=== PATIENT | female | born 1965 | race Caucasian/White ===

== ENCOUNTER 2017-03-14 15:17 | Emergency (ER) | payer OTHER ==
[2017-03-14] MEDS ORDERED: Sodium Chloride 0.9% 1000 ML 1,000 ML IV STA (15:40)
[2017-03-14] MEDS ORDERED: Sodium Chloride 0.9% 1000 ML 1,000 ML ONE (15:43)
--- NOTE | 2017-03-14 16:04 | ERPHSYRPT ---
- History of Present Illness Time Seen by Provider: 03/14/17 16:03 Source: patient Exam Limitations: no limitations Patient Subjective Stated Complaint: pt here for loose stools since last wednesday, fever, nausea, no vomiting. Triage Nursing Assessment: pt walked in, resp easy, skin w/d pink, abd soft, pt has generalized abd pain, no edema Physician History: pt here for loose stools since last wednesday, fever, nausea, no vomiting. Timing/Duration: week(s) (one week) Associated Symptoms: abdominal pain Allergies/Adverse Reactions: codeine [Codeine] Allergy (Mild, Verified 03/14/17 15:26) doxycycline Allergy (Mild, Verified 03/14/17 15:26) Penicillins Allergy (Mild, Verified 03/14/17 15:26) aspirin Allergy (Unknown, Verified 03/14/17 15:26) Difficulty Breathing Patient states she has a sensitivity to aspirin. Home Medications: Ipratropium/Albuterol Sulfate [Combivent Inhaler] 2 puff IH .PRN PRN 07/06/12 [ History] Lisinopril 10 mg [Zestril 10 MG] 10 mg PO BID 02/28/13 [History] Fluticasone/Salmeterol [Advair 250-50 Diskus] 2 puff IH BID 01/15/15 [History] Magnesium Oxide 400 mg [Mag-Ox 400] 1 tab PO HS 06/03/15 [History] Hx Tetanus, Diphtheria Vaccination/Date Given: Yes Hx Influenza Vaccination/Date Given: No Hx Pneumococcal Vaccination/Date Given: No Immunizations Up to Date: Yes - Review of Systems Constitutional: No Fever, No Chills Eyes: No Symptoms Ears, Nose, & Throat: No Symptoms Respiratory: No Cough, No Dyspnea Cardiac: No Chest Pain, No Edema, No Syncope Abdominal/Gastrointestinal: Abdominal Pain, Diarrhea, No Nausea, No Vomiting Genitourinary Symptoms: No Dysuria Musculoskeletal: No Back Pain, No Neck Pain Skin: No Rash Neurological: No Dizziness, No Focal Weakness, No Sensory Changes Psychological: No Symptoms Endocrine: No Symptoms All Other Systems: Reviewed and Negative - Past Medical History Pertinent Past Medical History: Yes Neurological History: Peripheral Neuropathy ENT History: Other Cardiac History: Hypertension Respiratory History: Asthma Endocrine Medical History: Hypoglycemia Musculoskeletal History: Fibromyalgia GI Medical History: No Pertinent History, Other History: Other Psycho-Social History: No Pertinent History Female Reproductive Disorders: No Pertinent History Other Medical History: neuropathy. chronic fatigue. kidney failure. fibroid cyst in uterous 9 cm - Past Surgical History Past Surgical History: Yes Neuro Surgical History: No Pertinent History Cardiac: No Pertinent History Respiratory: No Pertinent History Gastrointestinal: Cholecystectomy Genitourinary: No Pertinent History Musculoskeletal: No Pertinent History Female Surgical History: Other Other Surgical History: sinus, d & c - Social History Smoking Status: Never smoker Exposure to second hand smoke: No Drug Use: none Patient Lives Alone: No Significant Family History: diabetes, hypertension - Female History Hx Last Menstrual Period: jan Hx Now: No - Nursing Vital Signs Nursing Vital Signs: Initial Vital Signs Temperature 97.7 F 03/14/17 15:21 Pulse Rate 100 H 03/14/17 15:21 Respiratory Rate 16 03/14/17 15:21 Blood Pressure 109/63 03/14/17 15:21 O2 Sat by Pulse Oximetry 96 03/14/17 15:21 Pain Scale Pain Intensity 4 - Physical Exam General Appearance: no apparent distress, alert Eye Exam: PERRL/EOMI, eyes nml inspection Ears, Nose, Throat Exam: normal ENT inspection, TMs normal, pharynx normal, moist mucous membranes Neck Exam: normal inspection, non-tender, supple, full range of motion Respiratory Exam: normal breath sounds, lungs clear, No respiratory distress Cardiovascular Exam: regular rate/rhythm, normal heart sounds, normal peripheral pulses Gastrointestinal/Abdomen Exam: soft, normal bowel sounds, No tenderness, No mass Back Exam: normal inspection, normal range of motion, No CVA tenderness, No vertebral tenderness Extremity Exam: normal inspection, normal range of motion, pelvis stable Neurologic Exam: alert, oriented x 3, cooperative, normal mood/affect, nml cerebellar function, nml station & gait, sensation nml, No motor deficits Skin Exam: normal color, warm, dry, No rash Lymphatic Exam: No adenopathy SpO2: 96 Oxygen Delivery: Room Air - Course Nursing assessment & vital signs reviewed: Yes Ordered Tests: Active Orders 24 hr Category Date Time Status Clean Catch Urine Specimen STAT Care 03/14/17 15:54 Active IV Insertion STAT Care 03/14/17 15:42 Active AMYLASE Stat Lab 03/14/17 16:05 Completed CBC W DIFF Stat Lab 03/14/17 16:05 Completed CMP Stat Lab 03/14/17 16:05 Completed CULTURE,URINE Stat Lab 03/14/17 16:05 Received LIPASE Stat Lab 03/14/17 16:05 Completed UA W/ MICROSCOPIC Stat Lab 03/14/17 16:05 Completed Urine Triage Profile Stat Lab 03/14/17 16:05 Completed Medication Summary Generic Name Dose Route Start Last Admin Trade Name Frejoanne PRN Reason Stop Dose Admin Ciprofloxacin 500 mg 03/14/17 16:37 Cipro 500 Mg PO 03/14/17 16:38 BID STA Sodium Chloride 1,000 mls @ 999 mls/hr 03/14/17 15:40 03/14/17 15:51 Sodium Chloride 0.9% 1000 Ml IV 03/14/17 16:40 999 mls/hr .Q1H1M STA Administration Discontinued Medications Generic Name Dose Route Start Last Admin Trade Name Freq PRN Reason Stop Dose Admin Sodium Chloride Confirm 03/14/17 15:43 Sodium Chloride 0.9% 1000 Ml Administered 03/14/17 15:44 Dose 1,000 mls @ ud .ROUTE .STK-MED ONE Lab/Rad Data: Laboratory Result Diagrams 03/14/17 16:05 03/14/17 16:05 Laboratory Results 03/14/17 03/14/17 03/14/17 Range/Units 16:05 16:05 16:05 WBC (4.0-10.5) K/mm3 RBC (4.1-5.4) M/mm3 Hgb (12.0-16.0) gm/dl Hct (35-47) % MCV (78-100) fl MCH (26-32) pg MCHC (32-36) g/dl RDW (11.5-14.0) % Plt Count (150-450) K/mm3 MPV (6-9.5) fl Gran % (36.0-66.0) % Lymphocytes % (24.0-44.0) % Monocytes % (0.0-12.0) % Eosinophils % (0.00-5.0) % Basophils % (0.0-0.4) % Basophils # (0-0.4) Sodium 134 L (136-145) mEq/L Potassium 3.2 L (3.5-5.1) mEq/L Chloride 101 (98-107) mEq/L Carbon Dioxide 23.7 (21-32) mEq/L Anion Gap 12.7 (5-15) MEQ/L BUN 23 H (9-20) mg/dL Creatinine 0.72 (0.55-1.30) mg/dl Estimated GFR > 60 ML/MIN Glucose 90 (70-110) MG/DL Calcium 8.6 (8.5-10.1) mg/dL Total Bilirubin 0.50 (0.2-1.0) mg/dL AST 14 L (15-37) U/L ALT 27 (12-78) U/L Alkaline Phosphatase 77 (46-116) U/L Serum Total Protein 6.9 (6.4-8.2) gm/dL Albumin 3.3 L (3.4-5.0) g/dL Amylase 36 (25-115) U/L Lipase 86 (73-393) U/L Ur Collection Type CLEAN CATCH Urine Color YELLOW (YELLOW) Urine Appearance HAZY (CLEAR) Urine pH 5.0 (5-6) Ur Specific Cunningham 1.025 (1.005-1.025) Urine Protein TRACE (Negative) Urine Ketones NEGATIVE (NEGATIVE) Urine Blood 250 (0-5) Yogi/ul Urine Nitrite NEGATIVE (NEGATIVE) Urine Bilirubin NEGATIVE (NEGATIVE) Urine Urobilinogen NORMAL (0-1) mg/dL Ur Leukocyte Esterase 2+ (NEGATIVE) Urine Microscopic RBC 5-10 (0-2) /HPF Urine Microscopic WBC 10-15 (0-5) /HPF Ur Epithelial Cells FEW (FEW) /HPF Urine Bacteria MODERATE (NEGATIVE) /HPF Urine Mucus SLIGHT (NEGATIVE) /HPF Urine Culture Reflexed YES (NO) Urine Glucose NEGATIVE (NEGATIVE) mg/dL Urine Opiates Level NEG. (NEGATIVE) Ur Methadone NEG. (NEGATIVE) Urine Barbiturates NEG. (NEGATIVE) Ur Phencyclidine (PCP) NEG. (NEGATIVE) Urine Amphetamine NEG. (NEGATIVE) U Benzodiazepine Level NEG. (NEGATIVE) Urine Cocaine NEG. (NEGATIVE) Urine Marijuana (THC) NEG. (NEGATIVE) Specimen Received 03-145 03/14/17 Range/Units 16:05 WBC 6.6 (4.0-10.5) K/mm3 RBC 4.54 (4.1-5.4) M/mm3 Hgb 12.9 (12.0-16.0) gm/dl Hct 40.4 (35-47) % MCV 89.0 (78-100) fl MCH 28.4 (26-32) pg MCHC 31.9 L (32-36) g/dl RDW 15.8 H (11.5-14.0) % Plt Count 277 (150-450) K/mm3 MPV 8.7 (6-9.5) fl Gran % 75.3 H (36.0-66.0) % Lymphocytes % 14.5 L (24.0-44.0) % Monocytes % 8.6 (0.0-12.0) % Eosinophils % 1.4 (0.00-5.0) % Basophils % 0.2 (0.0-0.4) % Basophils # 0.01 (0-0.4) Sodium (136-145) mEq/L Potassium (3.5-5.1) mEq/L Chloride (98-107) mEq/L Carbon Dioxide (21-32) mEq/L Anion Gap (5-15) MEQ/L BUN (9-20) mg/dL Creatinine (0.55-1.30) mg/dl Estimated GFR ML/MIN Glucose (70-110) MG/DL Calcium (8.5-10.1) mg/dL Total Bilirubin (0.2-1.0) mg/dL AST (15-37) U/L ALT (12-78) U/L Alkaline Phosphatase (46-116) U/L Serum Total Protein (6.4-8.2) gm/dL Albumin (3.4-5.0) g/dL Amylase (25-115) U/L Lipase (73-393) U/L Ur Collection Type Urine Color (YELLOW) Urine Appearance (CLEAR) Urine pH (5-6) Ur Specific Cunningham (1.005-1.025) Urine Protein (Negative) Urine Ketones (NEGATIVE) Urine Blood (0-5) Yogi/ul Urine Nitrite (NEGATIVE) Urine Bilirubin (NEGATIVE) Urine Urobilinogen (0-1) mg/dL Ur Leukocyte Esterase (NEGATIVE) Urine Microscopic RBC (0-2) /HPF Urine Microscopic WBC (0-5) /HPF Ur Epithelial Cells (FEW) /HPF Urine Bacteria (NEGATIVE) /HPF Urine Mucus (NEGATIVE) /HPF Urine Culture Reflexed (NO) Urine Glucose (NEGATIVE) mg/dL Urine Opiates Level (NEGATIVE) Ur Methadone (NEGATIVE) Urine Barbiturates (NEGATIVE) Ur Phencyclidine (PCP) (NEGATIVE) Urine Amphetamine (NEGATIVE) U Benzodiazepine Level (NEGATIVE) Urine Cocaine (NEGATIVE) Urine Marijuana (THC) (NEGATIVE) Specimen Received - Progress Progress: improved Counseled pt/family regarding: lab results, diagnosis, need for follow-up - Departure Time of Disposition: 16:41 Departure Disposition: Home Clinical Impression: Recurrent urinary tract infection Diarrhea Qualifiers: Diarrhea type: unspecified type Qualified Code(s): R19.7 - Diarrhea, unspecified Condition: Stable Critical Care Time: No Referrals: BETH KENT [Primary Care Provider] - Instructions: Urinary Tract Infection (UTI), Diarrhea and Traveler's Diarrhea - - Adult Additional Instructions: VOMITING AND DIARRHEA 1. Take only small amounts of clear, cool liquids at frequent intervals as tolerated for the next 24-48 hours. Avoid milk products and orange juice. Clear liquids are those liquids which you can see through. 2. Pedialyte and popsicles are recommended clear liquids. 3. If the condition worsens you should contact your family physician or return to the emergency department for re-evaluation. URINARY TRACT INFECTION 1. You will need to drink plenty of fluids in order to keep your urinary system flushed. These fluids should mainly consist of water and juices. 2. Take medications as directed. You need to completely finish any antiobiotic prescription given. 3. Try to avoid coffee, tea, alcohol, and seasoned foods as they may cause bladder irritation. 4. If signs and symptoms persist after 3-4 days, you will need to follow up with your family physician. 5. Female Patients: A. Avoid intercourse for 3-4 days. B. Empty bladder before and after intercourse to reduce risk of re- infection. C. After emptying bladder, wipe from front to back to reduce the risk of re- infection. Please follow the instructions given to you. Please take your medication as prescribed if given. If symptoms recur or get worse, come back to the emergency room if you cannot reach your primary care physician, or call your primary care physician for an appointment. Again if your symptoms get worse, come back to the emergency room. Thanks for visiting emergency room, and let us take care of you. Prescriptions: Ciprofloxacin [Cipro 500 MG] 500 mg PO BIDAC #15 tablet
[2017-03-14 16:10] LABS: BASOPHIL % 0.2 % (0.0-0.4); Eosinophil % 1.4 % (0.00-5.0); Granulocytes % 75.3 % (36.0-66.0); Lymphocytes % 14.5 % (24.0-44.0); Mean Corpuscular Hemoglobin 28.4 pg (26-32); Mean Platelet Volume 8.7 fl (6-9.5); Monocytes % 8.6 % (0.0-12.0); Platelet Count 277 K/mm3 (150-450); Red Blood Count 4.54 M/mm3 (4.1-5.4); Red Cell Distribution Width 15.8 % (11.5-14.0); White Blood Count 6.6 K/mm3 (4.0-10.5)
[2017-03-14 16:12] LABS: Collection Type CLEAN CATCH
[2017-03-14 16:13] LABS: Bilirubin NEGATIVE (NEGATIVE); Blood 250 Ery/ul (0-5); COMPLETE URINE MICROSCOPIC? YES; Glucose NEGATIVE (NEGATIVE); Leukocyte Esterase 2+ (NEGATIVE)
[2017-03-14 16:26] LABS: ADD URINE CULTURE? YES (NO); Bacteria MODERATE /HPF (NEGATIVE); Epithelial Cells FEW /HPF (FEW); Mucus SLIGHT /HPF (NEGATIVE)
[2017-03-14 16:35] LABS: ALBUMIN 3.3 g/dL (3.4-5.0); ALKALINE PHOSPHATASE 77 U/L (46-116); ANION GAP 12.7 MEQ/L (5-15); BLOOD UREA NITROGEN 23 mg/dL (9-20); CHLORIDE 101 mEq/L (98-107); Carbon Dioxide 23.7 mEq/L (21-32); Glucose 90 MG/DL (70-110); LIPASE 86 U/L (73-393); Potassium 3.2 mEq/L (3.5-5.1); SGOT/AST 14 U/L (15-37); SGPT/ALT 27 U/L (12-78); SODIUM 134 mEq/L (136-145); Total Protein 6.9 gm/dL (6.4-8.2)
[2017-03-14] MEDS ORDERED: Cipro 500 MG PO STA (16:37)
[2017-03-14] MEDS ORDERED: Cipro 500 MG ONE (16:40)
[2017-03-14 16:41] VITALS: O2SAT 96
[2017-03-14 16:48] VITALS: BP 104/60; PULSE 84
== END 2017-03-14 16:55 | disposition home or self-care (01) ==
LOC: ED 15:17
DX: N39.0 Urinary tract infection, site not specified (principal); R19.7 Diarrhea, unspecified; R50.9 Fever, unspecified; R11.0 Nausea; R10.9 Unspecified abdominal pain
CPT/HCPCS: 36000; 36415; 80053; 80307; 81000; 82150; 83690; 85025; 87086; 96360; 99284; A9270-GY

== ENCOUNTER 2017-05-01 18:41 | Emergency (ER) | payer OTHER ==
[2017-05-01] MEDS ORDERED: Rocephin 1000 MG INJ IM ONE (20:11)
[2017-05-01] MEDS ORDERED: Rocephin 1000 MG INJ ONE (20:17)
--- NOTE | 2017-05-01 20:17 | ERPHSYRPT ---
- History of Present Illness Time Seen by Provider: 05/01/17 20:12 Source: patient Exam Limitations: no limitations Physician History: c/o sore throat, left ear pain for 2-3 days, no fever Timing/Duration: gradual onset ENT Location: ear (L) Prearrival Treatment: no prearrival treatment Associated Symptoms: ear pain (L), nasal congestion/drainage, sinus infection, sore throat, No ear drainage Allergies/Adverse Reactions: codeine [Codeine] Allergy (Mild, Verified 03/14/17 15:26) doxycycline Allergy (Mild, Verified 03/14/17 15:26) Penicillins Allergy (Mild, Verified 03/14/17 15:26) aspirin Allergy (Unknown, Verified 03/14/17 15:26) Difficulty Breathing Patient states she has a sensitivity to aspirin. Home Medications: Ipratropium/Albuterol Sulfate [Combivent Inhaler] 2 puff IH .PRN PRN 07/06/12 [ History] Lisinopril 10 mg [Zestril 10 MG] 10 mg PO BID 02/28/13 [History] Fluticasone/Salmeterol [Advair 250-50 Diskus] 2 puff IH BID 01/15/15 [History] Magnesium Oxide 400 mg [Mag-Ox 400] 1 tab PO HS 06/03/15 [History] Hx Tetanus, Diphtheria Vaccination/Date Given: Yes Hx Influenza Vaccination/Date Given: No Hx Pneumococcal Vaccination/Date Given: No - Review of Systems Constitutional: No Fever, No Chills Eyes: No Symptoms Ears, Nose, & Throat: Ear Pain, Sinus Drainage Respiratory: No Cough, No Dyspnea Cardiac: No Chest Pain, No Edema, No Syncope Abdominal/Gastrointestinal: No Abdominal Pain, No Nausea, No Vomiting, No Diarrhea Genitourinary Symptoms: No Dysuria Musculoskeletal: No Back Pain, No Neck Pain Skin: No Rash Neurological: No Dizziness, No Focal Weakness, No Sensory Changes Psychological: No Symptoms Endocrine: No Symptoms All Other Systems: Reviewed and Negative - Past Medical History Pertinent Past Medical History: Yes Neurological History: Peripheral Neuropathy ENT History: Other Cardiac History: Hypertension Respiratory History: Asthma Endocrine Medical History: Hypoglycemia Musculoskeletal History: Fibromyalgia GI Medical History: No Pertinent History, Other History: Other Psycho-Social History: No Pertinent History Female Reproductive Disorders: No Pertinent History Other Medical History: neuropathy. chronic fatigue. kidney failure. fibroid cyst in uterous 9 cm - Past Surgical History Past Surgical History: Yes Neuro Surgical History: No Pertinent History Cardiac: No Pertinent History Respiratory: No Pertinent History Gastrointestinal: Cholecystectomy Genitourinary: No Pertinent History Musculoskeletal: No Pertinent History Female Surgical History: Other Other Surgical History: sinus, d & c - Social History Smoking Status: Never smoker Exposure to second hand smoke: No Drug Use: none Patient Lives Alone: No Significant Family History: diabetes, hypertension - Physical Exam General Appearance: no apparent distress, alert Eye Exam: bilateral eye: PERRL, EOMI Ear Exam: left ear: erythema Nasal Exam: normal inspection Throat Exam: moist mucus membranes, pharynx swelling, No pharynx tenderness, No tonsillar exudate Neck Exam: supple Cardiovascular/Respiratory Exam: normal breath sounds, regular rate/rhythm Abdominal Exam: non-tender, soft Neurologic Exam: alert, oriented x 3, sensation nml, No motor deficits Skin Exam: normal color, warm, dry - Course Nursing assessment & vital signs reviewed: Yes Ordered Tests: Medication Summary Discontinued Medications Generic Name Dose Route Start Last Admin Trade Name Freq PRN Reason Stop Dose Admin Ceftriaxone Sodium 1,000 mg 05/01/17 20:11 Rocephin 1000 Mg Inj IM 05/01/17 20:12 STAT ONE - Progress Progress: unchanged Counseled pt/family regarding: diagnosis, need for follow-up - Departure Time of Disposition: 20:14 Departure Disposition: Home Clinical Impression: Otitis media Qualifiers: Otitis media type: suppurative Chronicity: acute Laterality: left Recurrence: not specified as recurrent Spontaneous tympanic membrane rupture: without spontaneous rupture Qualified Code(s): H66.002 - Acute suppurative otitis media without spontaneous rupture of ear drum, left ear Condition: Stable Critical Care Time: No Instructions: Otitis Media (Middle Ear Infection) Additional Instructions: EARACHE 1. If antibiotics are prescribed, take them as directed until gone. 2. Decongestants may be useful. 3. Avoid inserting objects into the ear, such as Q-tips. 4. Acetaminophen or Ibuprofen as directed may help reduce any temperature and help with any associated pain. 5. Contact your child's family physician if there is no improvement in the child's condition within 48 hours. Prescriptions: Smz/Tmp Ds Tablet [Bactrim Ds Tablet] 1 udtab PO BID #20 tablet
[2017-05-01 20:24] VITALS: BP 129/55; PULSE 83; O2SAT 100
== END 2017-05-01 20:34 | disposition home or self-care (01) ==
LOC: ED 18:41
DX: H66.002 Acute suppurative otitis media without spontaneous rupture of ear drum, left ear (principal)
CPT/HCPCS: 96372; 99283; J0696

== ENCOUNTER 2017-06-12 19:40 | Emergency (ER) | payer OTHER ==
--- NOTE | 2017-06-12 20:32 | ERPHSYRPT ---
- History of Present Illness Time Seen by Provider: 06/12/17 20:20 Source: patient Exam Limitations: no limitations Patient Subjective Stated Complaint: Cough, fever Triage Nursing Assessment: Cough earlier today, now states fever and increased SOB with activity. Pt denies other complaints. Pt is A&O x4, no distress noted. Physician History: SINCE YESTERDAY PT HAS HAD NAUSEA; TODAY A SORE THROAT, SUBJECTIVE FEVER, A NON- PRODUCTIVE COUGH AND ACHES IN HER LEGS, BACK AND CHEST. Allergies/Adverse Reactions: codeine [Codeine] Allergy (Mild, Verified 03/14/17 15:26) doxycycline Allergy (Mild, Verified 03/14/17 15:26) Penicillins Allergy (Mild, Verified 03/14/17 15:26) aspirin Allergy (Unknown, Verified 03/14/17 15:26) Difficulty Breathing Patient states she has a sensitivity to aspirin. Home Medications: Ipratropium/Albuterol Sulfate [Combivent Inhaler] 2 puff IH .PRN PRN 07/06/12 [ History] Lisinopril 10 mg [Zestril 10 MG] 10 mg PO BID 02/28/13 [History] Fluticasone/Salmeterol [Advair 250-50 Diskus] 2 puff IH BID 01/15/15 [History] Magnesium Oxide 400 mg [Mag-Ox 400] 1 tab PO HS 06/03/15 [History] Hx Tetanus, Diphtheria Vaccination/Date Given: No Hx Influenza Vaccination/Date Given: No Hx Pneumococcal Vaccination/Date Given: No Immunizations Up to Date: No - Review of Systems Constitutional: Fever Ears, Nose, & Throat: Throat Pain Respiratory: Cough Abdominal/Gastrointestinal: Nausea Musculoskeletal: Myalgias All Other Systems: Reviewed and Negative - Past Medical History Pertinent Past Medical History: Yes Neurological History: Peripheral Neuropathy ENT History: Other Cardiac History: Hypertension Respiratory History: Asthma Endocrine Medical History: Hypoglycemia Musculoskeletal History: Fibromyalgia GI Medical History: No Pertinent History, Other History: Other Psycho-Social History: No Pertinent History Female Reproductive Disorders: No Pertinent History Other Medical History: neuropathy. chronic fatigue. kidney failure. fibroid cyst in uterous 9 cm - Past Surgical History Past Surgical History: Yes Neuro Surgical History: No Pertinent History Cardiac: No Pertinent History Respiratory: No Pertinent History Gastrointestinal: Cholecystectomy Genitourinary: No Pertinent History Musculoskeletal: No Pertinent History Female Surgical History: Other Other Surgical History: sinus, d & c - Social History Smoking Status: Never smoker Exposure to second hand smoke: No Drug Use: none Patient Lives Alone: No Significant Family History: diabetes, hypertension - Female History Hx Now: No - Nursing Vital Signs Nursing Vital Signs: Initial Vital Signs Temperature 98.5 F 06/12/17 19:47 Pulse Rate 113 H 06/12/17 19:47 Respiratory Rate 22 06/12/17 19:47 Blood Pressure 125/94 06/12/17 19:47 O2 Sat by Pulse Oximetry 97 06/12/17 19:47 Pain Scale Pain Intensity 4 - Physical Exam General Appearance: alert Eye Exam: PERRL/EOMI Ears, Nose, Throat Exam: TMs normal, moist mucous membranes, pharyngeal erythema Neck Exam: normal inspection Respiratory Exam: lungs clear Cardiovascular Exam: normal heart sounds Gastrointestinal/Abdomen Exam: soft, normal bowel sounds Back Exam: normal range of motion Extremity Exam: normal inspection Neurologic Exam: alert, cooperative Skin Exam: warm, dry SpO2 Interpretation: normal SpO2: 97 Oxygen Delivery: Room Air - Course Nursing assessment & vital signs reviewed: Yes Ordered Tests: Active Orders 24 hr Category Date Time Status CULTURE, THROAT Stat Lab 06/12/17 20:43 Received STREP SCREEN-BETA A Stat Lab 06/12/17 20:43 Completed Lab/Rad Data: Laboratory Results 06/12/17 Range/Units 20:43 Streptococcus Screen NEGATIVE (Negative) - Progress Progress Note: 06/12/17 21:42 PT CANNOT TAKE TAMIFLU. - Departure Time of Disposition: 21:43 Departure Disposition: Home Clinical Impression: INFLUENZA "A" Condition: Stable Critical Care Time: No Referrals: BETH KENT [Primary Care Provider] - Instructions: Flu Additional Instructions: FOLLOW UP WITH PRIVATE DOCTOR TOMORROW. Prescriptions: Ibuprofen 200 mg [Motrin 200 mg] 600 mg PO Q6HPRN PRN #20 tablet PRN Reason: Pain And/Or Fever
[2017-06-12 21:38] LABS: INFLUENZA A POSITIVE (NEGATIVE); INFLUENZA B NEGATIVE (NEGATIVE); RESPIRATORY SYNCTIAL VIRUS NEGATIVE (Negative)
[2017-06-12 22:00] VITALS: BP 122/74; PULSE 100; O2SAT 98
== END 2017-06-12 22:00 | disposition home or self-care (01) ==
LOC: ED 19:40
DX: J10.1 Influenza due to other identified influenza virus with other respiratory manifestations (principal)
CPT/HCPCS: 87070; 87430; 87631; 99283

== ENCOUNTER 2017-07-08 23:04 | Emergency (ER) | payer OTHER ==
[2017-07-08] MEDS ORDERED: ULTRAM 50 MG PO ONE (23:43)
[2017-07-08] MEDS ORDERED: Cyclobenzaprine 10 MG PO ONE (23:46)
--- NOTE | 2017-07-08 23:48 | ERPHSYRPT ---
- History of Present Illness Time Seen by Provider: 07/08/17 23:34 Source: patient Exam Limitations: no limitations Patient Subjective Stated Complaint: Left Arm Pain Triage Nursing Assessment: Pt presents to the ED with complaints of left arm pain after falling today. Pt states she was pulled by dog to the ground. Pt states she has left shoulder pain, left rib pain, and left teixeira pain. Pt denies loss of consciousness. Pt is A&O x4, no distress noted, skin pwd. Physician History: AT 1500 YESTERDAY AT HER DAUGHTER'S RESIDENCE PT WAS WALKING AN ALMOST 4 YEAR OLD BL[employer]US[employer] DOG WITH HER LEFT HAND ON THE LEASH WHEN THE DOG PULLED HER AND SHE FELL ON A WOODEN DECK ON HER LEFT SIDE HITTING THE LEFT SIDE OF HER HEAD WITH RESULTANT HEADACHE, NECK STIFFNESS, BRUISING OF THE LEFT TEIXEIRA, PAIN/ ABRASION OF THE LEFT ELBOW, PAIN IN THE LEFT ARM, RIBS AND SHOULDER. PT DENIES ABDOMINAL PAIN, FEVER, VOMITING, SHORTNESS OF AIR, NUMBNESS. Allergies/Adverse Reactions: codeine [Codeine] Allergy (Mild, Verified 03/14/17 15:26) doxycycline Allergy (Mild, Verified 03/14/17 15:26) Penicillins Allergy (Mild, Verified 03/14/17 15:26) aspirin Allergy (Unknown, Verified 03/14/17 15:26) Difficulty Breathing Patient states she has a sensitivity to aspirin. Home Medications: Ipratropium/Albuterol Sulfate [Combivent Inhaler] 2 puff IH .PRN PRN 07/06/12 [ History] Lisinopril 10 mg [Zestril 10 MG] 10 mg PO BID 02/28/13 [History] Fluticasone/Salmeterol [Advair 250-50 Diskus] 2 puff IH BID 01/15/15 [History] Magnesium Oxide 400 mg [Mag-Ox 400] 1 tab PO HS 06/03/15 [History] Hx Tetanus, Diphtheria Vaccination/Date Given: Yes Hx Influenza Vaccination/Date Given: No Hx Pneumococcal Vaccination/Date Given: No Immunizations Up to Date: No - Review of Systems Constitutional: No Fever Respiratory: No Dyspnea Cardiac: Other (LEFT RIB PAIN) Abdominal/Gastrointestinal: No Abdominal Pain, No Vomiting Musculoskeletal: Neck Pain, Other (PAIN IN LEFT SHOULDER, ARM, ELBOW, TEIXEIRA.) Neurological: Headache, No Sensory Changes All Other Systems: Reviewed and Negative - Past Medical History Pertinent Past Medical History: Yes Neurological History: Peripheral Neuropathy ENT History: Other Cardiac History: Hypertension Respiratory History: Asthma Endocrine Medical History: Hypoglycemia Musculoskeletal History: Fibromyalgia GI Medical History: No Pertinent History, Other History: Other Psycho-Social History: No Pertinent History Female Reproductive Disorders: No Pertinent History Other Medical History: neuropathy. chronic fatigue. kidney failure. fibroid cyst in uterous 9 cm - Past Surgical History Past Surgical History: Yes Neuro Surgical History: No Pertinent History Cardiac: No Pertinent History Respiratory: No Pertinent History Gastrointestinal: Cholecystectomy Genitourinary: No Pertinent History Musculoskeletal: No Pertinent History Female Surgical History: Other Other Surgical History: sinus, d & c - Social History Smoking Status: Never smoker Exposure to second hand smoke: No Drug Use: none Patient Lives Alone: No Significant Family History: diabetes, hypertension - Female History Hx Now: No - Nursing Vital Signs Nursing Vital Signs: Initial Vital Signs Temperature 97.4 F 07/08/17 23:15 Pulse Rate 82 07/08/17 23:15 Respiratory Rate 16 07/08/17 23:15 Blood Pressure 146/95 07/08/17 23:15 O2 Sat by Pulse Oximetry 96 07/08/17 23:15 Pain Scale Pain Intensity 7 - [place] Coma Score Best Eye Response (Gaurang): (4) open spontaneously Best Verbal Response (Gaurang): (5) oriented Best Motor Response (Gaurang): (6) obeys commands Gaurang Total: 15 - Physical Exam General Appearance: alert Head Injury: no evidence of injury Eye Exam: PERRL/EOMI ENT Exam: airway nml, hearing grossly normal, No clear fluid (ears), No clear fluid (nose) Neck Exam: trachea midline, No tenderness Respiratory/Chest Exam: chest tenderness (MILD LEFT LATERAL CHEST TENDERNESS OVER THE 7TH RIB WITHOUT CREPITUS), normal breath sounds Cardiovascular Exam: normal heart sounds Gastrointestinal Exam: soft, normal bowel sounds Back Exam: normal range of motion Extremity Exam: tenderness (MILD TENDERNESS OVER A ~ 3 CM DIAMETER [place] OVER THE DISTAL LEFT TEIXEIRA; MILD TENDERNESS OVER THE DISTAL ASPECT OF THE LEFT ARM; MILD TENDERNESS OVER A ~2 CM X 1/2 CM ABRASION OF THE LEFT ELBOW WITH MILD EDEMA.) Peripheral Pulses: dorsalis-pedis (R): 3+, dorsalis-pedis (L): 3+ Neurologic Exam: alert, cooperative, sensation nml SpO2 Interpretation: normal SpO2: 96 Oxygen Delivery: Room Air - Course Nursing assessment & vital signs reviewed: Yes - Radiology Exams Left Ribs X-ray Interpretation: Teleradiologist Report (NO ACUTE FRACTURE) Left Elbow X-ray Interpretation: Teleradiologist Report (MILD IRREGULARITY OF THE CORONOID PROCESS ON THE LATERAL VIEW IS LIKELY DEGENERATIVE.) Left Lower Leg X-ray Interpretation: Interpreted by me, No Fracture - CT Exams Cervical Spine CT Interpretation: Tele-radiologist Report (NO ACUTE FRACTURE) Head CT Interpretation: Tele-radiologist Report (NO ACUTE INTRACRANIAL PROCESS) Ordered Tests: Active Orders 24 hr Category Date Time Status Cervical Collar Application STAT Care 07/08/17 23:43 Active Sling Application STAT Care 07/08/17 23:43 Active Wound Care STAT Care 07/09/17 01:34 Active CERVICAL SPINE WO CONTRAST [CT] Stat Exams 07/08/17 23:44 Taken ELBOW (MINIMUM 3 VIEWS) Stat Exams 07/09/17 00:23 Taken HEAD WITHOUT CONTRAST [CT] Stat Exams 07/08/17 23:44 Taken HUMERUS Stat Exams 07/09/17 00:23 Taken LOWER LEG Routine Exams 07/09/17 01:13 Taken RIBS UNILATERAL Stat Exams 07/09/17 00:23 Taken SHOULDER Stat Exams 07/09/17 00:23 Taken Medication Summary Discontinued Medications Generic Name Dose Route Start Last Admin Trade Name Freq PRN Reason Stop Dose Admin Cyclobenzaprine HCl 10 mg 07/08/17 23:46 07/09/17 00:56 Cyclobenzaprine 10 Mg PO 07/08/17 23:47 10 mg STAT ONE Administration Cyclobenzaprine HCl Confirm 07/09/17 00:17 Cyclobenzaprine 10 Mg Administered 07/09/17 00:18 Dose 10 mg .ROUTE .STK-MED ONE Tramadol HCl 50 mg 07/08/17 23:43 07/09/17 00:56 Ultram 50 Mg PO 07/08/17 23:44 50 mg STAT ONE Administration Tramadol HCl Confirm 07/09/17 00:17 Ultram 50 Mg Administered 07/09/17 00:18 Dose 50 mg .ROUTE .STK-MED ONE - Departure Time of Disposition: 01:41 Departure Disposition: Home Clinical Impression: FALL, HEAD CONTUSION, CERVICAL SPRAIN, LEFT LEG CONTUSION, CONTUSION/ABRASION OF LEFT ELBOW, LEFT SHOULDER SPRAIN, LEFT ARM AND RIB PAIN Condition: Stable Critical Care Time: No Referrals: BETH KENT [Primary Care Provider] - Instructions: Whiplash (DC) Additional Instructions: FOLLOW UP WITH PRIVATE DOCTOR TOMORROW. WEAR SOFT C-COLLAR FOR 2 WEEKS ONLY WHILE AWAKE. WEAR LEFT ARM SLING FOR COMFORT. NEOSPORIN & BANDAGE DAILY TO LEFT ELBOW ABRASION FOR 7 DAYS. Prescriptions: Tramadol HCl 50 mg [Ultram 50 mg] 50 mg PO Q4H PRN PRN #20 tablet PRN Reason: Pain Cyclobenzaprine HCl [Flexeril] 10 mg PO TID #20 tablet
[2017-07-09] MEDS ORDERED: Cyclobenzaprine 10 MG ONE (00:17)
[2017-07-09] MEDS ORDERED: ULTRAM 50 MG ONE (00:17)
[2017-07-09 01:03] VITALS: BP 133/67; PULSE 60
[2017-07-09 01:32] VITALS: O2SAT 96
[2017-07-09] MEDS ORDERED: BACIGUENT PACKET TP ONE (01:42)
[2017-07-09] MEDS ORDERED: BACIGUENT PACKET ONE (01:43)
--- NOTE | 2017-07-09 09:12 | XRAY ---
Indication: Pain following fall. Multiple contiguous axial images obtained through the head without contrast. Comparison: July 24, 2014. Again normal appearing brain parenchyma, ventricles, and bony calvarium. Visualized paranasal sinuses and mastoid air cells are clear. Impression: Stable normal CT head without contrast exam. Comment: Preliminary interpretation was made by [facility]. No discrepancy. CT DI 49.27
--- NOTE | 2017-07-09 09:14 | XRAY ---
Indication: Pain following fall. Multiple contiguous axial images obtained through the cervical spine. Sagittal and coronal reformatted images obtained. Comparison: None. Axial images negative for acute fracture, suspicious bony lesions, or spinal canal stenosis. Minimal C5-T1 degenerative endplate spurring and tiny superior C5 subcortical cyst. Sagittal and coronal reformatted images demonstrates normal alignment with disc spaces preserved. No acute compression fracture, subluxation, or jumped facet. Normal-appearing craniocervical junction. Visualized noncontrasted soft tissues including base of the brain and lung apices unremarkable. Impression: 1. Negative acute fracture/subluxation. 2. Incidental minimal C5-T1 degenerative changes. Comment: Preliminary interpretation was made by [facility]. No critical discrepancy. CT DI 125.13
--- NOTE | 2017-07-09 09:18 | XRAY ---
Indication: Pain following fall. Comparison: None 3 views of the left shoulder obtained. No bony, articular, or soft tissue abnormalities.
--- NOTE | 2017-07-09 09:20 | XRAY ---
Indication: Pain following fall. Comparison: None 2 views of the left ribs demonstrates minimal left lung base discoid atelectasis/scarring, mediastinal/splenic calcified granulomas, and minimal multilevel spinal degenerative endplate spurring. No other bony, articular, or soft tissue abnormalities. Comment: Preliminary interpretation was made by [facility]. No discrepancy.
--- NOTE | 2017-07-09 09:22 | XRAY ---
Indication: Pain following fall. Comparison: None 2 views of the left humerus obtained. No bony, articular, or soft tissue abnormalities.
--- NOTE | 2017-07-09 09:24 | XRAY ---
Indication: Pain following fall. Comparison: None 3 views of the left elbow demonstrates tiny coronoid process spurring. No other bony, articular, or soft tissue abnormalities. Comment: Preliminary interpretation was made by [facility]. No discrepancy.
--- NOTE | 2017-07-09 09:24 | XRAY ---
Indication: Pain following fall. Comparison: None 2 views of the left lower leg demonstrates partially visualized calcaneal spurring. No other bony, articular, or soft tissue abnormalities.
== END 2017-07-09 01:45 | disposition home or self-care (01) ==
LOC: ED 23:04
DX: S00.93XA Contusion of unspecified part of head, initial encounter (principal); S13.4XXA Sprain of ligaments of cervical spine, initial encounter; S50.02XA Contusion of left elbow, initial encounter; S40.012A Contusion of left shoulder, initial encounter; R51 Headache; R07.81 Pleurodynia; M79.602 Pain in left arm; W18.39XA Other fall on same level, initial encounter; Y93.K1 Activity, walking an animal
CPT/HCPCS: 70450; 71100; 72125; 73030; 73060; 73080; 73590; 99283; L0120; A9270-GY

== ENCOUNTER 2017-08-11 22:03 | Emergency (ER) | payer OTHER ==
[2017-08-11 22:21] VITALS: O2SAT 93
[2017-08-11] MEDS ORDERED: TYLENOL 325 MG PO STA (22:55)
--- NOTE | 2017-08-11 22:59 | ERPHSYRPT ---
- History of Present Illness Time Seen by Provider: 08/11/17 22:30 Source: patient Exam Limitations: clinical condition Patient Subjective Stated Complaint: Fever and "I think I have the flu." Bilateral leg aches. Triage Nursing Assessment: Pt presents to the ED with complaints of fever. Pt states she was diagnosed with flu in Jun and states she believes her symtpoms are the same. Pt states she first began with cough and nasal drainage but has sense developed a fever. No distress noted, skin PWD. Physician History: PATIENT WITH A HISTORY OF FIBROMYALGIA, HYPERTENSION AND ASTHMA, COMPLAINS OF FLU LIKE SYMPTOMS X 3 DAYS, NONPRODUCTIVE COUGH, UNSURE OF FEVER OR CHILLS. PATIENT COMPLAINS OF SEVERE PAIN IN BOTH LEGS. 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 Home Medications: Ipratropium/Albuterol Sulfate [Combivent Inhaler] 2 puff IH .PRN PRN 07/06/12 [ History] Lisinopril 10 mg [Zestril 10 MG] 10 mg PO BID 02/28/13 [History] Fluticasone/Salmeterol [Advair 250-50 Diskus] 2 puff IH BID 01/15/15 [History] Magnesium Oxide 400 mg [Mag-Ox 400] 1 tab PO HS 06/03/15 [History] Hx Tetanus, Diphtheria Vaccination/Date Given: No Hx Influenza Vaccination/Date Given: No Hx Pneumococcal Vaccination/Date Given: No Immunizations Up to Date: No - Review of Systems Constitutional: Fever Eyes: No Symptoms Ears, Nose, & Throat: No Symptoms Respiratory: No Cough, No Dyspnea Cardiac: No Symptoms, No Chest Pain, No Edema, No Syncope Abdominal/Gastrointestinal: No Symptoms, No Abdominal Pain, No Nausea, No Vomiting, No Diarrhea Genitourinary Symptoms: No Symptoms, No Dysuria Musculoskeletal: Arthralgias, No Back Pain, No Neck Pain Skin: No Rash Neurological: No Dizziness, No Focal Weakness, No Sensory Changes Psychological: No Symptoms Endocrine: No Symptoms All Other Systems: Reviewed and Negative - Past Medical History Pertinent Past Medical History: Yes Neurological History: Peripheral Neuropathy ENT History: Other Cardiac History: Hypertension Respiratory History: Asthma Endocrine Medical History: Hypoglycemia Musculoskeletal History: Fibromyalgia GI Medical History: No Pertinent History, Other History: Other Psycho-Social History: No Pertinent History Female Reproductive Disorders: No Pertinent History Other Medical History: neuropathy. chronic fatigue. kidney failure. fibroid cyst in uterous 9 cm - Past Surgical History Past Surgical History: Yes Neuro Surgical History: No Pertinent History Cardiac: No Pertinent History Respiratory: No Pertinent History Gastrointestinal: Cholecystectomy Genitourinary: No Pertinent History Musculoskeletal: No Pertinent History Female Surgical History: Other Other Surgical History: sinus, d & c - Social History Smoking Status: Never smoker Exposure to second hand smoke: No Drug Use: none Patient Lives Alone: No Significant Family History: diabetes, hypertension - Female History Hx Now: No - Nursing Vital Signs Nursing Vital Signs: Initial Vital Signs Temperature 99.3 F 08/11/17 22:15 Pulse Rate 100 H 08/11/17 22:15 Respiratory Rate 16 08/11/17 22:15 Blood Pressure 153/72 08/11/17 22:15 O2 Sat by Pulse Oximetry 93 L 08/11/17 22:15 Pain Scale Pain Intensity 7 - Physical Exam General Appearance: no apparent distress, alert Eye Exam: PERRL/EOMI ENT Exam: normal ENT inspection, No pharyngeal erythema, No tonsillar exudate Neck Exam: normal inspection, non-tender, supple, full range of motion, No meningismus Respiratory Exam: normal breath sounds, lungs clear, no respiratory distress Cardiovascular/Chest Exam: normal heart sounds, regular rate/rhythm, No murmur, No edema Gastrointestinal/Abdominal Exam: soft, non tender, no distention Extremity Exam: normal range of motion, normal inspection, normal capillary refill, andres's sign (BILATERAL CALF AND THIGH TENDERNESS, FEMORAL, POPLITEAL AND PEDIS PULSES 2+) Neurologic Exam: alert, oriented x 3, cooperative, area counselor II-XII nml as tested, normal mood/affect, sensation nml, No motor deficits Skin Exam: normal color, warm, dry, No rash SpO2 Interpretation: normal SpO2: 93 Oxygen Delivery: Room Air - Radiology Exams Chest X-ray Interpretation: Interpreted by me (HYPER INFLATION, WITHOUT INFILTRATES) - Radiology Ultrasound Exam Venous Lower Extremity Ultrasound: discussed w/radiologist (BILATERAL VENOUS DOPPLER NEGATIVE) Ordered Tests: Active Orders 24 hr Category Date Time Status CHEST 1 VIEW (PORTABLE) Stat Exams 08/12/17 00:16 Taken CULTURE, THROAT Stat Lab 08/11/17 23:08 Received CULTURE,URINE Stat Lab 08/11/17 23:08 Received STREP SCREEN-BETA A Stat Lab 08/11/17 23:08 Completed UA W/ MICROSCOPIC Stat Lab 08/11/17 23:08 Completed Medication Summary Discontinued Medications Generic Name Dose Route Start Last Admin Trade Name Freq PRN Reason Stop Dose Admin Acetaminophen 650 mg 08/11/17 22:55 08/11/17 23:21 Tylenol 325 Mg PO 08/11/17 22:56 650 mg STAT STA Administration Acetaminophen Confirm 08/11/17 23:21 Tylenol 325 Mg Administered 08/11/17 23:22 Dose 650 mg .ROUTE .STK-MED ONE Levofloxacin 500 mg 08/12/17 00:37 08/12/17 00:44 Levofloxacin 250mg Tablet PO 08/12/17 00:38 500 mg STAT ONE Administration Levofloxacin Confirm 08/12/17 00:43 Levofloxacin 250mg Tablet Administered 08/12/17 00:44 Dose 500 mg .ROUTE .STK-MED ONE Lab/Rad Data: Laboratory Results 08/11/17 08/11/17 08/11/17 Range/Units 23:08 23:08 23:08 Ur Collection Type VOID Urine Color RED (YELLOW) Urine Appearance SLIGHTLY CLOUDY (CLEAR) Urine pH 6.0 (5-6) Ur Specific [place] 1.010 (1.005-1.025) Urine Protein TRACE (Negative) Urine Ketones NEGATIVE (NEGATIVE) Urine Blood 250 (0-5) Yogi/ul Urine Nitrite NEGATIVE (NEGATIVE) Urine Bilirubin NEGATIVE (NEGATIVE) Urine Urobilinogen NORMAL (0-1) mg/dL Ur Leukocyte Esterase TRACE (NEGATIVE) Urine Microscopic RBC >100 (0-2) /HPF Urine Microscopic WBC 5-10 (0-5) /HPF Ur Epithelial Cells MODERATE (FEW) /HPF Urine Bacteria MANY (NEGATIVE) /HPF Urine Culture Reflexed YES (NO) Urine Glucose NEGATIVE (NEGATIVE) mg/dL Influenza Type A Ag NEGATIVE (NEGATIVE) Influenza Type B Ag POSITIVE (NEGATIVE) RSV (PCR) NEGATIVE (Negative) Streptococcus Screen NEGATIVE (Negative) Specimen Received 08/11/17 600 - Progress Progress Note: 08/12/17 01:07 ADMINISTERED LEVAQUIN 500MG ORALLY - Departure Time of Disposition: 01:10 Departure Disposition: Home Clinical Impression: INFLUENZA B, ACUTE BRONCHITIS, URINARY TRACT INFECTION Condition: Stable Critical Care Time: No Referrals: BETH KENT [Primary Care Provider] - Additional Instructions: ANTIBIOTIC LEVAQUIN 500MG DAILY FOR 10 DAYS. PERCOGESIC 1 TABLET EVERY 6 HOURS FOR PAIN NEEDED. CONSULT YOUR PRIMARY CARE PROVIDER FOR FOLLOWUP IN 1 WEEK. Prescriptions: Acetaminophen/Diphenhydramine [Percogesic 325-12.5 mg Tablet] 1 each PO Q6H PRN PRN #15 tablet PRN Reason: Pain Levofloxacin [Levaquin] 500 mg PO DAILY #10 tablet
[2017-08-11] MEDS ORDERED: TYLENOL 325 MG ONE (23:21)
[2017-08-11 23:27] LABS: Appearance SLIGHTLY CLOUDY (CLEAR); Bilirubin NEGATIVE (NEGATIVE); Blood 250 Ery/ul (0-5); Glucose NEGATIVE (NEGATIVE); Ketones NEGATIVE (NEGATIVE); Leukocyte Esterase TRACE (NEGATIVE); Nitrite NEGATIVE (NEGATIVE); Protein,Urine Dip TRACE (Negative); Urobilinogen NORMAL mg/dL (0-1)
[2017-08-11 23:28] LABS: Bacteria MANY /HPF (NEGATIVE); Epithelial Cells MODERATE /HPF (FEW)
[2017-08-12 00:33] LABS: INFLUENZA A NEGATIVE (NEGATIVE)
[2017-08-12 00:34] LABS: INFLUENZA B POSITIVE (NEGATIVE); RESPIRATORY SYNCTIAL VIRUS NEGATIVE (Negative)
[2017-08-12] MEDS ORDERED: Levofloxacin 250MG Tablet PO ONE (00:37)
[2017-08-12] MEDS ORDERED: Levofloxacin 250MG Tablet ONE (00:43)
[2017-08-12 01:22] VITALS: BP 136/74; PULSE 87
--- NOTE | 2017-08-12 08:30 | XRAY ---
Indication: Cough. Comparison: June 03, 2015. Portable chest again hyperinflated and clear with a few incidental calcified granulomas. Heart and mediastinal structures within normal limits. Bony thorax intact again with minimal degenerative changes and minimal scoliosis. Impression: Stable nonacute hyperinflated chest with chronic features.
--- NOTE | 2017-08-12 08:32 | XRAY ---
Indication: Bilateral leg pain. Fever and flu. Two-dimensional sonogram and color Doppler imaging of the major venous vessels of the left and right leg was performed. Comparison: None No thrombus seen in the examined deep venous vessels of the left and right leg including greater saphenous veins. Veins demonstrate normal compressibility. Venous waveforms are normal with and without augmentation. Impression: Left and right legs negative for DVT. Comment: Preliminary report was given.
== END 2017-08-12 01:22 | disposition home or self-care (01) ==
LOC: ED 22:03
DX: J11.1 Influenza due to unidentified influenza virus with other respiratory manifestations (principal); J20.9 Acute bronchitis, unspecified; N39.0 Urinary tract infection, site not specified; M79.605 Pain in left leg; M79.604 Pain in right leg; Z79.899 Other long term (current) drug therapy
CPT/HCPCS: 71045; 81000; 87070; 87086; 87430; 87631; 93970; 99282; 99283; 99284; A9270-GY

== ENCOUNTER 2017-11-19 05:54 | Day surgery (SDC) | payer OTHER ==
[2017-11-19] MEDS ORDERED: Ketamine HCl 50 MG/ML IV ONE (05:55)
[2017-11-19] MEDS ORDERED: DIPRIVAN 200 MG/20 ML IV ONE (05:55)
[2017-11-19] MEDS ORDERED: Lactated Ringers 1,000 ML IV SCH (06:30)
--- NOTE | 2017-11-19 08:30 | OP ---
SURGERY DATE/TIME: 11/19/2017 0757 PREOPERATIVE DIAGNOSIS: Epigastric pain. POSTOPERATIVE DIAGNOSES: 1) Delayed gastric emptying. 2) Gastric polyps. 3) Gastritis. PROCEDURE: Esophagogastroduodenoscopy with biopsy. SURGEON: Dr. Gray. ANESTHESIA: Medications were given by the anesthesia department. BRIEF HISTORY: The patient is a 52 year-old white female presenting now for endoscopic evaluation. She has apparently been having problems with increasing abdominal pain. She has had upper and lower scopes performed previously with the last one being five years ago. The patient does not recall any significant pathology being noted at that time. She takes proton pump inhibitor medication and she also occasionally takes ibuprofen a couple times a week for pain. The patient was appraised of the risks of the procedure including the risk of perforation, phlebitis, untoward reaction to medication, bleeding and missed lesions. The patient verbalized her understanding and desired to have the procedure performed. DESCRIPTION OF PROCEDURE: The patient was given the medications by the anesthesia department. She had continuous pulse oximetry, ECG monitoring, intermittent blood pressure monitoring and tidal CO2 monitoring during the examination. She was placed in the left lateral decubitus position. A bite block was placed. A flexible Olympus gastroscope was used to intubate the oropharynx. A view of the larynx was obtained and was normal. The scope was easily introduced in the esophagus which appeared to be normal throughout its length. The stomach was entered where normal gastric rugal folds were seen and these distended nicely with insufflation of air. There was also noted a fair amount of retained gastric food stuffs. With insufflation we did note some gastric polyps that were benign in appearance. They were however biopsied to rule out any pathologic change otherwise. The scope was passed along the greater curvature of the stomach to the antrum. The pylorus was encountered and intubated. The duodenum inspected and found to be normal. The scope is withdrawn towards the stomach. A retroflex view was obtained of the lesser curvature, fundus and cardia regions of the stomach and no additional lesions were noted. The scope was then redirected towards the gastric antrum and biopsies were obtained to rule out the presence of Helicobacter pylori-type organisms. The scope was then removed from the patient who tolerated the procedure well and was sent back to the outpatient recovery in good condition.
[2017-11-19 08:40] VITALS: O2SAT 94
[2017-11-19 09:04] VITALS: PULSE 82
[2017-11-19 09:48] VITALS: BP 134/88
== END 2017-11-19 09:35 | disposition home or self-care (01) ==
LOC: SDC 05:54
PROVIDERS: ATTEND Family Medicine
DX: K30 Functional dyspepsia (principal); K31.7 Polyp of stomach and duodenum; K29.70 Gastritis, unspecified, without bleeding; R10.13 Epigastric pain; I10 Essential (primary) hypertension; M79.7 Fibromyalgia
CPT/HCPCS: 84703; 88305; J2704

== ENCOUNTER 2018-01-27 20:45 | Emergency (ER) | payer OTHER ==
--- NOTE | 2018-01-27 21:04 | ERPHSYRPT ---
- History of Present Illness Time Seen by Provider: 01/27/18 21:03 Source: patient Exam Limitations: no limitations Physician History: 52 y/o white female presents with rectal pain for 2 days. pt has h/o hemorrhoid but never had this type of pain in past. Severity: moderate Modifying Factors: Improves With: movement (worsen), other (sitting down worsen) Associated Symptoms: No nausea, No vomiting, No abdominal pain, No shortness of breath, No chest pain, No headaches, No loss of appetite, No syncope, No seizure , No weakness Allergies/Adverse Reactions: codeine [Codeine] Allergy (Mild, Verified 01/27/18 21:04) doxycycline Allergy (Mild, Verified 01/27/18 21:04) Penicillins Allergy (Mild, Verified 01/27/18 21:04) aspirin Allergy (Unknown, Verified 01/27/18 21:04) Difficulty Breathing Patient states she has a sensitivity to aspirin. Home Medications: Ipratropium/Albuterol Sulfate [Combivent Inhaler] 2 puff IH .PRN PRN 07/06/12 [ History] Lisinopril 10 mg [Zestril 10 MG] 10 mg PO BID 02/28/13 [History] Fluticasone/Salmeterol [Advair 250-50 Diskus] 2 puff IH BID 01/15/15 [History] Ipratropium/Albuterol Sulfate [Combivent Respimat Inhal [place]] 4 gm IH QID PRN 01/27/18 [History] Hx Tetanus, Diphtheria Vaccination/Date Given: No Hx Influenza Vaccination/Date Given: No Hx Pneumococcal Vaccination/Date Given: No - Review of Systems Constitutional: No Symptoms, No Fever, No Chills Eyes: No Symptoms, No Discharge, No Eye Pain Ears, Nose, & Throat: No Symptoms, No Ear Pain, No Ear Discharge Respiratory: No Symptoms, No Cough, No Dyspnea, No Stridor, No Wheezing Cardiac: No Symptoms, No Chest Pain, No Palpitations, No Syncope Abdominal/Gastrointestinal: No Symptoms, Other (external hemorhhoid), No Abdominal Pain, No Nausea, No Vomiting, No Diarrhea Genitourinary Symptoms: No Symptoms, No Dysuria, No Frequency, No Hematuria, No Flank Pain Musculoskeletal: No Symptoms, No Back Pain, No Fall, No Injury Skin: No Symptoms Neurological: No Symptoms, No Dizziness, No Headache Psychological: No Symptoms, No Alcohol Abuse, No Drug Abuse, No Anxiety Endocrine: No Symptoms Hematologic/Lymphatic: No Symptoms Immunological/Allergic: No Symptoms All Other Systems: Reviewed and Negative - Past Medical History Pertinent Past Medical History: Yes Neurological History: Peripheral Neuropathy ENT History: Other Cardiac History: Hypertension Respiratory History: Asthma Endocrine Medical History: Hypoglycemia Musculoskeletal History: Fibromyalgia GI Medical History: No Pertinent History, Other History: Other Psycho-Social History: No Pertinent History Female Reproductive Disorders: No Pertinent History Other Medical History: neuropathy. chronic fatigue. kidney failure. fibroid cyst in uterous 9 cm - Past Surgical History Past Surgical History: Yes Neuro Surgical History: No Pertinent History Cardiac: No Pertinent History Respiratory: No Pertinent History Gastrointestinal: Cholecystectomy Genitourinary: No Pertinent History Musculoskeletal: No Pertinent History Female Surgical History: Other Other Surgical History: sinus, d & c - Social History Smoking Status: Never smoker Exposure to second hand smoke: No Drug Use: none Patient Lives Alone: No Significant Family History: diabetes, hypertension - Nursing Vital Signs Nursing Vital Signs: Initial Vital Signs Pulse Rate 104 H 01/27/18 20:59 Respiratory Rate 18 01/27/18 20:59 Blood Pressure 123/65 01/27/18 20:59 O2 Sat by Pulse Oximetry 97 01/27/18 20:59 Pain Scale Pain Intensity 10 - Physical Exam General Appearance: mild distress, alert, anxiety Eye Exam: PERRL/EOMI, eyes nml inspection Ears, Nose, Throat Exam: normal ENT inspection, TMs normal, pharynx normal, moist mucous membranes Neck Exam: normal inspection, non-tender, supple, full range of motion Respiratory Exam: normal breath sounds, lungs clear, No respiratory distress Cardiovascular Exam: regular rate/rhythm, normal heart sounds, normal peripheral pulses Gastrointestinal/Abdomen Exam: soft, normal bowel sounds, other (post midline thrombosed ext hemorrhoid, tender), No tenderness, No mass Pelvic Exam: not done Rectal Exam: hemorrhoids Back Exam: normal inspection, normal range of motion, No CVA tenderness, No vertebral tenderness Extremity Exam: normal inspection, normal range of motion, pelvis stable Neurologic Exam: alert, oriented x 3, cooperative, normal mood/affect, nml cerebellar function, nml station & gait, sensation nml, No motor deficits Skin Exam: normal color, warm, dry, No rash Lymphatic Exam: No adenopathy Procedures - Additional Procedures Progress: after placement of emla cream topically directly on thrombosed hemorrhoid, i allowed it to remain in place for 20 minutes. after 20 minutes, i made an elliptical incision about the thrombosed hemorrhoid. clot was removed. peripad placed. pt yennifer well. no complications - Course Nursing assessment & vital signs reviewed: Yes Ordered Tests: Medication Summary Generic Name Dose Route Start Last Admin Trade Name Freq PRN Reason Stop Dose Admin Hydromorphone HCl 1 mg 01/27/18 22:04 Hydromorphone 1 Mg/Ml Ampule IM 01/27/18 22:05 STAT ONE Ondansetron HCl 4 mg 01/27/18 22:04 Zofran Odt 4 Mg PO 01/27/18 22:05 STAT ONE Discontinued Medications Generic Name Dose Route Start Last Admin Trade Name Freq PRN Reason Stop Dose Admin Lidocaine/Prilocaine Confirm 01/27/18 21:09 Emla Cream 5 Gm Administered 01/27/18 21:10 Dose 5 gm TP .STK-MED ONE Lidocaine/Prilocaine 2.5 gm 01/27/18 21:11 01/27/18 21:14 Emla Cream 5 Gm TP 01/27/18 21:12 2.5 gm STAT ONE Administration - Progress Progress: improved, pain not gone completely Progress Note: 01/27/18 22:07 pt states she will take a narcotic shot now but only wants tramadol rx for home - Departure Time of Disposition: 22:05 Departure Disposition: Home Clinical Impression: Thrombosed external hemorrhoid Condition: Stable Critical Care Time: No Referrals: BETH KENT [Primary Care Provider] - Additional Instructions: sitz bath 3 times daily for 2 days. expect some bleeding but should decrease with times. Prescriptions: Tramadol HCl 50 mg [Ultram 50 mg] 50 mg PO TID PRN #15 tablet PRN Reason: Pain
[2018-01-27] MEDS ORDERED: EMLA Cream 5 GM TP ONE ×2 (21:09→21:11)
[2018-01-27] MEDS ORDERED: Hydromorphone 1 mg/ml Ampule IM ONE (22:04)
[2018-01-27] MEDS ORDERED: ZOFRAN ODT 4 MG PO ONE (22:04)
[2018-01-27] MEDS ORDERED: ZOFRAN ODT 4 MG ONE (22:07)
[2018-01-27] MEDS ORDERED: Hydromorphone 1 mg/ml Ampule ONE (22:07)
[2018-01-27 22:36] VITALS: BP 100/54; PULSE 98; O2SAT 96
== END 2018-01-27 22:30 | disposition home or self-care (01) ==
LOC: ED 20:45
DX: K64.5 Perianal venous thrombosis (principal); G62.9 Polyneuropathy, unspecified; I10 Essential (primary) hypertension; J45.909 Unspecified asthma, uncomplicated; M79.7 Fibromyalgia
CPT/HCPCS: 96372; 99284; J1170; Q0162; A9270-GY

== ENCOUNTER 2018-02-07 19:39 | Emergency (ER) | payer OTHER ==
[2018-02-07] MEDS ORDERED: DUONEB 0.5-3 MG/3 ml Neb IH ONE (19:45)
[2018-02-07] MEDS ORDERED: solu-MEDROL 125 MG IV ONE (19:55)
[2018-02-07] MEDS ORDERED: Sodium Chloride 0.9% 1000 ML 1,000 ML IV SCH (20:00)
--- NOTE | 2018-02-07 20:01 | ERPHSYRPT ---
- History of Present Illness Time Seen by Provider: 02/07/18 19:57 Source: patient Exam Limitations: no limitations Physician History: This is a 52-year-old white female with history of asthma, peripheral neuropathy , high blood pressure, hypoglycemia, fibromyalgia, neuropathy, chronic fatigue, kidney failure, fibroids She arrives with complaint of shortness of breath symptoms for several hours she states she tried taking a DuoNeb treatment at home however did not help she arrives complaining of shortness of breath. She has no fevers she does feel tight in her chest with breathing. She has no vomiting no nausea. Past medical history includes peripheral neuropathy, high blood pressure, asthma , hypoglycemia, fibromyalgia, neuropathy, chronic fatigue, kidney failure, fibroids, Past surgical history includes cholecystectomy, sinus surgery, D&C Social history patient denies tobacco alcohol or illicit drug use Timing/Duration: today (symptoms for 2-3 hours) Severity: moderate Modifying Factors: Improves With: medication (patient took a DuoNeb treatment at home) Associated Symptoms: shortness of breath, chest pain (Chest feels tight with breathing), fever, No nausea, No vomiting, No abdominal pain, No heartburn, No diaphoresis, No cough, No chills, No headaches, No loss of appetite, No malaise , No rash, No syncope, No seizure, No weakness Allergies/Adverse Reactions: codeine [Codeine] Allergy (Mild, Verified 01/27/18 21:04) doxycycline Allergy (Mild, Verified 01/27/18 21:04) Penicillins Allergy (Mild, Verified 01/27/18 21:04) aspirin Allergy (Unknown, Verified 01/27/18 21:04) Difficulty Breathing Patient states she has a sensitivity to aspirin. Home Medications: Ipratropium/Albuterol Sulfate [Combivent Inhaler] 2 puff IH .PRN PRN 07/06/12 [ History] Lisinopril 10 mg [Zestril 10 MG] 10 mg PO BID 02/28/13 [History] Fluticasone/Salmeterol [Advair 250-50 Diskus] 2 puff IH BID 01/15/15 [History] Ipratropium/Albuterol Sulfate [Combivent Respimat Inhal [place]] 4 gm IH QID PRN 01/27/18 [History] Tramadol HCl 50 mg [Ultram 50 mg] 50 mg PO DAILY PRN 02/07/18 [History] Hx Tetanus, Diphtheria Vaccination/Date Given: No Hx Influenza Vaccination/Date Given: No Hx Pneumococcal Vaccination/Date Given: No - Review of Systems Constitutional: No Fever, No Chills Eyes: No Symptoms Ears, Nose, & Throat: No Symptoms Respiratory: Dyspnea, Wheezing Cardiac: Chest Pain (chest feels tight with breathing), No Edema, No Syncope Abdominal/Gastrointestinal: No Abdominal Pain, No Nausea, No Vomiting, No Diarrhea Genitourinary Symptoms: No Dysuria Musculoskeletal: No Back Pain, No Neck Pain Skin: No Rash Neurological: No Dizziness, No Focal Weakness, No Sensory Changes Psychological: No Symptoms Endocrine: No Symptoms All Other Systems: Reviewed and Negative - Past Medical History Pertinent Past Medical History: Yes Neurological History: Peripheral Neuropathy ENT History: Other Cardiac History: Hypertension Respiratory History: Asthma Endocrine Medical History: Hypoglycemia Musculoskeletal History: Fibromyalgia GI Medical History: No Pertinent History, Other History: Other Psycho-Social History: No Pertinent History Female Reproductive Disorders: No Pertinent History Other Medical History: neuropathy. chronic fatigue. kidney failure. fibroid cyst in uterous 9 cm - Past Surgical History Past Surgical History: Yes Neuro Surgical History: No Pertinent History Cardiac: No Pertinent History Respiratory: No Pertinent History Gastrointestinal: Cholecystectomy Genitourinary: No Pertinent History Musculoskeletal: No Pertinent History Female Surgical History: Other Other Surgical History: sinus, d & c - Social History Smoking Status: Never smoker Exposure to second hand smoke: No Drug Use: none Patient Lives Alone: No Significant Family History: diabetes, hypertension - Nursing Vital Signs Nursing Vital Signs: Initial Vital Signs Temperature 99.1 F 02/07/18 19:40 Pulse Rate 101 H 02/07/18 19:40 Respiratory Rate 20 02/07/18 19:40 Blood Pressure 101/72 02/07/18 19:40 O2 Sat by Pulse Oximetry 92 L 02/07/18 19:40 Pain Scale Pain Intensity 5 - Physical Exam General Appearance: mild distress Eye Exam: PERRL/EOMI, eyes nml inspection Ears, Nose, Throat Exam: normal ENT inspection, TMs normal, pharynx normal, moist mucous membranes Neck Exam: normal inspection, non-tender, supple, full range of motion Respiratory Exam: wheezing, other (patient short of breath on arrival feeling better after breathing treatment), No chest tenderness, No lungs clear Cardiovascular Exam: regular rate/rhythm, normal heart sounds, normal peripheral pulses Gastrointestinal/Abdomen Exam: soft, normal bowel sounds, No tenderness, No mass Back Exam: normal inspection, normal range of motion, No CVA tenderness, No vertebral tenderness Extremity Exam: normal inspection, normal range of motion, pelvis stable Neurologic Exam: alert, oriented x 3, cooperative, fur blower II-XII nml as tested, normal mood/affect, nml cerebellar function, nml station & gait, sensation nml, No motor deficits Skin Exam: normal color, warm, dry, No rash Lymphatic Exam: No adenopathy SpO2 Interpretation: normal (92%) SpO2: 92 Oxygen Delivery: Room Air - Course Nursing assessment & vital signs reviewed: Yes EKG Interpreted by Me: RATE (103 bpm), Sinus Tach, NORMAL AXIS, Other (EKG: Sinus tachycardia 103 beats per minute, normal axis, no acute ST or T wave changes, compared to October 27, 2015 ) - Radiology Exams Chest X-ray Interpretation: Interpreted by me (no acute disease process) Ordered Tests: Active Orders 24 hr Category Date Time Status [place] Hand STAT Care 02/07/18 19:56 Active EKG-ER Only STAT Care 02/07/18 19:55 Active IV Insertion STAT Care 02/07/18 19:55 Active Pulse Oximetry (ED) STAT Care 02/07/18 19:55 Active CHEST 1 VIEW (PORTABLE) Stat Exams 02/07/18 19:55 Taken CBC W DIFF Stat Lab 02/07/18 20:48 Completed CMP Stat Lab 02/07/18 20:48 Completed HCG QUALITATIVE,SERUM Stat Lab 02/07/18 20:48 Completed TROPONIN Q3H Lab 02/07/18 20:48 Completed TROPONIN Q3H Lab 02/07/18 23:00 Ordered TROPONIN Q3H Lab 02/08/18 02:00 Ordered TROPONIN Q3H Lab 02/08/18 05:00 Ordered TROPONIN Q3H Lab 02/08/18 08:00 Ordered VENOUS BLOOD GAS Stat Lab 02/07/18 20:48 Completed Peak Expiratory Flow Rate ONCE RT 02/07/18 19:49 Active Respiratory Therapy Assessment DAILY RT 02/07/18 19:49 Active Medication Summary Generic Name Dose Route Start Last Admin Trade Name Freq PRN Reason Stop Dose Admin Sodium Chloride 1,000 mls @ 100 mls/hr 02/07/18 20:00 02/07/18 20:57 Sodium Chloride 0.9% 1000 Ml IV 03/09/18 19:59 100 mls/hr .Q10H CECELIA Administration Discontinued Medications Generic Name Dose Route Start Last Admin Trade Name Sahil PRN Reason Stop Dose Admin Albuterol/Ipratropium 3 ml 02/07/18 19:45 02/07/18 19:46 Duoneb 0.5-3 Mg/3 Ml Neb IH 02/07/18 19:46 3 ml STAT ONE Administration Azithromycin 500 mg 02/07/18 21:59 Zithromax 250 Mg Tablet PO 02/07/18 22:00 STAT ONE Methylprednisolone Sodium Succinate 125 mg 02/07/18 19:55 02/07/18 20:57 Solu-Medrol 125 Mg IV 02/07/18 19:56 125 mg STAT ONE Administration Methylprednisolone Sodium Succinate Confirm 02/07/18 20:50 Solu-Medrol 125 Mg Administered 02/07/18 20:51 Dose 125 mg .ROUTE .STK-MED ONE Lab/Rad Data: Laboratory Result Diagrams 02/07/18 20:48 02/07/18 20:48 Laboratory Results 02/07/18 02/07/18 02/07/18 Range/Units 20:48 20:48 20:48 WBC (4.0-10.5) K/mm3 RBC (4.1-5.4) M/mm3 Hgb (12.0-16.0) gm/dl Hct (35-47) % MCV (78-100) fl MCH (26-32) pg MCHC (32-36) g/dl RDW (11.5-14.0) % Plt Count (150-450) K/mm3 MPV (6-9.5) fl Gran % (36.0-66.0) % Eos # (Auto) (0-0.5) Absolute Lymphs (auto) (1.0-4.6) Absolute Monos (auto) (0.0-1.3) Lymphocytes % (24.0-44.0) % Monocytes % (0.0-12.0) % Eosinophils % (0.00-5.0) % Basophils % (0.0-0.4) % Absolute Granulocytes (1.4-6.9) Basophils # (0-0.4) pO2/FiO2 Ratio % VBG pH (7.32-7.42) VBG pCO2 at Pat Temp (42-55) mm/Hg VBG pO2 at Pat Temp (25-40) mm/Hg VBG HCO3 (22-28) meq/L VBG O2 Sat (Ritesh) (95-100) VBG Base Excess (-2.0-2.0) VBG Hemoglobin VBG Carboxyhemoglobin (0.0-6.9) % T HGB POC Potassium (3.5-5.1) Sodium 141 (137-145) mmol/L Potassium 4.1 (3.5-5.1) mmol/L Chloride 105 (98-107) mmol/L Carbon Dioxide 23 (22-30) mmol/L Anion Gap 16.4 H (5-15) MEQ/L BUN 20 H (7-17) mg/dL Creatinine 0.65 (0.52-1.04) mg/dL Estimated GFR > 60.0 ML/MIN Glucose 118 H (74-106) mg/dL Calcium 10.1 (8.4-10.2) mg/dL Total Bilirubin 0.30 (0.2-1.3) mg/dL AST 22 (14-36) U/L ALT 31 (0-35) U/L Alkaline Phosphatase 90 (38-126) U/L Troponin I < 0.012 (0.000-0.034) ng/mL Serum Total Protein 7.5 (6.3-8.2) g/dL Albumin 4.6 (3.5-5.0) g/dL Serum , Qual NEGATIVE (Negative) 02/07/18 02/07/18 Range/Units 20:48 20:48 WBC 9.6 (4.0-10.5) K/mm3 RBC 4.77 (4.1-5.4) M/mm3 Hgb 14.3 (12.0-16.0) gm/dl Hct 43.2 (35-47) % MCV 90.6 (78-100) fl MCH 30.0 (26-32) pg MCHC 33.1 (32-36) g/dl RDW 15.2 H (11.5-14.0) % Plt Count 305 (150-450) K/mm3 MPV 8.9 (6-9.5) fl Gran % 62.8 (36.0-66.0) % Eos # (Auto) 0.17 (0-0.5) Absolute Lymphs (auto) 2.57 (1.0-4.6) Absolute Monos (auto) 0.82 (0.0-1.3) Lymphocytes % 26.7 (24.0-44.0) % Monocytes % 8.5 (0.0-12.0) % Eosinophils % 1.8 (0.00-5.0) % Basophils % 0.2 (0.0-0.4) % Absolute Granulocytes 6.05 (1.4-6.9) Basophils # 0.02 (0-0.4) pO2/FiO2 Ratio 28.0 % VBG pH 7.43 H (7.32-7.42) VBG pCO2 at Pat Temp 38 L (42-55) mm/Hg VBG pO2 at Pat Temp 42 H (25-40) mm/Hg VBG HCO3 25.2 (22-28) meq/L VBG O2 Sat (Ritesh) 83.0 L (95-100) VBG Base Excess 1.0 (-2.0-2.0) VBG Hemoglobin 14.3 VBG Carboxyhemoglobin 2.3 (0.0-6.9) % T HGB POC Potassium 4.0 (3.5-5.1) Sodium (137-145) mmol/L Potassium (3.5-5.1) mmol/L Chloride (98-107) mmol/L Carbon Dioxide (22-30) mmol/L Anion Gap (5-15) MEQ/L BUN (7-17) mg/dL Creatinine (0.52-1.04) mg/dL Estimated GFR ML/MIN Glucose (74-106) mg/dL Calcium (8.4-10.2) mg/dL Total Bilirubin (0.2-1.3) mg/dL AST (14-36) U/L ALT (0-35) U/L Alkaline Phosphatase (38-126) U/L Troponin I (0.000-0.034) ng/mL Serum Total Protein (6.3-8.2) g/dL Albumin (3.5-5.0) g/dL Serum , Qual (Negative) - Progress Progress: improved Progress Note: 02/07/18 21:56 52-year-old white female with history of asthma arrives with complaint of shortness of breath wheezing and chest tightness symptoms since 2-1/2 hours prior to arrival. Patient had received a DuoNeb treatment upon arrival she still had some scattered wheezes on examination. She has been given Solu-Medrol 125 mg IV. Patient's CBC CMP troponin and chest x-ray all within normal limits EKG sinus tachycardia 103 beats for minute no acute ST or T wave changes noted no acute changes from prior EKG. Patient is feeling much better lungs are clear. Will discharge patient with tapering dose of prednisone and Zithromax she has albuterol/Atrovent at home. - Departure Time of Disposition: 21:58 Departure Disposition: Home Clinical Impression: Shortness of breath Asthma with exacerbation Qualifiers: Asthma severity: moderate Asthma persistence: unspecified Qualified Code(s): J45.901 - Unspecified asthma with (acute) exacerbation Condition: Fair Critical Care Time: No Referrals: BETH KENT [Primary Care Provider] - Instructions: Asthma, Adult (DC) Additional Instructions: Return home. Plenty of fluids. Use your albuterol/Atrovent inhaler every 4-6 hours as needed. Tapering dose of prednisone as directed. Zithromax as directed. Follow-up with your family symptoms are worse no better in 48 hours or persist longer than one week. Return for acute distress or for severe symptoms.
[2018-02-07] MEDS ORDERED: Sodium Chloride 0.9% 1000 ML 1,000 ML ONE (20:50)
[2018-02-07] MEDS ORDERED: solu-MEDROL 125 MG ONE (20:50)
[2018-02-07 20:51] LABS: BASOPHIL % 0.2 % (0.0-0.4); Basophil (Absolute #) 0.02 (0-0.4); Eosinophil % 1.8 % (0.00-5.0); Eosinophil (Absolute #) 0.17 (0-0.5); Granulocyte Absolute (ANC) 6.05 (1.4-6.9); Granulocytes % 62.8 % (36.0-66.0); Hematocrit 43.2 % (35-47); Hemoglobin 14.3 gm/dl (12.0-16.0); Lymphocyte (Absolute #) 2.57 (1.0-4.6); Lymphocytes % 26.7 % (24.0-44.0); Mean Cell Volume 90.6 fl (78-100); Mean Corpuscular Hgb Concent. 33.1 g/dl (32-36); Mean Platelet Volume 8.9 fl (6-9.5); Monocyte (Absolute #) 0.82 (0.0-1.3); Monocytes % 8.5 % (0.0-12.0); Platelet Count 305 K/mm3 (150-450); Red Blood Count 4.77 M/mm3 (4.1-5.4); Red Cell Distribution Width 15.2 % (11.5-14.0); White Blood Count 9.6 K/mm3 (4.0-10.5)
[2018-02-07 20:52] LABS: VBG CARBOXYHEMOGLOBIN 2.3 % T HGB (0.0-6.9); VBG HCO3- 25.2 meq/L (22-28); VBG HEMOGLOBIN 14.3; VBG pH 7.43 (7.32-7.42)
[2018-02-07 21:06] LABS: ALBUMIN 4.6 g/dL (3.5-5.0); ALKALINE PHOSPHATASE 90 U/L (38-126); ANION GAP 16.4 MEQ/L (5-15); BLOOD UREA NITROGEN 20 mg/dL (7-17); CHLORIDE 105 mmol/L (98-107); Calcium 10.1 mg/dL (8.4-10.2); Carbon Dioxide 23 mmol/L (22-30); Creatinine 1 0.65 mg/dL (0.52-1.04); Glucose 118 mg/dL (74-106); Potassium 4.1 mmol/L (3.5-5.1); SGOT/AST 22 U/L (14-36); SGPT/ALT 31 U/L (0-35); SODIUM 141 mmol/L (137-145); Total Protein 7.5 g/dL (6.3-8.2)
[2018-02-07 21:28] VITALS: BP 121/58; PULSE 96
[2018-02-07 21:54] VITALS: O2SAT 92
[2018-02-07] MEDS ORDERED: Zithromax 250 MG TABLET PO ONE (21:59)
[2018-02-07] MEDS ORDERED: Zithromax 250 MG TABLET ONE (22:02)
--- NOTE | 2018-02-08 08:49 | XRAY ---
Indication: Asthma attack. Comparison: August 12, 2017. Portable chest again demonstrates normal heart and lungs with a few incidental calcified granulomas. Bony thorax intact again with mild degenerative changes and minimal scoliosis. No new/acute findings.
== END 2018-02-07 22:24 | disposition home or self-care (01) ==
LOC: ED 19:39
DX: J45.901 Unspecified asthma with (acute) exacerbation (principal); G62.9 Polyneuropathy, unspecified; I10 Essential (primary) hypertension; M79.7 Fibromyalgia; E16.2 Hypoglycemia, unspecified; Z79.899 Other long term (current) drug therapy
CPT/HCPCS: 36000; 36415; 71045; 80053; 82805; 84484; 84703; 85025; 93005; 93041; 94150; 94640; 96365; 96374; 99284; J2930; A9270-GY

== ENCOUNTER 2018-05-07 19:59 | Emergency (ER) | payer OTHER ==
[2018-05-07] MEDS ORDERED: Norco 10/325 MG Tablet PO ONE (20:30)
--- NOTE | 2018-05-07 20:41 | ERPHSYRPT ---
- History of Present Illness Time Seen by Provider: 05/07/18 20:15 Source: patient Exam Limitations: clinical condition Patient Subjective Stated Complaint: pt states she fell on a slick ramp yesterday and twisted her lt arm behind her, hurting her lt shoulder and her lt back. states pain has been increasing today Triage Nursing Assessment: pt alert and oriented, asnwers questions approp. pt ambulatoryw ith steady gait noted. respirations nonlabore d with lungs cta. radial pulse, cap refill, and sensation wnl to lt arm. mild tenderness noted to lt upper back. no bruising or abrasions noted. Physician History: PATIENT WITH A HISTORY OF ASTHMA AND FIBROMYALGIA FELL YESTERDAY AND SUSTAINED INJURY TO HER LEFT SHOULDER, SHOULDER BLADE, ELBOW AND FOREARM. DENIES ASSOCIATED HEAD NECK OR BACK INJURY. DENIES DEFORMITY OR BRUISING Occurred: yesterday Method of Injury: direct blow Quality: constant Severity of Pain-Max: moderate Severity of Pain-Current: moderate Extremities Pain Location: shoulder: left, elbow: left, forearm: left Modifying Factors: Improves With: movement Associated Symptoms: none Allergies/Adverse Reactions: codeine [Codeine] Allergy (Mild, Verified 05/07/18 20:15) doxycycline Allergy (Mild, Verified 05/07/18 20:15) Penicillins Allergy (Mild, Verified 05/07/18 20:15) aspirin Allergy (Unknown, Verified 05/07/18 20:15) Difficulty Breathing Patient states she has a sensitivity to aspirin. Home Medications: Ipratropium/Albuterol Sulfate [Combivent Inhaler] 2 puff IH .PRN PRN 07/06/12 [ History] Lisinopril 10 mg [Zestril 10 MG] 10 mg PO BID 02/28/13 [History] Fluticasone/Salmeterol [Advair 250-50 Diskus] 2 puff IH BID 01/15/15 [History] Ipratropium/Albuterol Sulfate [Combivent Respimat Inhal [place]] 4 gm IH QID PRN 01/27/18 [History] Hx Tetanus, Diphtheria Vaccination/Date Given: No Hx Influenza Vaccination/Date Given: No Hx Pneumococcal Vaccination/Date Given: No Immunizations Up to Date: No - Review of Systems Constitutional: No Fever, No Chills Musculoskeletal: Injury, Joint Pain, Joint Swelling Neurological: No Dizziness, No Focal Weakness, No Sensory Changes Psychological: No Symptoms - Past Medical History Pertinent Past Medical History: Yes Neurological History: Peripheral Neuropathy ENT History: Other Cardiac History: Hypertension Respiratory History: Asthma Endocrine Medical History: Hypoglycemia Musculoskeletal History: Fibromyalgia GI Medical History: No Pertinent History, Other History: Other Psycho-Social History: No Pertinent History Female Reproductive Disorders: No Pertinent History Other Medical History: neuropathy. chronic fatigue. kidney failure. fibroid cyst in uterous 9 cm - Past Surgical History Past Surgical History: Yes Neuro Surgical History: No Pertinent History Cardiac: No Pertinent History Respiratory: No Pertinent History Gastrointestinal: Cholecystectomy Genitourinary: No Pertinent History Musculoskeletal: No Pertinent History Female Surgical History: Other Other Surgical History: sinus, d & c - Social History Smoking Status: Never smoker Exposure to second hand smoke: Yes Drug Use: none Patient Lives Alone: No Significant Family History: diabetes, hypertension - Female History Hx Last Menstrual Period: december Hx Now: No - Nursing Vital Signs Nursing Vital Signs: Initial Vital Signs Temperature 98.3 F 05/07/18 20:06 Pulse Rate 96 H 05/07/18 20:06 Respiratory Rate 18 05/07/18 20:06 Blood Pressure 107/75 05/07/18 20:06 O2 Sat by Pulse Oximetry 94 L 05/07/18 20:06 Pain Scale Pain Intensity 7 - Physical Exam General Appearance: alert Neck Exam: normal inspection, non-tender, supple Cardiovascular/Respiratory Exam: chest non-tender, normal breath sounds, regular rate/rhythm, no respiratory distress Back Exam: normal inspection, No vertebral tenderness Shoulder Exam: normal inspection, soft tissue tenderness (THERE IS FULL RANGE OF MOTION, NO SWELLING, CREPITUS, OR DEFORMITY, TENDERNESS OVER LEFT MID SCAPULA, NO SWELLING OR ECCHYMOSIS, LEFT ELBOW WITH TENDERNESS OVER LATERAL EPICONDYLE, NO SWELLING OR CREPITUS OR ECCHYMOSIS, LEFT FOREARM SWELLING PROXIMAL TO MID ASPECT, NO CREPITUS OR ECCHYMOSIS, LEFT RADIAL PULSE 2+) SpO2: 94 Oxygen Delivery: Room Air - Radiology Exams Left Shoulder X-ray Interpretation: Interpreted by me, Negative, No Fracture (NO DISLOCATION) Left Elbow X-ray Interpretation: Interpreted by me, Negative, No Fracture (NO DISLOCATION) Left Forearm X-ray Interpretation: Interpreted by me, Negative, No Fracture Ordered Tests: Active Orders 24 hr Category Date Time Status Sling Application STAT Care 05/07/18 21:42 Ordered ELBOW (MINIMUM 3 VIEWS) Stat Exams 05/07/18 20:33 Taken FOREARM Stat Exams 05/07/18 20:33 Taken SHOULDER Stat Exams 05/07/18 20:31 Taken Medication Summary Discontinued Medications Generic Name Dose Route Start Last Admin Trade Name Freq PRN Reason Stop Dose Admin Hydrocodone Bitart/Acetaminophen 1 tab 05/07/18 20:30 05/07/18 21:17 [place] 10/325 Mg Tablet PO 05/07/18 20:31 1 tab STAT ONE Administration Hydrocodone Bitart/Acetaminophen Confirm 05/07/18 20:51 [place] 10/325 Mg Tablet Administered 05/07/18 20:52 Dose 1 tab .ROUTE .STK-MED ONE - Progress Progress Note: 05/07/18 21:44 [place] 10/325 [place], APPLICATION LEFT FOREARM Counseled pt/family regarding: diagnosis, need for follow-up, rad results - Departure Time of Disposition: 21:50 Departure Disposition: Home Clinical Impression: CONTUSION/STRAIN LEFT SHOULDER/ELBOW, CONTUSION LEFT FOREARM Condition: Stable Critical Care Time: No Referrals: BETH KENT [Primary Care Provider] - Additional Instructions: WEAR LEFT ARM SLING FOR COMFORT. APPLY ICE OVER FOREARM SWELLING EVERY 4 HOURS, 30 MINUTES FOR 48 HOURS. ULTRAM 50MG EVERY 6 HOURS FOR PAIN. CONSULT YOUR PRIMARY CARE PROVIDER FOR EVALUATION IN 1 WEEK. Prescriptions: Tramadol HCl 50 mg [Ultram 50 mg] 50 mg PO Q6H PRN PRN #15 tablet PRN Reason: Pain
[2018-05-07] MEDS ORDERED: Norco 10/325 MG Tablet ONE (20:51)
[2018-05-07 22:06] VITALS: BP 120/78; PULSE 92; O2SAT 98
--- NOTE | 2018-05-08 08:53 | XRAY ---
Indication: Pain following fall. Comparison: None 2 views of the left forearm obtained. No bony, articular, or soft tissue abnormalities.
--- NOTE | 2018-05-08 08:53 | XRAY ---
Indication: Pain following fall. Comparison: July 09, 2017. 3 views of the left shoulder demonstrates minimal AC degenerative arthropathy, mild thoracic dextroscoliosis, mediastinal calcified nodes, and left lung base subsegmental atelectasis/scarring. No other bony, articular, or soft tissue abnormalities.
--- NOTE | 2018-05-08 08:53 | XRAY ---
Indication: Pain following fall. Comparison: None 3 views of the left elbow obtained. No bony, articular, or soft tissue abnormalities.
== END 2018-05-07 22:14 | disposition home or self-care (01) ==
LOC: ED 19:59
DX: S50.02XA Contusion of left elbow, initial encounter (principal); S50.12XA Contusion of left forearm, initial encounter; S46.912A Strain of unspecified muscle, fascia and tendon at shoulder and upper arm level, left arm, initial encounter; S56.812A Strain of other muscles, fascia and tendons at forearm level, left arm, initial encounter; W01.0XXA Fall on same level from slipping, tripping and stumbling without subsequent striking against object, initial encounter; X50.1XXA Overexertion from prolonged static or awkward postures, initial encounter; M79.7 Fibromyalgia; J45.909 Unspecified asthma, uncomplicated; Z79.899 Other long term (current) drug therapy; G62.9 Polyneuropathy, unspecified; I10 Essential (primary) hypertension
CPT/HCPCS: 73030; 73080; 73090; 99284; A9270-GY

== ENCOUNTER 2018-05-29 22:10 | Emergency (ER) | payer OTHER ==
[2018-05-29] MEDS ORDERED: Norco 10/325 MG Tablet PO ONE (22:25)
[2018-05-29] MEDS ORDERED: Norco 10/325 MG Tablet ONE (22:34)
--- NOTE | 2018-05-29 23:04 | ERPHSYRPT ---
- History of Present Illness Time Seen by Provider: 05/29/18 22:35 Source: patient Exam Limitations: clinical condition Patient Subjective Stated Complaint: pt is alert and oriented. pt comes in via wheelchair. pt states that she kicked an 8lb weight with her left foot and her 3rd, 4th, and 5th toes are hurting. no obvious deformity, no brusing, no redness noted. pt states her pain is a a10/10. Triage Nursing Assessment: see above Physician History: PATIENT ACCIDENTLY KICKED A WEIGHT WITH LEFT FOOT SUSTAINED INJURY TO LEFT 3RD AND 5TH TOES. DENIES DEFORMITY OR BRUISING AND HAS PAIN UPON WEIGHT BEARING. Method of Injury: direct blow Occurred: just prior to arrival Quality: constant, throbbing Severity of Pain-Max: moderate Severity of Pain-Current: moderate Lower Extremities Pain: 3rd toe: left, 4th toe: left, 5th toe: left Modifying Factors: Improves With: movement Associated Symptoms: unable to bear weight Allergies/Adverse Reactions: codeine [Codeine] Allergy (Mild, Verified 05/07/18 20:15) doxycycline Allergy (Mild, Verified 05/07/18 20:15) Penicillins Allergy (Mild, Verified 05/07/18 20:15) aspirin Allergy (Unknown, Verified 05/07/18 20:15) Difficulty Breathing Patient states she has a sensitivity to aspirin. Home Medications: Ipratropium/Albuterol Sulfate [Combivent Inhaler] 2 puff IH .PRN PRN 07/06/12 [ History] Lisinopril 10 mg [Zestril 10 MG] 10 mg PO BID 02/28/13 [History] Fluticasone/Salmeterol [Advair 250-50 Diskus] 2 puff IH BID 01/15/15 [History] Ipratropium/Albuterol Sulfate [Combivent Respimat Inhal [place]] 4 gm IH QID PRN 01/27/18 [History] Hx Tetanus, Diphtheria Vaccination/Date Given: No Hx Influenza Vaccination/Date Given: No Hx Pneumococcal Vaccination/Date Given: No Immunizations Up to Date: Yes - Review of Systems Constitutional: No Fever, No Chills Eyes: No Symptoms Ears, Nose, & Throat: No Symptoms Respiratory: No Cough, No Dyspnea Cardiac: No Chest Pain, No Edema, No Syncope Abdominal/Gastrointestinal: No Abdominal Pain, No Nausea, No Vomiting, No Diarrhea Genitourinary Symptoms: No Dysuria Musculoskeletal: Injury, Joint Pain, No Back Pain, No Neck Pain Skin: No Rash Neurological: No Dizziness, No Focal Weakness, No Sensory Changes Psychological: No Symptoms Endocrine: No Symptoms All Other Systems: Reviewed and Negative - Past Medical History Pertinent Past Medical History: Yes Neurological History: Peripheral Neuropathy ENT History: Other Cardiac History: Hypertension Respiratory History: Asthma Endocrine Medical History: Hypoglycemia Musculoskeletal History: Fibromyalgia GI Medical History: No Pertinent History, Other History: Other Psycho-Social History: No Pertinent History Female Reproductive Disorders: No Pertinent History Other Medical History: neuropathy. chronic fatigue. kidney failure. fibroid cyst in uterous 9 cm - Past Surgical History Past Surgical History: Yes Neuro Surgical History: No Pertinent History Cardiac: No Pertinent History Respiratory: No Pertinent History Gastrointestinal: Cholecystectomy Genitourinary: No Pertinent History Musculoskeletal: No Pertinent History Female Surgical History: Other Other Surgical History: sinus, d & c - Social History Smoking Status: Never smoker Exposure to second hand smoke: No Drug Use: none Patient Lives Alone: No Significant Family History: diabetes, hypertension - Female History Hx Now: No - Nursing Vital Signs Nursing Vital Signs: Initial Vital Signs Temperature 98.3 F 05/29/18 22:22 Pulse Rate 96 H 05/29/18 22:22 Respiratory Rate 20 05/29/18 22:22 Blood Pressure 129/74 05/29/18 22:22 O2 Sat by Pulse Oximetry 95 05/29/18 22:22 Pain Scale Pain Intensity 10 - Physical Exam General Appearance: no apparent distress Foot Exam: left foot: pain (TENDERNESS LEFT PROXIMAL PHALANGES 3RD, 4TH AND 5TH DIGITS), soft tissue tenderness Neuro/Tendon Exam: normal sensation Mental Status Exam: alert, oriented x 3 SpO2 Interpretation: normal SpO2: 95 Ordered Tests: Active Orders 24 hr Category Date Time Status Cold Application STAT Care 05/29/18 22:22 Active FOOT (MINIMUM 3 VIEWS) Stat Exams 05/29/18 22:24 Taken Medication Summary Discontinued Medications Generic Name Dose Route Start Last Admin Trade Name Freq PRN Reason Stop Dose Admin Hydrocodone Bitart/Acetaminophen 1 tab 05/29/18 22:25 05/29/18 22:36 Orick 10/325 Mg Tablet PO 05/29/18 22:26 1 tab STAT ONE Administration Hydrocodone Bitart/Acetaminophen Confirm 05/29/18 22:34 Orick 10/325 Mg Tablet Administered 05/29/18 22:35 Dose 1 tab .ROUTE .STK-MED ONE - Progress Progress: pain not gone completely Progress Note: 05/29/18 23:00 CRUTCHES APPLICATION Counseled pt/family regarding: diagnosis, need for follow-up - Departure Time of Disposition: 23:10 Departure Disposition: Home Clinical Impression: CONTUSION LEFT 3RD/4TH/5TH TOES Condition: Stable Critical Care Time: No Referrals: BETH KENT [Primary Care Provider] - Additional Instructions: AMBULATE USING CRUTCHES NONWEIGHT BEARING LEFT FOOT FOR 5 DAYS. ULTRAM 50MG EVERY 6 HOURS FOR PAIN NEEDED, ELEVATE FOOT AND APPLY ICE OVER FOOT SWELLING EVERY 4 HOURS, 30 MINUTES FOR 48 HOURS. Prescriptions: Tramadol HCl 50 mg [Ultram 50 mg] 50 mg PO Q6HPRN PRN #10 tablet PRN Reason: Pain
[2018-05-29 23:25] VITALS: BP 113/56; PULSE 88; O2SAT 98
--- NOTE | 2018-05-30 08:48 | XRAY ---
Indication: 3-5 toe pain following injury. Comparison: August 25, 2017. 3 nonweightbearing views of the left foot again demonstrates moderate heel spurs, tiny 5th metatarsal base spur, and medial/lateral midfoot accessory ossicles. No new/acute bony, articular, or soft tissue abnormalities.
== END 2018-05-29 23:27 | disposition home or self-care (01) ==
LOC: ED 22:10
DX: S90.122A Contusion of left lesser toe(s) without damage to nail, initial encounter (principal); W21.89XA Striking against or struck by other sports equipment, initial encounter; M79.672 Pain in left foot
CPT/HCPCS: 73630; 99283; A9270-GY

== ENCOUNTER 2018-08-06 19:24 | Emergency (ER) | payer OTHER ==
[2018-08-06] MEDS ORDERED: Sodium Chloride 0.9% 1000 ML 1,000 ML IV STA (20:00)
--- NOTE | 2018-08-06 20:05 | ERPHSYRPT ---
- History of Present Illness Time Seen by Provider: 08/06/18 19:54 Source: patient Exam Limitations: no limitations Patient Subjective Stated Complaint: Pt c/o intermittent "lightheaded" feeling "like I'm going to pass out" and "shakiness" x 3-4 days. pt states she was taking muscle relaxers for back pain and contributed to that, pt states she has not had any for 2 days. pt reports sensation has been constant since 1430 today. denies pain Triage Nursing Assessment: pink/warm/dry, resp easy, a&ox4, steady gait to room. pt offered wheelchair to room but declined. no weakness noted. Pt avoided eye contact entire triage. Physician History: 53-year-old white female with history of peripheral neuropathy, high blood pressure, asthma, hypoglycemia, fibromyalgia, chronic fatigue. Patient arrives with complaint of feeling somewhat weak and somewhat dizzy symptoms going on since last week she attributes some of this to taking a muscle relaxer however she states that she stopped this 2 days ago then this afternoon around 1:30 she began to feel weak felt dizzy felt like she was going to pass out. She did not have any movement problems no speech problems she is not having shortness of breath or chest pain. She states she just feels generally weak. Past medical history includes peripheral neuropathy, high blood pressure, asthma , hypoglycemia, fibromyalgia, neuropathy chronic fatigue, kidney failure in the past, fibroid cyst Past surgical history includes cholecystectomy D&C Last menstrual period December 2017 Timing/Duration: other (felt somewhat weak for one week, worse since 1:30 this afternoon) Severity: moderate Modifying Factors: Improves With: nothing Associated Symptoms: malaise, weakness, No nausea, No vomiting, No abdominal pain, No shortness of breath, No heartburn, No diaphoresis, No cough, No chills , No chest pain, No fever, No headaches, No loss of appetite, No rash, No syncope, No seizure Allergies/Adverse Reactions: codeine [Codeine] Allergy (Mild, Verified 05/07/18 20:15) doxycycline Allergy (Mild, Verified 05/07/18 20:15) Penicillins Allergy (Mild, Verified 05/07/18 20:15) aspirin Allergy (Unknown, Verified 05/07/18 20:15) Difficulty Breathing Patient states she has a sensitivity to aspirin. Home Medications: Ipratropium/Albuterol Sulfate [Combivent Inhaler] 2 puff IH .PRN PRN 07/06/12 [ History] Lisinopril 10 mg [Zestril 10 MG] 10 mg PO BID 02/28/13 [History] Fluticasone/Salmeterol [Advair 250-50 Diskus] 2 puff IH BID 01/15/15 [History] Ipratropium/Albuterol Sulfate [Combivent Respimat Inhal [place]] 4 gm IH QID PRN 01/27/18 [History] Hx Tetanus, Diphtheria Vaccination/Date Given: No Hx Influenza Vaccination/Date Given: No Hx Pneumococcal Vaccination/Date Given: No Immunizations Up to Date: No - Review of Systems Constitutional: Weakness, No Fever, No Chills Eyes: No Symptoms Ears, Nose, & Throat: No Symptoms Respiratory: No Cough, No Dyspnea Cardiac: No Chest Pain, No Edema, No Syncope Abdominal/Gastrointestinal: No Abdominal Pain, No Nausea, No Vomiting, No Diarrhea Genitourinary Symptoms: No Dysuria Musculoskeletal: No Back Pain, No Neck Pain Skin: No Rash Neurological: No Dizziness, No Focal Weakness, No Sensory Changes Psychological: No Symptoms Endocrine: No Symptoms All Other Systems: Reviewed and Negative - Past Medical History Pertinent Past Medical History: Yes Neurological History: Peripheral Neuropathy ENT History: Other Cardiac History: Hypertension Respiratory History: Asthma Endocrine Medical History: Hypoglycemia Musculoskeletal History: Fibromyalgia GI Medical History: No Pertinent History, Other History: Other Psycho-Social History: No Pertinent History Female Reproductive Disorders: No Pertinent History Other Medical History: neuropathy. chronic fatigue. acute kidney failure. fibroid cyst in uterous 9 cm - Past Surgical History Past Surgical History: Yes Neuro Surgical History: No Pertinent History Cardiac: No Pertinent History Respiratory: No Pertinent History Gastrointestinal: Cholecystectomy Genitourinary: No Pertinent History Musculoskeletal: No Pertinent History Female Surgical History: Other Other Surgical History: sinus, d & c - Social History Smoking Status: Never smoker Exposure to second hand smoke: No Drug Use: none Patient Lives Alone: No Significant Family History: diabetes, hypertension - Female History Hx Now: No - Nursing Vital Signs Nursing Vital Signs: Initial Vital Signs Temperature 98.2 F 08/06/18 19:34 Pulse Rate 112 H 08/06/18 19:34 Respiratory Rate 18 08/06/18 19:34 Blood Pressure 141/78 08/06/18 19:34 O2 Sat by Pulse Oximetry 95 08/06/18 19:34 Pain Scale Pain Intensity 0 - Physical Exam General Appearance: no apparent distress, alert Eye Exam: PERRL/EOMI, eyes nml inspection Ears, Nose, Throat Exam: normal ENT inspection, TMs normal, pharynx normal, moist mucous membranes Neck Exam: normal inspection, non-tender, supple, full range of motion Respiratory Exam: normal breath sounds, lungs clear, No respiratory distress Cardiovascular Exam: regular rate/rhythm, normal heart sounds, normal peripheral pulses, capillary refill <2 sec Gastrointestinal/Abdomen Exam: soft, normal bowel sounds, No tenderness, No mass Back Exam: normal inspection, normal range of motion, No CVA tenderness, No vertebral tenderness Extremity Exam: normal inspection, normal range of motion, pelvis stable Neurologic Exam: alert, oriented x 3, cooperative, table lever operator II-XII nml as tested, normal mood/affect, nml cerebellar function, nml station & gait, sensation nml, No motor deficits Skin Exam: normal color, warm, dry, No rash Lymphatic Exam: No adenopathy SpO2 Interpretation: normal (95%) SpO2: 95 - Course Nursing assessment & vital signs reviewed: Yes EKG Interpreted by Me: RATE (103 bpm), Sinus Tach, NORMAL AXIS, Other (EKG: Sinus tachycardia, 103 bpm, normal axis, no acute ST or T wave changes noted) Ordered Tests: Active Orders 24 hr Category Date Time Status EKG-ER Only STAT Care 08/06/18 20:00 Active IV Insertion STAT Care 08/06/18 20:00 Active Orthostatic Vital Signs STAT Care 08/06/18 22:24 Active AMYLASE Stat Lab 08/06/18 20:55 Completed CBC W DIFF Stat Lab 08/06/18 20:55 Completed CMP Stat Lab 08/06/18 20:55 Completed CULTURE,URINE Stat Lab 08/06/18 21:10 Received HCG QUALITATIVE,SERUM Stat Lab 08/06/18 20:55 Completed LIPASE Stat Lab 08/06/18 20:55 Completed TROPONIN Q3H Lab 08/06/18 20:55 Completed TROPONIN Q3H Lab 08/06/18 23:00 Ordered TROPONIN Q3H Lab 08/07/18 02:00 Ordered TROPONIN Q3H Lab 08/07/18 05:00 Ordered TROPONIN Q3H Lab 08/07/18 08:00 Ordered UA W/RFX UR CULTURE Stat Lab 08/06/18 21:10 Completed Medication Summary Discontinued Medications Generic Name Dose Route Start Last Admin Trade Name Sahil PRN Reason Stop Dose Admin Sodium Chloride 1,000 mls @ 999 mls/hr 08/06/18 20:00 08/06/18 21:54 Sodium Chloride 0.9% 1000 Ml IV 08/06/18 21:00 Infused .Q1H1M STA Infusion Sodium Chloride Confirm 08/06/18 20:52 Sodium Chloride 0.9% 1000 Ml Administered 08/06/18 20:53 Dose 1,000 mls @ ud .ROUTE .STK-MED ONE Lab/Rad Data: Laboratory Result Diagrams 08/06/18 20:55 08/06/18 20:55 Laboratory Results 08/06/18 08/06/18 08/06/18 Range/Units 21:10 20:55 20:55 WBC (4.0-10.5) K/mm3 RBC (4.1-5.4) M/mm3 Hgb (12.0-16.0) gm/dl Hct (35-47) % MCV (78-100) fl MCH (26-32) pg MCHC (32-36) g/dl RDW (11.5-14.0) % Plt Count (150-450) K/mm3 MPV (6-9.5) fl Gran % (36.0-66.0) % Eos # (Auto) (0-0.5) Absolute Lymphs (auto) (1.0-4.6) Absolute Monos (auto) (0.0-1.3) Lymphocytes % (24.0-44.0) % Monocytes % (0.0-12.0) % Eosinophils % (0.00-5.0) % Basophils % (0.0-0.4) % Absolute Granulocytes (1.4-6.9) Basophils # (0-0.4) Sodium 139 (137-145) mmol/L Potassium 3.3 L (3.5-5.1) mmol/L Chloride 106 (98-107) mmol/L Carbon Dioxide 22 (22-30) mmol/L Anion Gap 14.6 (5-15) MEQ/L BUN 20 H (7-17) mg/dL Creatinine 0.54 (0.52-1.04) mg/dL Estimated GFR > 60.0 ML/MIN Glucose 112 H (74-106) mg/dL Calcium 9.6 (8.4-10.2) mg/dL Total Bilirubin 0.50 (0.2-1.3) mg/dL AST 19 (14-36) U/L ALT 31 (0-35) U/L Alkaline Phosphatase 97 (38-126) U/L Troponin I (0.000-0.034) ng/mL Serum Total Protein 7.3 (6.3-8.2) g/dL Albumin 4.1 (3.5-5.0) g/dL Amylase 67 (30-110) U/L Lipase 81 (23-300) U/L Serum , Qual NEGATIVE (Negative) Urine Color YELLOW (YELLOW) Urine Appearance SLIGHTLY CLOUDY (CLEAR) Urine pH 6.0 (5-6) Ur Specific [place] 1.013 (1.005-1.025) Urine Protein NEGATIVE (Negative) Urine Ketones NEGATIVE (NEGATIVE) Urine Blood MODERATE (0-5) Yogi/ul Urine Nitrite NEGATIVE (NEGATIVE) Urine Bilirubin NEGATIVE (NEGATIVE) Urine Urobilinogen NEGATIVE (0-1) mg/dL Ur Leukocyte Esterase TRACE (NEGATIVE) Urine WBC (Auto) 6-10 (0-5) /HPF Urine RBC (Auto) 0-2 (0-2) /HPF U Epithel Cells (Auto) RARE (FEW) /HPF Urine Bacteria (Auto) NONE SEEN (NEGATIVE) /HPF Urine Culture Reflexed YES (NO) Urine Glucose NEGATIVE (NEGATIVE) mg/dL 08/06/18 08/06/18 Range/Units 20:55 20:55 WBC 12.2 H (4.0-10.5) K/mm3 RBC 4.36 (4.1-5.4) M/mm3 Hgb 13.3 (12.0-16.0) gm/dl Hct 40.7 (35-47) % MCV 93.3 (78-100) fl MCH 30.5 (26-32) pg MCHC 32.7 (32-36) g/dl RDW 15.2 H (11.5-14.0) % Plt Count 302 (150-450) K/mm3 MPV 8.9 (6-9.5) fl Gran % 73.0 H (36.0-66.0) % Eos # (Auto) 0.17 (0-0.5) Absolute Lymphs (auto) 1.98 (1.0-4.6) Absolute Monos (auto) 1.11 (0.0-1.3) Lymphocytes % 16.2 L (24.0-44.0) % Monocytes % 9.1 (0.0-12.0) % Eosinophils % 1.4 (0.00-5.0) % Basophils % 0.3 (0.0-0.4) % Absolute Granulocytes 8.92 H (1.4-6.9) Basophils # 0.04 (0-0.4) Sodium (137-145) mmol/L Potassium (3.5-5.1) mmol/L Chloride (98-107) mmol/L Carbon Dioxide (22-30) mmol/L Anion Gap (5-15) MEQ/L BUN (7-17) mg/dL Creatinine (0.52-1.04) mg/dL Estimated GFR ML/MIN Glucose (74-106) mg/dL Calcium (8.4-10.2) mg/dL Total Bilirubin (0.2-1.3) mg/dL AST (14-36) U/L ALT (0-35) U/L Alkaline Phosphatase (38-126) U/L Troponin I < 0.012 (0.000-0.034) ng/mL Serum Total Protein (6.3-8.2) g/dL Albumin (3.5-5.0) g/dL Amylase (30-110) U/L Lipase (23-300) U/L Serum , Qual (Negative) Urine Color (YELLOW) Urine Appearance (CLEAR) Urine pH (5-6) Ur Specific [place] (1.005-1.025) Urine Protein (Negative) Urine Ketones (NEGATIVE) Urine Blood (0-5) Yogi/ul Urine Nitrite (NEGATIVE) Urine Bilirubin (NEGATIVE) Urine Urobilinogen (0-1) mg/dL Ur Leukocyte Esterase (NEGATIVE) Urine WBC (Auto) (0-5) /HPF Urine RBC (Auto) (0-2) /HPF U Epithel Cells (Auto) (FEW) /HPF Urine Bacteria (Auto) (NEGATIVE) /HPF Urine Culture Reflexed (NO) Urine Glucose (NEGATIVE) mg/dL - Progress Progress: improved Progress Note: 08/06/18 22:28 Patient feeling better after 1 L of normal saline labs chemistry essentially normal with the exception of potassium 3.3 CBC White blood cell 12.2 hemoglobin 13.3 hematocrit 40.7 platelets 302 troponin within normal limits hCG is negative urine 6-10 white cells negative nitrites. Patient's vitals are stable patient's EKG sinus tachycardia 10 3 bpm normal axis no acute ST or T wave changes. Impression 1 dizziness to hypokalemia Plan return home plenty of fluids follow-up with family Dr. - Departure Departure Disposition: Home Clinical Impression: Dizziness, Hypokalemia Condition: Fair Critical Care Time: No Referrals: DANO GARCIA NP [Primary Care Provider] - Additional Instructions: Return home. Plenty of fluids. Follow-up with your family doctor.. Return for acute distress or for severe symptoms.
[2018-08-06] MEDS ORDERED: Sodium Chloride 0.9% 1000 ML 1,000 ML ONE (20:52)
[2018-08-06 21:01] LABS: BASOPHIL % 0.3 % (0.0-0.4); Basophil (Absolute #) 0.04 (0-0.4); Eosinophil % 1.4 % (0.00-5.0); Eosinophil (Absolute #) 0.17 (0-0.5); Granulocyte Absolute (ANC) 8.92 (1.4-6.9); Hematocrit 40.7 % (35-47); Hemoglobin 13.3 gm/dl (12.0-16.0); Lymphocyte (Absolute #) 1.98 (1.0-4.6); Lymphocytes % 16.2 % (24.0-44.0); Mean Cell Volume 93.3 fl (78-100); Mean Corpuscular Hemoglobin 30.5 pg (26-32); Mean Corpuscular Hgb Concent. 32.7 g/dl (32-36); Mean Platelet Volume 8.9 fl (6-9.5); Monocyte (Absolute #) 1.11 (0.0-1.3); Monocytes % 9.1 % (0.0-12.0); Platelet Count 302 K/mm3 (150-450); Red Blood Count 4.36 M/mm3 (4.1-5.4); Red Cell Distribution Width 15.2 % (11.5-14.0); White Blood Count 12.2 K/mm3 (4.0-10.5)
[2018-08-06 21:13] LABS: ALBUMIN 4.1 g/dL (3.5-5.0); ALKALINE PHOSPHATASE 97 U/L (38-126); AMYLASE 67 U/L (30-110); ANION GAP 14.6 MEQ/L (5-15); BLOOD UREA NITROGEN 20 mg/dL (7-17); CHLORIDE 106 mmol/L (98-107); Calcium 9.6 mg/dL (8.4-10.2); Carbon Dioxide 22 mmol/L (22-30); Creatinine 1 0.54 mg/dL (0.52-1.04); Glucose 112 mg/dL (74-106); LIPASE 81 U/L (23-300); Potassium 3.3 mmol/L (3.5-5.1); SGOT/AST 19 U/L (14-36); SGPT/ALT 31 U/L (0-35); SODIUM 139 mmol/L (137-145); Total Protein 7.3 g/dL (6.3-8.2)
[2018-08-06 21:50] VITALS: BP 125/60; PULSE 101
[2018-08-06 21:59] LABS: Appearance SLIGHTLY CLOUDY (CLEAR); Bilirubin NEGATIVE (NEGATIVE); Blood MODERATE Ery/ul (0-5); Epithelial Cells RARE /HPF (FEW); Glucose NEGATIVE (NEGATIVE); Ketones NEGATIVE (NEGATIVE); Leukocyte Esterase TRACE (NEGATIVE); Nitrite NEGATIVE (NEGATIVE); Protein,Urine Dip NEGATIVE (Negative); RBC 0-2 /HPF (0-2); Specific Gravity 1.013 (1.005-1.025); Urobilinogen NEGATIVE mg/dL (0-1)
[2018-08-06 22:21] LABS: Bacteria NONE SEEN /HPF (NEGATIVE)
[2018-08-06] MEDS ORDERED: Klor Con 10 MEQ PO ONE ×3 (22:27→22:38)
[2018-08-06 22:30] VITALS: O2SAT 95
== END 2018-08-06 22:43 | disposition home or self-care (01) ==
LOC: ED 19:24
DX: E87.6 Hypokalemia (principal); G62.9 Polyneuropathy, unspecified; J45.909 Unspecified asthma, uncomplicated; M79.7 Fibromyalgia; R53.82 Chronic fatigue, unspecified; N17.9 Acute kidney failure, unspecified
CPT/HCPCS: 36000; 36415; 80053; 81001; 81025; 82150; 83690; 84484; 85025; 87086; 93005; 96360; 99284; A9270-GY

== ENCOUNTER 2018-11-12 14:37 | Emergency (ER) | payer OTHER ==
[2018-11-12] MEDS ORDERED: Pepcid 20 MG VIAL IV ONE ×2 (15:27→15:34)
[2018-11-12] MEDS ORDERED: Zofran 4 MG/2 ML VIAL IV ONE (15:27)
[2018-11-12] MEDS ORDERED: Sodium Chloride 0.9% 1000 ML 1,000 ML IV SCH (15:30)
[2018-11-12] MEDS ORDERED: Zofran 4 MG/2 ML VIAL ONE (15:34)
[2018-11-12] MEDS ORDERED: Sodium Chloride 0.9% 1000 ML 1,000 ML ONE (15:34)
[2018-11-12 15:51] LABS: BASOPHIL % 0.4 % (0.0-0.4); Basophil (Absolute #) 0.04 (0-0.4); Eosinophil % 1.7 % (0.00-5.0); Eosinophil (Absolute #) 0.17 (0-0.5); Granulocyte Absolute (ANC) 6.41 (1.4-6.9); Granulocytes % 65.9 % (36.0-66.0); Hematocrit 41.1 % (35-47); Hemoglobin 13.6 gm/dl (12.0-16.0); Lymphocyte (Absolute #) 2.14 (1.0-4.6); Mean Cell Volume 93.8 fl (78-100); Mean Corpuscular Hemoglobin 31.1 pg (26-32); Mean Corpuscular Hgb Concent. 33.1 g/dl (32-36); Mean Platelet Volume 9.2 fl (6-9.5); Monocyte (Absolute #) 0.97 (0.0-1.3); Platelet Count 286 K/mm3 (150-450); Red Blood Count 4.38 M/mm3 (4.1-5.4); White Blood Count 9.7 K/mm3 (4.0-10.5)
[2018-11-12 16:00] LABS: Appearance SLIGHTLY CLOUDY (CLEAR); Bacteria RARE /HPF (NEGATIVE); Bilirubin NEGATIVE (NEGATIVE); Blood MODERATE Ery/ul (0-5); Epithelial Cells RARE /HPF (FEW); Glucose NEGATIVE (NEGATIVE); Ketones NEGATIVE (NEGATIVE); Leukocyte Esterase TRACE (NEGATIVE); Mucus SLIGHT /HPF (NEGATIVE); Nitrite NEGATIVE (NEGATIVE); Protein,Urine Dip NEGATIVE (Negative); Specific Gravity 1.024 (1.005-1.025); Urobilinogen NEGATIVE mg/dL (0-1)
[2018-11-12 16:04] LABS: ALBUMIN 4.2 g/dL (3.5-5.0); ALKALINE PHOSPHATASE 80 U/L (38-126); AMYLASE 66 U/L (30-110); ANION GAP 12.4 MEQ/L (5-15); BLOOD UREA NITROGEN 20 mg/dL (7-17); CHLORIDE 108 mmol/L (98-107); Calcium 9.9 mg/dL (8.4-10.2); Carbon Dioxide 22 mmol/L (22-30); Creatinine 1 0.63 mg/dL (0.52-1.04); Glucose 92 mg/dL (74-106); Potassium 3.9 mmol/L (3.5-5.1); SGOT/AST 24 U/L (14-36); SGPT/ALT 37 U/L (0-35); SODIUM 139 mmol/L (137-145); Total Protein 7.2 g/dL (6.3-8.2)
[2018-11-12 16:14] VITALS: O2SAT 95
--- NOTE | 2018-11-12 16:31 | ERPHSYRPT ---
- History of Present Illness Time Seen by Provider: 11/12/18 15:08 Historian: patient Exam Limitations: clinical condition Patient Subjective Stated Complaint: Pt states "My mom and I went out to eat wednesday in [place] and she was not feeling well after that and I am not feeling well now. I have horrible cramping in my belly and really bad indigestion. The nausea is horrible as well. I also have had some dizzy spells. I had a biopsy of uterus on wednesday as well." Triage Nursing Assessment: Pt presented through the front, alert and oriented X 3, skin pwd. Pt ambulates with an upright steady gait, able to speak in clear full sentences. Pt in no apparent respiratory distress. Physician History: PATIENT WITH A HISTORY OF FIBROMYALGIA, PERIPHERAL NEUROPATHY, HYPERTENSION, ASTHMA, UNDER WENT A UTERINE BIOPSY 5 DAYS AGO AND AFTER EATING DINNER THAT NIGHT DEVELOPED GENERALIZED CRAMPS ASSOCIATED WITH NAUSEA DAILY. DENIES EMESIS, DIARRHEA OR URINARY SYMPTOMS. Timing/Duration: week(s) Activities at Onset: none Quality: cramping Abdominal Pain Onset Location: other (DENIES PAIN) Pain Radiation: no radiation Severity of Pain-Max: none Severity of Pain-Current: none Modifying Factors: Improves With: nothing Associated Symptoms: nausea Previous symptoms: no prior history Allergies/Adverse Reactions: codeine [Codeine] Allergy (Mild, Verified 05/07/18 20:15) doxycycline Allergy (Mild, Verified 05/07/18 20:15) Penicillins Allergy (Mild, Verified 05/07/18 20:15) aspirin Allergy (Unknown, Verified 05/07/18 20:15) Difficulty Breathing Patient states she has a sensitivity to aspirin. Home Medications: Lisinopril 10 mg [Zestril 10 MG] 10 mg PO BID 02/28/13 [History] Fluticasone/Salmeterol [Advair 250-50 Diskus] 2 puff IH BID 01/15/15 [History] Ipratropium/Albuterol Sulfate [Combivent Respimat Inhal [place]] 4 gm IH QID PRN 01/27/18 [History] Hx Tetanus, Diphtheria Vaccination/Date Given: No Hx Influenza Vaccination/Date Given: No Hx Pneumococcal Vaccination/Date Given: No Immunizations Up to Date: Yes - Review of Systems Constitutional: No Fever, No Chills Eyes: No Symptoms Ears, Nose, & Throat: No Symptoms Respiratory: No Symptoms, No Cough, No Dyspnea Cardiac: No Chest Pain, No Edema, No Syncope Abdominal/Gastrointestinal: Nausea, No Abdominal Pain, No Vomiting, No Diarrhea Genitourinary Symptoms: No Symptoms, No Dysuria Musculoskeletal: No Symptoms, No Back Pain, No Neck Pain Skin: No Symptoms, No Rash Neurological: No Dizziness, No Focal Weakness, No Sensory Changes Psychological: No Symptoms Endocrine: No Symptoms All Other Systems: Reviewed and Negative - Past Medical History Pertinent Past Medical History: Yes Neurological History: Peripheral Neuropathy ENT History: Other Cardiac History: Hypertension Respiratory History: Asthma Endocrine Medical History: Hypoglycemia Musculoskeletal History: Fibromyalgia GI Medical History: No Pertinent History, Other History: Other Psycho-Social History: No Pertinent History Female Reproductive Disorders: No Pertinent History Other Medical History: neuropathy. chronic fatigue. acute kidney failure. fibroid cyst in uterous 9 cm - Past Surgical History Past Surgical History: Yes Neuro Surgical History: No Pertinent History Cardiac: No Pertinent History Respiratory: No Pertinent History Gastrointestinal: Cholecystectomy Genitourinary: No Pertinent History Musculoskeletal: No Pertinent History Female Surgical History: Other Other Surgical History: sinus, d & c - Social History Smoking Status: Never smoker Exposure to second hand smoke: No Drug Use: none Patient Lives Alone: No Significant Family History: diabetes, hypertension - Female History Hx Last Menstrual Period: 09/14/2018 Hx Now: No - Nursing Vital Signs Nursing Vital Signs: Initial Vital Signs Temperature 98.1 F 11/12/18 14:55 Pulse Rate 102 H 11/12/18 14:55 Respiratory Rate 24 11/12/18 14:55 Blood Pressure 103/68 11/12/18 14:55 O2 Sat by Pulse Oximetry 94 L 11/12/18 14:55 Pain Scale Pain Intensity 0 - Physical Exam General Appearance: no apparent distress, alert Eye Exam: PERRL/EOMI, eyes nml inspection Ears, Nose, Throat Exam: normal ENT inspection, pharynx normal, moist mucous membranes Neck Exam: normal inspection, non-tender, supple, full range of motion Respiratory Exam: normal breath sounds, lungs clear, No respiratory distress Cardiovascular Exam: regular rate/rhythm, normal heart sounds Gastrointestinal/Abdomen Exam: soft, normal bowel sounds, tenderness (MINIMAL SUPRAPUBIC TENDERNESS), No mass Back Exam: normal inspection, normal range of motion, No CVA tenderness, No vertebral tenderness Extremity Exam: normal inspection, normal range of motion, pelvis stable Neurologic Exam: alert, oriented x 3, cooperative, normal mood/affect, nml cerebellar function, sensation nml, No motor deficits Skin Exam: normal color, warm, dry SpO2 Interpretation: normal SpO2: 95 - CT Exams Abdomen/Pelvis CT Interpretation: Tele-radiologist Report (NO EVIDENCE OF ACUTE INTRA- ABDOMINAL OR PELVIC PATHOLOGY), Other (HETEROGENEOUS APPEARANCE OF UTERUS APPEARS TO BE A 5.4CM FIBROID) Ordered Tests: Active Orders 24 hr Category Date Time Status Clean Catch Urine Specimen STAT Care 11/12/18 15:27 Active IV Insertion STAT Care 11/12/18 15:27 Active Orthostatic Vital Signs STAT Care 11/12/18 15:29 Active ABDOMEN AND PELVIS W CONTRAST [CT] Stat Exams 11/12/18 15:28 Taken AMYLASE Stat Lab 11/12/18 15:45 Completed CBC W DIFF Stat Lab 11/12/18 15:45 Completed CMP Stat Lab 11/12/18 15:45 Completed CULTURE,URINE Stat Lab 11/12/18 15:45 Received LIPASE Stat Lab 11/12/18 15:45 Completed UA W/RFX UR CULTURE Stat Lab 11/12/18 15:45 Completed Urine Triage Profile Stat Lab 11/12/18 15:45 Completed Medication Summary Generic Name Dose Route Start Last Admin Trade Name Freq PRN Reason Stop Dose Admin Sodium Chloride 1,000 mls @ 250 mls/hr 11/12/18 15:30 11/12/18 15:38 Sodium Chloride 0.9% 1000 Ml IV 12/12/18 15:29 250 mls/hr .Q4H CECELIA Administration Discontinued Medications Generic Name Dose Route Start Last Admin Trade Name Freq PRN Reason Stop Dose Admin Famotidine 20 mg 11/12/18 15:27 11/12/18 15:38 Pepcid 20 Mg Vial IV 11/12/18 15:28 20 mg STAT ONE Administration Famotidine Confirm 11/12/18 15:34 Pepcid 20 Mg Vial Administered 11/12/18 15:35 Dose 20 mg IV .STK-MED ONE Ondansetron HCl 4 mg 11/12/18 15:27 11/12/18 15:38 Zofran 4 Mg/2 Ml Vial IV 11/12/18 15:28 4 mg STAT ONE Administration Ondansetron HCl Confirm 11/12/18 15:34 Zofran 4 Mg/2 Ml Vial Administered 11/12/18 15:35 Dose 4 mg .ROUTE .STK-MED ONE Lab/Rad Data: Laboratory Result Diagrams 11/12/18 15:45 11/12/18 15:45 Laboratory Results 11/12/18 11/12/18 11/12/18 Range/Units 15:45 15:45 15:45 WBC (4.0-10.5) K/mm3 RBC (4.1-5.4) M/mm3 Hgb (12.0-16.0) gm/dl Hct (35-47) % MCV (78-100) fl MCH (26-32) pg MCHC (32-36) g/dl RDW (11.5-14.0) % Plt Count (150-450) K/mm3 MPV (6-9.5) fl Gran % (36.0-66.0) % Eos # (Auto) (0-0.5) Absolute Lymphs (auto) (1.0-4.6) Absolute Monos (auto) (0.0-1.3) Lymphocytes % (24.0-44.0) % Monocytes % (0.0-12.0) % Eosinophils % (0.00-5.0) % Basophils % (0.0-0.4) % Absolute Granulocytes (1.4-6.9) Basophils # (0-0.4) Sodium 139 (137-145) mmol/L Potassium 3.9 (3.5-5.1) mmol/L Chloride 108 H (98-107) mmol/L Carbon Dioxide 22 (22-30) mmol/L Anion Gap 12.4 (5-15) MEQ/L BUN 20 H (7-17) mg/dL Creatinine 0.63 (0.52-1.04) mg/dL Estimated GFR > 60.0 ML/MIN Glucose 92 (74-106) mg/dL Calcium 9.9 (8.4-10.2) mg/dL Total Bilirubin 0.40 (0.2-1.3) mg/dL AST 24 (14-36) U/L ALT 37 H (0-35) U/L Alkaline Phosphatase 80 (38-126) U/L Serum Total Protein 7.2 (6.3-8.2) g/dL Albumin 4.2 (3.5-5.0) g/dL Amylase 66 (30-110) U/L Lipase 69 (23-300) U/L Urine Color YELLOW (YELLOW) Urine Appearance SLIGHTLY CLOUDY (CLEAR) Urine pH 5.0 (5-6) Ur Specific [place] 1.024 (1.005-1.025) Urine Protein NEGATIVE (Negative) Urine Ketones NEGATIVE (NEGATIVE) Urine Blood MODERATE (0-5) Yogi/ul Urine Nitrite NEGATIVE (NEGATIVE) Urine Bilirubin NEGATIVE (NEGATIVE) Urine Urobilinogen NEGATIVE (0-1) mg/dL Ur Leukocyte Esterase TRACE (NEGATIVE) Urine WBC (Auto) 3-5 (0-5) /HPF Urine RBC (Auto) 3-5 (0-2) /HPF U Epithel Cells (Auto) RARE (FEW) /HPF Urine Bacteria (Auto) RARE (NEGATIVE) /HPF Calcium Oxalate Crystal 11-25 (NEGATIVE) /HPF Urine Mucus (Auto) SLIGHT (NEGATIVE) /HPF Urine Culture Reflexed YES (NO) Urine Glucose NEGATIVE (NEGATIVE) mg/dL Urine Opiates Level NEGATIVE (NEGATIVE) Ur Methadone NEGATIVE (NEGATIVE) Urine Barbiturates NEGATIVE (NEGATIVE) Ur Phencyclidine (PCP) NEGATIVE (NEGATIVE) Urine Amphetamine NEGATIVE (NEGATIVE) U Benzodiazepine Level NEGATIVE (NEGATIVE) Urine Cocaine NEGATIVE (NEGATIVE) Urine Marijuana (THC) NEGATIVE (NEGATIVE) 11/12/18 Range/Units 15:45 WBC 9.7 (4.0-10.5) K/mm3 RBC 4.38 (4.1-5.4) M/mm3 Hgb 13.6 (12.0-16.0) gm/dl Hct 41.1 (35-47) % MCV 93.8 (78-100) fl MCH 31.1 (26-32) pg MCHC 33.1 (32-36) g/dl RDW 15.0 H (11.5-14.0) % Plt Count 286 (150-450) K/mm3 MPV 9.2 (6-9.5) fl Gran % 65.9 (36.0-66.0) % Eos # (Auto) 0.17 (0-0.5) Absolute Lymphs (auto) 2.14 (1.0-4.6) Absolute Monos (auto) 0.97 (0.0-1.3) Lymphocytes % 22.0 L (24.0-44.0) % Monocytes % 10.0 (0.0-12.0) % Eosinophils % 1.7 (0.00-5.0) % Basophils % 0.4 (0.0-0.4) % Absolute Granulocytes 6.41 (1.4-6.9) Basophils # 0.04 (0-0.4) Sodium (137-145) mmol/L Potassium (3.5-5.1) mmol/L Chloride (98-107) mmol/L Carbon Dioxide (22-30) mmol/L Anion Gap (5-15) MEQ/L BUN (7-17) mg/dL Creatinine (0.52-1.04) mg/dL Estimated GFR ML/MIN Glucose (74-106) mg/dL Calcium (8.4-10.2) mg/dL Total Bilirubin (0.2-1.3) mg/dL AST (14-36) U/L ALT (0-35) U/L Alkaline Phosphatase (38-126) U/L Serum Total Protein (6.3-8.2) g/dL Albumin (3.5-5.0) g/dL Amylase (30-110) U/L Lipase (23-300) U/L Urine Color (YELLOW) Urine Appearance (CLEAR) Urine pH (5-6) Ur Specific [place] (1.005-1.025) Urine Protein (Negative) Urine Ketones (NEGATIVE) Urine Blood (0-5) Yogi/ul Urine Nitrite (NEGATIVE) Urine Bilirubin (NEGATIVE) Urine Urobilinogen (0-1) mg/dL Ur Leukocyte Esterase (NEGATIVE) Urine WBC (Auto) (0-5) /HPF Urine RBC (Auto) (0-2) /HPF U Epithel Cells (Auto) (FEW) /HPF Urine Bacteria (Auto) (NEGATIVE) /HPF Calcium Oxalate Crystal (NEGATIVE) /HPF Urine Mucus (Auto) (NEGATIVE) /HPF Urine Culture Reflexed (NO) Urine Glucose (NEGATIVE) mg/dL Urine Opiates Level (NEGATIVE) Ur Methadone (NEGATIVE) Urine Barbiturates (NEGATIVE) Ur Phencyclidine (PCP) (NEGATIVE) Urine Amphetamine (NEGATIVE) U Benzodiazepine Level (NEGATIVE) Urine Cocaine (NEGATIVE) Urine Marijuana (THC) (NEGATIVE) - Progress Progress Note: 11/12/18 17:25 ALL LABS REVIEWED AND ARE NORMAL EXCEPT FOR URINE, ADMINISTERED LEVAQUIN 500MG ORALLY Counseled pt/family regarding: lab results, diagnosis, need for follow-up, rad results - Departure Departure Disposition: Home Clinical Impression: NAUSEA, URINARY TRACT INFECTION Condition: Stable Critical Care Time: No Referrals: ENRIKE WALKER [employer] [Primary Care Provider] - Additional Instructions: ANTIBIOTIC LEVAQUIN 500MG DAILY FOR 10 DAYS. ZOFRAN 4MG EVERY 6 HOURS FOR NAUSEA NEEDED. CONSULT YOUR PRIMARY CARE PROVIDER FOR FOLLOWUP IN 4-5 DAYS. Prescriptions: Ondansetron ODT 4 MG [Zofran Odt 4 mg] 4 mg PO Q6H PRN PRN #10 tab.rapdis PRN Reason: Nausea Levofloxacin [Levaquin] 500 mg PO DAILY #10 tablet
[2018-11-12 16:37] LABS: Amphetamine,Urine NEGATIVE (NEGATIVE); Barbiturate,Urine NEGATIVE (NEGATIVE); Benzodiazepine,Urine NEGATIVE (NEGATIVE); Cocaine,Urine NEGATIVE (NEGATIVE); Methadone,Urine NEGATIVE (NEGATIVE); Opiate,Urine NEGATIVE (NEGATIVE); PCP,Urine NEGATIVE (NEGATIVE); THC,Urine NEGATIVE (NEGATIVE)
[2018-11-12] MEDS ORDERED: Levofloxacin 250MG Tablet PO ONE (17:30)
[2018-11-12] MEDS ORDERED: Levofloxacin 250MG Tablet ONE (17:38)
[2018-11-12 18:03] VITALS: BP 103/62; PULSE 79
--- NOTE | 2018-11-13 00:04 | XRAY ---
Indication: Nausea and dizziness. Status post uterine biopsy. Multiple contiguous axial images obtained through the abdomen and pelvis using 80 cc Isovue 370 contrast only as ordered. Comparison: None Lung bases demonstrates minimal bibasilar fibrosis/scarring. No infiltrate or effusion. Heart is not enlarged. Stomach is distended with food/fluid. Noncontrasted stomach and bowel loops appear nonobstructed. Normal appendix. Mild diffuse scattered colonic fecal debris. No free fluid/air. Uterus is prominent with 5 cm noncalcified subserosal fundal fibroid. Mild diffuse fatty liver, cholecystectomy, and calcified splenic granulomas. Remaining liver, pancreas, spleen, adrenal glands, kidneys, ureters, bladder, uterus, and aorta appear unremarkable. No pathologic retroperitoneal lymphadenopathy. Osseous structures intact. Impression: 1. Uterine fibroid, mild fecal stasis, fatty liver, and evidence for old granulomatous disease. 2. Remaining CT abdomen/pelvis with contrast exam is negative. Comment: Preliminary interpretation was made by C. No critical discrepancy. CTDI 28.13
== END 2018-11-12 18:10 | disposition home or self-care (01) ==
LOC: ED 14:37
DX: R11.0 Nausea (principal); N39.0 Urinary tract infection, site not specified; I10 Essential (primary) hypertension; G62.9 Polyneuropathy, unspecified; M79.7 Fibromyalgia; J45.909 Unspecified asthma, uncomplicated; Z79.899 Other long term (current) drug therapy
CPT/HCPCS: 36000; 36415; 74177; 80053; 80307; 81001; 82150; 83690; 85025; 87086; 96360; 96361; 96374; 96375; 99284; J2405; A9270-GY

== ENCOUNTER 2019-03-04 18:02 | Emergency (ER) | payer OTHER ==
[2019-03-04] MEDS ORDERED: BENADRYL 50 MG/ML ONE (18:40)
[2019-03-04] MEDS ORDERED: Pepcid 20 MG ONE ×2 (18:41→18:43)
--- NOTE | 2019-03-04 18:41 | ERPHSYRPT ---
- History of Present Illness Time Seen by Provider: 03/04/19 18:25 Source: patient Exam Limitations: no limitations Patient Subjective Stated Complaint: pt has hives to trunk and burning and itching to hands started today, has not treated rash Triage Nursing Assessment: pt alert, walked in, resp easy, skln w/d/p. ,moves all ext well, no edema noted Physician History: Patient woke up with itchy painful rash on the left chest and under her left breast in her left arm. She has noticed on her right chest. Timing/Duration: hour(s) (1) Quality: burning, itchy, painful Severity: moderate Location: face, torso, extremities Possible Causes: no cause identified Modifying Factors: Improves With: other (nothing tried) Associated Symptoms: change in skin texture, hives, rash, No blisters, No difficulty breathing, No edema, No fever, No flushing, No headache, No malaise, No nasal congestion, No numbness, No pallor, No paresthesia, No petechiae, No sore throat, No swelling/mass/lumps, No tingling Allergies/Adverse Reactions: codeine [Codeine] Allergy (Mild, Verified 03/04/19 18:17) doxycycline Allergy (Mild, Verified 03/04/19 18:17) Penicillins Allergy (Mild, Verified 03/04/19 18:17) aspirin Allergy (Unknown, Verified 03/04/19 18:17) Difficulty Breathing Patient states she has a sensitivity to aspirin. Home Medications: Lisinopril 10 mg [Zestril 10 MG] 10 mg PO BID 02/28/13 [History] Fluticasone/Salmeterol [Advair 250-50 Diskus] 2 puff IH BID 01/15/15 [History] Ipratropium/Albuterol Sulfate [Combivent Respimat Inhal [place]] 4 gm IH QID PRN 01/27/18 [History] Hx Tetanus, Diphtheria Vaccination/Date Given: Yes Hx Influenza Vaccination/Date Given: No Hx Pneumococcal Vaccination/Date Given: No Immunizations Up to Date: Yes - Review of Systems Constitutional: No Fever, No Chills Eyes: No Eye Pain, No Vision Changes Ears, Nose, & Throat: No Nose Pain, No Nose Congestion, No Mouth Swelling, No Throat Pain, No Throat Swelling, No Painful Swallowing, No Stridor Respiratory: No Cough, No Dyspnea Cardiac: No Chest Pain, No Palpitations, No Syncope Abdominal/Gastrointestinal: No Abdominal Pain, No Nausea, No Vomiting, No Melena Genitourinary Symptoms: No Hematuria, No Flank Pain Musculoskeletal: No Arthralgias, No Back Pain, No Neck Pain, No Joint Swelling, No Myalgias Skin: Pruritis, Rash Neurological: No Dizziness, No Focal Weakness, No Parasthesia, No Tremors Psychological: No Anxiety Endocrine: No Polydipsia, No Excessive Sweating Hematologic/Lymphatic: No Easy Bleeding, No Easy Bruising All Other Systems: Reviewed and Negative - Past Medical History Pertinent Past Medical History: Yes Neurological History: Peripheral Neuropathy ENT History: Other Cardiac History: Hypertension Respiratory History: Asthma Endocrine Medical History: Hypoglycemia Musculoskeletal History: Fibromyalgia GI Medical History: No Pertinent History, Other History: Other Psycho-Social History: No Pertinent History Female Reproductive Disorders: No Pertinent History Other Medical History: neuropathy. chronic fatigue. acute kidney failure. fibroid cyst in uterous 9 cm - Past Surgical History Past Surgical History: Yes Neuro Surgical History: No Pertinent History Cardiac: No Pertinent History Respiratory: No Pertinent History Gastrointestinal: Cholecystectomy Genitourinary: No Pertinent History Musculoskeletal: No Pertinent History Female Surgical History: Other Other Surgical History: sinus, d & c - Social History Smoking Status: Never smoker Exposure to second hand smoke: No Drug Use: none Patient Lives Alone: No Significant Family History: diabetes, hypertension - Female History Hx Last Menstrual Period: irregular Hx Now: No - Nursing Vital Signs Nursing Vital Signs: Initial Vital Signs Temperature 98.2 F 03/04/19 18:05 Pulse Rate 88 03/04/19 18:05 Respiratory Rate 18 03/04/19 18:05 Blood Pressure 99/65 03/04/19 18:05 O2 Sat by Pulse Oximetry 97 03/04/19 18:05 Pain Scale Pain Intensity 33 - Physical Exam General Appearance: no apparent distress, alert Eye Exam: PERRL/EOMI, eyes nml inspection, No scleral icterus Ears, Nose, Throat Exam: pharynx normal, moist mucous membranes Neck Exam: normal inspection, non-tender, supple, full range of motion, No meningismus Respiratory Exam: normal breath sounds, lungs clear, airway intact, No chest tenderness, No respiratory distress, No diminished breath sounds, No accessory muscle use, No crackles/rales, No rhonchi, No wheezing Cardiovascular Exam: regular rate/rhythm, normal heart sounds, normal peripheral pulses, capillary refill <2 sec Gastrointestinal/Abdomen Exam: soft, normal bowel sounds, No tenderness, No distention, No mass Back Exam: normal inspection, normal range of motion, No CVA tenderness Extremity Exam: normal inspection, normal range of motion, pelvis stable, No contusions, No calf tenderness, No parasthesia, No swelling Neurologic Exam: alert, oriented x 3, cooperative, referral agent II-XII nml as tested, normal mood/affect, sensation nml, motor deficits Skin Exam: normal color, warm, dry, rash (urticarial/patches), No petechiae, No jaundice, No cyanosis, No diaphoresis, No embolic lesions, No ecchymosis SpO2 Interpretation: normal SpO2: 98 O2 Delivery: Room Air Ordered Tests: Medication Summary Discontinued Medications Generic Name Dose Route Start Last Admin Trade Name Freq PRN Reason Stop Dose Admin Betamethasone Acet/Betameth SodPhos 12 mg 03/04/19 18:30 Cel[place] Soluspan 6mg/Ml IM 03/04/19 18:31 STAT ONE Diphenhydramine HCl 50 mg 03/04/19 18:30 Benadryl 50 Mg/Ml IM 03/04/19 18:31 STAT ONE Famotidine 40 mg 03/04/19 18:30 Pepcid 20 Mg PO 03/04/19 18:31 STAT ONE - Departure Departure Disposition: Home Clinical Impression: Urticaria Allergic reaction Qualifiers: Encounter type: initial encounter Qualified Code(s): T78.40XA - Allergy, unspecified, initial encounter Condition: Good Critical Care Time: No Referrals: VICK BENSON [Primary Care Provider] - 03/06/19 Instructions: Hives (DC), Anaphylaxis (DC) Additional Instructions: Return immediately back to the emergency department if you have any difficulty breathing, swelling to your mouth or tongue area, wheezing, uncontrollable cough , worsening rash, worsening itching, new chest pain, new back pain, new abdominal pain, or any other concerning signs or symptoms that were not present at today's emergency room visit for immediate reevaluation in the emergency department. Prescriptions: Desloratadine [Clarinex] 5 mg PO DAILY #10 tablet EPINEPHrine [Epipen 0.3 MG] 0.3 mg IM DAILY PRN PRN #1 pack PRN Reason: Allergies Prednisone 20 mg [Deltasone 20 mg] 60 mg PO DAILY #9 tablet
[2019-03-04] MEDS: Celestone Soluspan 6MG/ML IM ONE (18:42)
[2019-03-04] MEDS: BENADRYL 50 MG/ML IM ONE (18:42)
[2019-03-04] MEDS: Pepcid 20 MG PO ONE (18:42)
[2019-03-04] MEDS ORDERED: Celestone Soluspan 6MG/ML ONE (18:43)
[2019-03-04 18:52] VITALS: BP 119/70; PULSE 92; O2SAT 95
== END 2019-03-04 18:58 | disposition home or self-care (01) ==
LOC: ED 18:02
DX: L50.9 Urticaria, unspecified (principal); T78.40XA Allergy, unspecified, initial encounter
CPT/HCPCS: 96372; 99284; J0702; J1200; A9270-GY

== ENCOUNTER 2019-03-10 18:23 | Emergency (ER) | payer OTHER ==
[2019-03-10] MEDS ORDERED: Sodium Chloride 0.9% 1000 ML 1,000 ML IV STA (19:40)
--- NOTE | 2019-03-10 19:40 | ERPHSYRPT ---
- History of Present Illness Time Seen by Provider: 03/10/19 18:36 Source: patient Exam Limitations: no limitations Patient Subjective Stated Complaint: pt here for general weakness since . she was palced on predinsone for allergic reaction on 03/04/19. shes states she can hardly function, Triage Nursing Assessment: pt alert, walked in, resp easy, skin w/d/p. no edema , moves all ext well. 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 States she had high as 6 days ago, seen in this emergency department and placed on 3 days of steroids. States starting the following day, nearly one week now, despite being done with steroids for 3 days, she has had complete exhaustion. No chest pain shortness of breath cough nausea vomiting fevers chills or other complaints. She states she is just "zapped". She states she is exhausted "not quite right". PMH: patient endorses hypertension Social: Patient denies tobacco Allergies/Adverse Reactions: codeine [Codeine] Allergy (Mild, Verified 03/10/19 18:41) doxycycline Allergy (Mild, Verified 03/10/19 18:41) Penicillins Allergy (Mild, Verified 03/10/19 18:41) aspirin Allergy (Unknown, Verified 03/10/19 18:41) Difficulty Breathing Patient states she has a sensitivity to aspirin. Home Medications: Lisinopril 10 mg [Zestril 10 MG] 10 mg PO BID 02/28/13 [History] Fluticasone/Salmeterol [Advair 250-50 Diskus] 2 puff IH BID 01/15/15 [History] Ipratropium/Albuterol Sulfate [Combivent Respimat Inhal [place]] 4 gm IH QID PRN 01/27/18 [History] Hx Tetanus, Diphtheria Vaccination/Date Given: Yes Hx Influenza Vaccination/Date Given: No Hx Pneumococcal Vaccination/Date Given: No Immunizations Up to Date: Yes - Review of Systems Constitutional: Fatigue, Weakness, No Fever, No Chills Eyes: No Symptoms Ears, Nose, & Throat: No Symptoms Respiratory: No Cough, No Dyspnea Cardiac: No Chest Pain, No Edema, No Syncope Abdominal/Gastrointestinal: No Abdominal Pain, No Nausea, No Vomiting, No Diarrhea Genitourinary Symptoms: No Dysuria Musculoskeletal: No Back Pain, No Neck Pain Skin: No Rash Neurological: No Dizziness, No Focal Weakness, No Sensory Changes Psychological: No Symptoms Endocrine: No Symptoms All Other Systems: Reviewed and Negative - Past Medical History Pertinent Past Medical History: Yes Neurological History: Peripheral Neuropathy ENT History: Other Cardiac History: Hypertension Respiratory History: Asthma Endocrine Medical History: Hypoglycemia Musculoskeletal History: Fibromyalgia GI Medical History: No Pertinent History, Other History: Other Psycho-Social History: No Pertinent History Female Reproductive Disorders: No Pertinent History Other Medical History: neuropathy. chronic fatigue. acute kidney failure. fibroid cyst in uterous 9 cm - Past Surgical History Past Surgical History: Yes Neuro Surgical History: No Pertinent History Cardiac: No Pertinent History Respiratory: No Pertinent History Gastrointestinal: Cholecystectomy Genitourinary: No Pertinent History Musculoskeletal: No Pertinent History Female Surgical History: Other Other Surgical History: sinus, d & c - Social History Smoking Status: Never smoker Exposure to second hand smoke: No Drug Use: none Patient Lives Alone: No Significant Family History: diabetes, hypertension - Female History Hx Last Menstrual Period: irregular Hx Now: No - Nursing Vital Signs Nursing Vital Signs: Initial Vital Signs Temperature 98.6 F 03/10/19 18:43 Pulse Rate 83 03/10/19 18:43 Respiratory Rate 16 03/10/19 18:43 Blood Pressure 101/62 03/10/19 18:43 O2 Sat by Pulse Oximetry 96 03/10/19 18:43 Pain Scale Pain Intensity 2 - Physical Exam General Appearance: no apparent distress, alert Eye Exam: PERRL/EOMI, eyes nml inspection Ears, Nose, Throat Exam: normal ENT inspection, TMs normal, pharynx normal, moist mucous membranes Neck Exam: normal inspection, non-tender, supple, full range of motion Respiratory Exam: normal breath sounds, lungs clear, No respiratory distress Cardiovascular Exam: regular rate/rhythm, normal heart sounds, normal peripheral pulses Gastrointestinal/Abdomen Exam: soft, normal bowel sounds, No tenderness, No mass Back Exam: normal inspection, normal range of motion, No CVA tenderness, No vertebral tenderness Extremity Exam: normal inspection, normal range of motion, pelvis stable Neurologic Exam: alert, oriented x 3, cooperative, normal mood/affect, nml cerebellar function, nml station & gait, sensation nml, No motor deficits Skin Exam: normal color, warm, dry, No rash Lymphatic Exam: No adenopathy SpO2: 96 Ordered Tests: Active Orders 24 hr Category Date Time Status BMP Stat Lab 03/10/19 20:00 Completed CBC W DIFF Stat Lab 03/10/19 19:37 Completed CULTURE,URINE Stat Lab 03/10/19 20:00 Received Manual Differential NC Stat Lab 03/10/19 19:37 Completed UA W/RFX UR CULTURE Stat Lab 03/10/19 20:00 Completed Medication Summary Discontinued Medications Generic Name Dose Route Start Last Admin Trade Name Sahil PRN Reason Stop Dose Admin Sodium Chloride 1,000 mls @ 999 mls/hr 03/10/19 19:40 03/10/19 21:17 Sodium Chloride 0.9% 1000 Ml IV 03/10/19 20:40 Infused .Q1H1M STA Infusion Sodium Chloride Confirm 03/10/19 19:47 Sodium Chloride 0.9% 1000 Ml Administered 03/10/19 19:48 Dose 1,000 mls @ ud .ROUTE .STK-MED ONE Lab/Rad Data: Laboratory Result Diagrams 03/10/19 19:37 03/10/19 20:00 Laboratory Results 03/10/19 03/10/19 03/10/19 Range/Units 20:00 20:00 19:37 WBC 13.1 H (4.0-10.5) K/mm3 RBC 4.30 (4.1-5.4) M/mm3 Hgb 13.1 (12.0-16.0) gm/dl Hct 40.5 (35-47) % MCV 94.2 (78-100) fl MCH 30.5 (26-32) pg MCHC 32.3 (32-36) g/dl RDW 15.3 H (11.5-14.0) % Plt Count 284 (150-450) K/mm3 MPV 9.4 (6-9.5) fl Segmented Neutrophils 57 (36.0-66.0) % Lymphocytes (Manual) 30 (24-44) % Monocytes (Manual) 11 (0.0-12.0) % Basophils (Manual) 2 H (0.0-1.0) % Toxic Granulation 1+ Platelet Estimate NORMAL (NORMAL) RBC Morphology ABNORMAL Poikilocytosis 1+ Anisocytosis 1+ Sodium 141 (137-145) mmol/L Potassium 4.7 (3.5-5.1) mmol/L Chloride 105 (98-107) mmol/L Carbon Dioxide 27 (22-30) mmol/L Anion Gap 13.6 (5-15) MEQ/L BUN 26 H (7-17) mg/dL Creatinine 0.50 L (0.52-1.04) mg/dL Estimated GFR > 60.0 ML/MIN Glucose 95 (74-106) mg/dL Calcium 9.2 (8.4-10.2) mg/dL Urine Color STRAW (YELLOW) Urine Appearance CLEAR (CLEAR) Urine pH 9.0 (5-6) Ur Specific [place] 1.016 (1.005-1.025) Urine Protein NEGATIVE (Negative) Urine Ketones NEGATIVE (NEGATIVE) Urine Blood NEGATIVE (0-5) Yogi/ul Urine Nitrite NEGATIVE (NEGATIVE) Urine Bilirubin NEGATIVE (NEGATIVE) Urine Urobilinogen NEGATIVE (0-1) mg/dL Ur Leukocyte Esterase TRACE (NEGATIVE) Urine WBC (Auto) 11-15 (0-5) /HPF Urine RBC (Auto) 11-15 (0-2) /HPF U Epithel Cells (Auto) RARE (FEW) /HPF Urine Bacteria (Auto) FEW (NEGATIVE) /HPF Urine Mucus (Auto) SLIGHT (NEGATIVE) /HPF Urine Culture Reflexed YES (NO) Urine Glucose NEGATIVE (NEGATIVE) mg/dL - Progress Progress: unchanged Progress Note: patient has very vague complaints. She is nontoxic. Normal vital signs. Ambulatory without assistance. Unremarkable electrolytes, normal sinus rhythm on the monitor. No evidence of urinary tract infection. I recommended rest and good hydration and follow up with primary care. The patient was understanding of the treatment plan and return precautions. 03/11/19 01:58 - Departure Departure Disposition: Home Clinical Impression: Fatigue Qualifiers: Fatigue type: unspecified Qualified Code(s): R53.83 - Other fatigue Condition: Good Critical Care Time: No Referrals: VICK BENSON [Primary Care Provider] - Instructions: Fatigue Additional Instructions: please followup with your primary care provider return here for new or concerning symptoms.
[2019-03-10] MEDS ORDERED: Sodium Chloride 0.9% 1000 ML 1,000 ML ONE (19:47)
[2019-03-10 20:41] LABS: Appearance CLEAR (CLEAR); Bacteria FEW /HPF (NEGATIVE); Bilirubin NEGATIVE (NEGATIVE); Blood NEGATIVE Ery/ul (0-5); Epithelial Cells RARE /HPF (FEW); Glucose NEGATIVE (NEGATIVE); Ketones NEGATIVE (NEGATIVE); Leukocyte Esterase TRACE (NEGATIVE); Mucus SLIGHT /HPF (NEGATIVE); Nitrite NEGATIVE (NEGATIVE); Protein,Urine Dip NEGATIVE (Negative); Specific Gravity 1.016 (1.005-1.025); Urobilinogen NEGATIVE mg/dL (0-1)
[2019-03-10 20:51] LABS: ANION GAP 13.6 MEQ/L (5-15); BLOOD UREA NITROGEN 26 mg/dL (7-17); CHLORIDE 105 mmol/L (98-107); Calcium 9.2 mg/dL (8.4-10.2); Carbon Dioxide 27 mmol/L (22-30); Glucose 95 mg/dL (74-106); SODIUM 141 mmol/L (137-145)
[2019-03-10 20:54] LABS: Potassium 4.7 mmol/L (3.5-5.1)
[2019-03-10 21:02] LABS: Hematocrit 40.5 % (35-47); Hemoglobin 13.1 gm/dl (12.0-16.0); Mean Cell Volume 94.2 fl (78-100); Mean Corpuscular Hemoglobin 30.5 pg (26-32); Mean Corpuscular Hgb Concent. 32.3 g/dl (32-36); Mean Platelet Volume 9.4 fl (6-9.5); Platelet Count 284 K/mm3 (150-450); Red Cell Distribution Width 15.3 % (11.5-14.0); White Blood Count 13.1 K/mm3 (4.0-10.5)
[2019-03-10 21:16] VITALS: BP 110/63; PULSE 75
[2019-03-10 21:45] LABS: Basophil 2 % (0.0-1.0); Lymphocytes 30 % (24-44); Monocyte 11 % (0.0-12.0); Neutrophils 57 % (36.0-66.0); Platelet Estimate NORMAL (NORMAL); Total Cells Counted 100
[2019-03-10 21:46] LABS: ANISOCYTOSIS 1+; Poikilocytosis 1+; Toxic Granulation 1+
[2019-03-11 01:59] VITALS: O2SAT 96
== END 2019-03-10 21:32 | disposition home or self-care (01) ==
LOC: ED 18:23
DX: R53.83 Other fatigue (principal)
CPT/HCPCS: 36000; 36415; 80048; 81001; 85025; 87086; 96360; 96374; 99284

== ENCOUNTER 2021-02-26 13:53 | Day surgery (SDC) | payer OTHER ==
[2021-02-26] MEDS ORDERED: Xylocaine 1% Vial 30 ML PF IJ ONE (13:54)
[2021-02-26] MEDS ORDERED: Depo-Medrol 40 MG/ML IM ONE (13:54)
[2021-02-26] MEDS ORDERED: Sodium Chloride 0.9(Preservative Free) 10 ML IJ ONE (13:54)
[2021-02-26] MEDS ORDERED: DIPRIVAN 200 MG/20 ML IV ONE (16:05)
--- NOTE | 2021-02-26 17:11 | XRAY ---
Indication: Lumbar JOSAFAT. Intraoperative fluoroscopy provided for 25 seconds. 2 digital spot image submitted for interpretation demonstrate midline posterior needle tip projecting just posterior to last lumbar segment. Small amount of contrast injected for needle tip placement. Correlate with intraoperative findings/report.
[2021-02-26] MEDS ORDERED: Lactated Ringers 1,000 ML IV ONE (17:28)
--- NOTE | 2021-02-26 17:39 | XRAY ---
25 seconds fluoroscopy time in surgery for lumbar JOSAFAT.
== END 2021-02-26 16:43 | disposition home or self-care (01) ==
LOC: SDC-PAIN 13:53
PROVIDERS: ATTEND Psychiatry & Neurology Pain Medicine
DX: M54.16 Radiculopathy, lumbar region (principal); R00.0 Tachycardia, unspecified; M79.7 Fibromyalgia; I10 Essential (primary) hypertension; J45.909 Unspecified asthma, uncomplicated; Z79.899 Other long term (current) drug therapy
CPT/HCPCS: 62323; 72100; 77003; 84703; J1030; J2001; J2704; Q9966

== ENCOUNTER 2021-05-14 10:46 | Day surgery (SDC) | payer OTHER ==
[2021-05-14] MEDS ORDERED: Sodium Chloride 0.9% 10 ML FLUSH Syringe IJ ONE (10:47)
[2021-05-14] MEDS ORDERED: Xylocaine 1% Vial 30 ML PF IJ ONE (10:47)
[2021-05-14] MEDS ORDERED: Depo-Medrol 40 MG/ML IM ONE (10:47)
[2021-05-14] MEDS ORDERED: DIPRIVAN 200 MG/20 ML IV ONE (12:55)
[2021-05-14] MEDS ORDERED: Lactated Ringers 1,000 ML IV ONE (13:37)
--- NOTE | 2021-05-14 13:48 | XRAY ---
Indication: Lumbar JOSAFAT Intraoperative fluoroscopy provided for 13 seconds. 2 digital spot image submitted for interpretation demonstrates posterior midline needle tip projecting posterior to a mid lumbar segment presumed L3. Small amount of contrast injected for needle tip placement. Correlate with intraoperative findings/report.
--- NOTE | 2021-05-14 14:22 | XRAY ---
13 seconds of fluoroscopy was used in surgery for a L3 JOSAFAT.
== END 2021-05-14 13:20 | disposition home or self-care (01) ==
LOC: SDC-PAIN 10:46
PROVIDERS: ATTEND Psychiatry & Neurology Pain Medicine
DX: M54.16 Radiculopathy, lumbar region (principal); I10 Essential (primary) hypertension; Z79.899 Other long term (current) drug therapy
CPT/HCPCS: 62323; 72100; 77003; 84703; J1030; J2001; J2704; Q9966

== ENCOUNTER 2021-05-27 00:36 | Observation (INO) | payer OTHER ==
[2021-05-27 01:47] LABS: Basophil (Absolute #) 0.03 (0-0.4); Eosinophil % 1.5 % (0.00-5.0); Eosinophil (Absolute #) 0.17 (0-0.5); Hemoglobin 13.9 gm/dl (12.0-16.0); Lymphocyte (Absolute #) 2.78 (1.0-4.6); Lymphocytes % 24.7 % (24.0-44.0); Mean Cell Volume 96.6 fl (78-100); Mean Corpuscular Hemoglobin 31.2 pg (26-32); Mean Corpuscular Hgb Concent. 32.3 g/dl (32-36); Mean Platelet Volume 9.1 fl (7.5-11.0); Monocyte (Absolute #) 0.97 (0.0-1.3); Monocytes % 8.6 % (0.0-12.0); Neutrophil % 64.9 % (36.0-66.0); Platelet Count 310 K/mm3 (150-450); Red Blood Count 4.45 M/mm3 (4.1-5.4); Red Cell Distribution Width 14.6 % (11.5-14.0); White Blood Count 11.3 K/mm3 (4.0-10.5)
[2021-05-27 02:09] LABS: ALBUMIN 4.2 g/dL (3.5-5.0); ALKALINE PHOSPHATASE 122 U/L (38-126); ANION GAP 14.7 MEQ/L (5-15); BLOOD UREA NITROGEN 19 mg/dL (7-17); CHLORIDE 103 mmol/L (98-107); Calcium 9.6 mg/dL (8.4-10.2); Carbon Dioxide 27 mmol/L (22-30); Creatinine 1 0.72 mg/dL (0.52-1.04); EST GLOMERULAR FILTRATION RATE > 60.0 ML/MIN; Glucose 109 mg/dL (74-106); NT PRO BNP 21.1 pg/mL (0-900); Potassium 4.1 mmol/L (3.5-5.1); SGOT/AST 30 U/L (14-36); SGPT/ALT 55 U/L (0-35); SODIUM 141 mmol/L (137-145); Total Protein 7.1 g/dL (6.3-8.2)
[2021-05-27 02:30] LABS: INFLUENZA A NEGATIVE (NEGATIVE); INFLUENZA B NEGATIVE (NEGATIVE); RESPIRATORY SYNCTIAL VIRUS NEGATIVE (Negative); SARS-CoV-2 Xpert Express NEGATIVE (NEGATIVE)
--- NOTE | 2021-05-27 03:37 | ERPHSYRPT ---
- History of Present Illness Time Seen by Provider: 05/27/21 00:50 Source: patient Exam Limitations: no limitations Patient Subjective Stated Complaint: I was laying in bed and woke up around 11:30pm. When I awoke, I was lightheaded and just didn't feel good. Triage Nursing Assessment: pt c/o lightheadedness. Pt was in bed asleep and awoke at 2330, and was lightheaded at that time. Pt denies any headache, nausea, vomiting. Pt had an epidural to back for back pain 3 weeks ago, states, "they gave me a little more medicine this time with it". Pt saw Ayo Donahue NP, in April and was told that her "ears were full". Physician History: Patient is a 56-year-old female presents to our ED with complaints of dizziness. Patient states she was at home sleeping when she awoke. Patient states she did not feel well. Patient states she felt as though the room was spinning very fast. Patient tried to communicate with her was unable to get the words out. Symptoms lasted for several minutes before spontaneously resolving. No nausea or vomiting. No fever. No diarrhea. No rash. No trauma. Symptoms are currently mild to moderate in intensity. No specific worsening improving factors. Dizziness is not worse when she moves her head. Patient denies a history of the same. No chest pain or shortness of breath. Patient voices no other complaints concerns at this time. Timing/Duration: today Severity: moderate Modifying Factors: Improves With: nothing Associated Symptoms: denies symptoms Allergies/Adverse Reactions: codeine [Codeine] Allergy (Mild, Verified 05/27/21 01:06) doxycycline Allergy (Mild, Verified 05/27/21 01:06) Penicillins Allergy (Mild, Verified 05/27/21 01:06) aspirin Allergy (Unknown, Verified 05/27/21 01:06) Difficulty Breathing Patient states she has a sensitivity to aspirin. Home Medications: Lisinopril 10 mg [Zestril 10 MG] 10 mg PO BID 02/28/13 [History] Fluticasone/Salmeterol [Advair 250-50 Diskus] 2 puff IH BID 01/15/15 [History] Ipratropium/Albuterol Sulfate [Combivent Respimat Inhal [place]] 4 gm IH QID PRN 01/27/18 [History] Fexofenadine HCl [Anna Allergy] 60 mg PO DAILY 05/27/21 [History] Metoprolol Succinate 25 mg Xl* [Toprol-Xl 25MG Tablets] 25 mg PO DAILY 05/27/21 [History] Zafirlukast 20 mg [Accolate 20 mg] 10 mg PO BID 05/27/21 [History] Hx Tetanus, Diphtheria Vaccination/Date Given: No Hx Influenza Vaccination/Date Given: No Hx Pneumococcal Vaccination/Date Given: No Immunizations Up to Date: No Travel Risk - International Travel Have you traveled outside of the country in past 3 weeks: No - Coronavirus Screening Are you exhibiting any of the following symptoms?: Yes Symptoms: Cough: New Onset, Shortness of Breath, Headaches/Body Aches/Fatigue - Vaccine Status Have you recieved a Covid-19 vaccination: No - Review of Systems Constitutional: No Symptoms, No Fever, No Chills Eyes: No Symptoms Ears, Nose, & Throat: No Symptoms Respiratory: No Symptoms, No Cough, No Dyspnea Cardiac: No Symptoms, No Chest Pain, No Edema, No Syncope Abdominal/Gastrointestinal: No Symptoms, No Abdominal Pain, No Nausea, No Vomiting, No Diarrhea Genitourinary Symptoms: No Symptoms, No Dysuria Musculoskeletal: No Symptoms, No Back Pain, No Neck Pain Skin: No Symptoms, No Rash Neurological: No Symptoms, No Dizziness, No Focal Weakness, No Sensory Changes Psychological: No Symptoms Endocrine: No Symptoms Hematologic/Lymphatic: No Symptoms Immunological/Allergic: No Symptoms All Other Systems: Reviewed and Negative - Past Medical History Pertinent Past Medical History: Yes Neurological History: Migraines, Peripheral Neuropathy ENT History: Other Cardiac History: Hypertension Respiratory History: Asthma, Pneumonia Endocrine Medical History: Hypoglycemia Musculoskeletal History: Fibromyalgia GI Medical History: GERD, Gallbladder Disease, Other History: Other Psycho-Social History: No Pertinent History Female Reproductive Disorders: No Pertinent History Other Medical History: neuropathy. chronic fatigue. acute kidney failure. fibroid cyst in uterous 9 cm. epidural for back pain thru Dr. Sanches, January 2021, May 2021. - Past Surgical History Past Surgical History: Yes Neuro Surgical History: No Pertinent History Cardiac: No Pertinent History Respiratory: No Pertinent History Gastrointestinal: Cholecystectomy Genitourinary: No Pertinent History Musculoskeletal: No Pertinent History Female Surgical History: Dilation & Curettage Other Surgical History: sinus, d & c - Social History Smoking Status: Never smoker Exposure to second hand smoke: Yes Drug Use: none Patient Lives Alone: No Significant Family History: diabetes, hypertension - Female History Hx Now: No - Nursing Vital Signs Nursing Vital Signs: Initial Vital Signs Temperature 97.2 F 05/27/21 00:36 Pulse Rate 95 H 05/27/21 00:36 Respiratory Rate 20 05/27/21 00:36 Blood Pressure 164/87 05/27/21 00:36 O2 Sat by Pulse Oximetry 96 05/27/21 00:36 Pain Scale Pain Intensity 0 - Physical Exam General Appearance: no apparent distress, alert Eye Exam: PERRL/EOMI, eyes nml inspection Ears, Nose, Throat Exam: normal ENT inspection, TMs normal, pharynx normal, moist mucous membranes Neck Exam: normal inspection, non-tender, supple, full range of motion Respiratory Exam: normal breath sounds, lungs clear, airway intact, No respiratory distress Cardiovascular Exam: regular rate/rhythm, normal heart sounds, normal peripheral pulses Gastrointestinal/Abdomen Exam: soft, normal bowel sounds, No tenderness, No mass Back Exam: normal inspection, normal range of motion, No CVA tenderness, No vertebral tenderness Extremity Exam: normal inspection, normal range of motion, pelvis stable Neurologic Exam: alert, oriented x 3, cooperative, normal mood/affect, sensation nml, No motor deficits Skin Exam: normal color, warm, dry, No rash Lymphatic Exam: No adenopathy SpO2 Interpretation: normal SpO2: 97 O2 Delivery: Room Air - Course Nursing assessment & vital signs reviewed: Yes EKG Interpreted by Me: RATE (97), Sinus Rhythm, NORMAL AXIS, NORMAL INTERVALS - CT Exams Head CT Interpretation: Tele-radiologist Report (No acute intracranial findings) Other CT Interpretation: Tele-radiologist Report (CT angio head with contrast reveals no significant intracranial arterial abnormality.) Soft Tissue Neck CT Interpretation: Tele-radiologist Report (CT angio neck shows no significant stenosis of carotid and vertebral arteries.) Ordered Tests: Active Orders 24 hr Category Date Time Status Campus Administrative Assistant STAT Care 05/27/21 01:28 Active EKG-ER Only STAT Care 05/27/21 01:22 Active IV Insertion STAT Care 05/27/21 01:22 Active Pulse Oximetry (ED) STAT Care 05/27/21 01:[address] ANGIOGRAPHY NECK [CT] Stat Exams 05/27/21 01:31 Taken CTA HEAD W AND/OR WO CONTRAST [CT] Stat Exams 05/27/21 01:31 Taken HEAD WITHOUT CONTRAST [CT] Stat Exams 05/27/21 01:29 Taken CBC W DIFF Stat Lab 05/27/21 01:30 Completed CMP Stat Lab 05/27/21 01:30 Completed NT PRO BNP Stat Lab 05/27/21 01:30 Completed TROPONIN Q3H Lab 05/27/21 01:30 Completed TROPONIN Q3H Lab 05/27/21 04:30 Ordered TROPONIN Q3H Lab 05/27/21 07:30 Ordered TROPONIN Q3H Lab 05/27/21 10:30 Ordered TROPONIN Q3H Lab 05/27/21 13:30 Ordered Transfer Order Routine Transfer 05/27/21 Ordered Medication Summary Generic Name Dose Route Start Last Admin Trade Name Freq PRN Reason Stop Dose Admin Sodium Chloride 1,000 mls @ 75 mls/hr 05/27/21 04:45 Sodium Chloride 0.9% 1000 Ml IV 06/26/21 04:44 .[id number] [facility] Lab/Rad Data: Laboratory Result Diagrams 05/27/21 01:30 05/27/21 01:30 Laboratory Results 05/27/21 05/27/21 05/27/21 Range/Units 01:40 01:30 01:30 WBC (4.0-10.5) K/mm3 RBC (4.1-5.4) M/mm3 Hgb (12.0-16.0) gm/dl Hct (35-47) % MCV (78-100) fl MCH (26-32) pg MCHC (32-36) g/dl RDW (11.5-14.0) % Plt Count (150-450) K/mm3 MPV (7.5-11.0) fl Gran % (36.0-66.0) % Eos # (Auto) (0-0.5) Absolute Lymphs (auto) (1.0-4.6) Absolute Monos (auto) (0.0-1.3) Lymphocytes % (24.0-44.0) % Monocytes % (0.0-12.0) % Eosinophils % (0.00-5.0) % Basophils % (0.0-0.4) % Absolute Granulocytes (1.4-6.9) Basophils # (0-0.4) Sodium 141 (137-145) mmol/L Potassium 4.1 (3.5-5.1) mmol/L Chloride 103 (98-107) mmol/L Carbon Dioxide 27 (22-30) mmol/L Anion Gap 14.7 (5-15) MEQ/L BUN 19 H (7-17) mg/dL Creatinine 0.72 (0.52-1.04) mg/dL Estimated GFR > 60.0 ML/MIN Glucose 109 H (74-106) mg/dL Calcium 9.6 (8.4-10.2) mg/dL Total Bilirubin 0.40 (0.2-1.3) mg/dL AST 30 (14-36) U/L ALT 55 H (0-35) U/L Alkaline Phosphatase 122 (38-126) U/L Troponin I < 0.012 (0.000-0.034) ng/mL NT-Pro-B Natriuret Pep 21.1 (0-900) pg/mL Serum Total Protein 7.1 (6.3-8.2) g/dL Albumin 4.2 (3.5-5.0) g/dL Influenza Type A Ag NEGATIVE (NEGATIVE) Influenza Type B Ag NEGATIVE (NEGATIVE) RSV (PCR) NEGATIVE (Negative) SARS-CoV-2 (PCR) NEGATIVE (NEGATIVE) 05/27/21 Range/Units 01:30 WBC 11.3 H (4.0-10.5) K/mm3 RBC 4.45 (4.1-5.4) M/mm3 Hgb 13.9 (12.0-16.0) gm/dl Hct 43.0 (35-47) % MCV 96.6 (78-100) fl MCH 31.2 (26-32) pg MCHC 32.3 (32-36) g/dl RDW 14.6 H (11.5-14.0) % Plt Count 310 (150-450) K/mm3 MPV 9.1 (7.5-11.0) fl Gran % 64.9 (36.0-66.0) % Eos # (Auto) 0.17 (0-0.5) Absolute Lymphs (auto) 2.78 (1.0-4.6) Absolute Monos (auto) 0.97 (0.0-1.3) Lymphocytes % 24.7 (24.0-44.0) % Monocytes % 8.6 (0.0-12.0) % Eosinophils % 1.5 (0.00-5.0) % Basophils % 0.3 (0.0-0.4) % Absolute Granulocytes 7.30 H (1.4-6.9) Basophils # 0.03 (0-0.4) Sodium (137-145) mmol/L Potassium (3.5-5.1) mmol/L Chloride (98-107) mmol/L Carbon Dioxide (22-30) mmol/L Anion Gap (5-15) MEQ/L BUN (7-17) mg/dL Creatinine (0.52-1.04) mg/dL Estimated GFR ML/MIN Glucose (74-106) mg/dL Calcium (8.4-10.2) mg/dL Total Bilirubin (0.2-1.3) mg/dL AST (14-36) U/L ALT (0-35) U/L Alkaline Phosphatase (38-126) U/L Troponin I (0.000-0.034) ng/mL NT-Pro-B Natriuret Pep (0-900) pg/mL Serum Total Protein (6.3-8.2) g/dL Albumin (3.5-5.0) g/dL Influenza Type A Ag (NEGATIVE) Influenza Type B Ag (NEGATIVE) RSV (PCR) (Negative) SARS-CoV-2 (PCR) (NEGATIVE) - Progress Progress: improved Progress Note: Patient reassessed. She is currently asymptomatic. CTA head neck essentially nonremarkable. Teleneuro consult advised admission for echo/MRI. Case discussed with Dr. Magallon covering Dr. Donahue who accepts admission to observation. Plan of care discussed with patient. She agrees to admission [facility] for further evaluation and treatment. Patient is allergic to aspirin. Plavix administered instead. IV fluids infusing. 05/27/21 04:35 Portions of this note were created with voice recognition technology. There may be grammatical, spelling, punctuation or sound alike errors 05/27/21 04:[address] Lino Will see patient in: hospital (observation) Counseled pt/family regarding: lab results, diagnosis, rad results - Departure Departure Disposition: Home Clinical Impression: TIA (transient ischemic attack) Condition: Stable Critical Care Time: No Referrals: AMY DONAHUE NP [Primary Care Provider] - Follow up/PCP as directed
[2021-05-27] MEDS ORDERED: PLAVIX 75 MG Tablet PO ONE (04:36)
[2021-05-27] MEDS ORDERED: Sodium Chloride 0.9% 1000 ML 1,000 ML ONE ×2 (04:36→21:15)
[2021-05-27] MEDS ORDERED: PLAVIX 75 MG Tablet ONE (04:40)
[2021-05-27] MEDS ORDERED: Sodium Chloride 0.9% 1000 ML 1,000 ML IV SCH (04:45)
[2021-05-27] MEDS ORDERED: Senokot-S Tablet PO PRN (05:23)
[2021-05-27] MEDS ORDERED: Zofran 4 MG/2 ML VIAL IV PRN (05:23)
[2021-05-27] MEDS ORDERED: MILK OF MAGNESIA 30 ML PO PRN (05:23)
[2021-05-27] MEDS ORDERED: TYLENOL 325 MG PO PRN (05:23)
[2021-05-27] MEDS ORDERED: MAALOX ES 30 ML UNIT DOSE PO PRN (05:23)
[2021-05-27] MEDS ORDERED: EPINEPHRINE IM PRN (07:19)
[2021-05-27] MEDS ORDERED: MEDICATION INTERVENTION MC PRN (07:24)
[2021-05-27] MEDS ORDERED: IPRATROPIUM IH SCH (07:30)
[2021-05-27] MEDS ORDERED: ALBUTEROL SULFATE IH SCH (07:30)
[2021-05-27] MEDS ORDERED: [UNRECOGNIZED DRUG - OTHER] IH SCH (07:30)
--- NOTE | 2021-05-27 08:52 | XRAY ---
Indication: Dizziness, headache, and disorientated. Multiple contiguous axial images obtained through the head without contrast. Comparison: July 08, 2017. Normal appearing brain parenchyma, ventricles, and bony calvarium. Mild left and minimal right maxillary sinus mucosal thickening. Mastoid air cells are clear. Impression: Incidental paranasal sinus disease. Remaining CT head without contrast exam is again normal. Comment: Preliminary interpretation made by [facility]. No critical discrepancy.
--- NOTE | 2021-05-27 08:54 | XRAY ---
Indication: Dizziness, headache, and disorientated. Conventional contrast enhanced CTA neck performed using 100 cc Isovue 370 contrast. Two-dimensional sagittal and coronal reformatted images obtained. Additional three-dimensional reformatted images obtained using a separate workstation. Comparison: None. Normal CTA appearance to the visualized aortic arch, right brachiocephalic, left common carotid, and left subclavian arteries. Visualized common carotid, carotid bulb, internal carotid, and external carotid arteries are normal in CTA appearance. Vertebral arteries are bilaterally widely patent with the left slightly larger in caliber. No AV malformation. Thyroid gland enhances homogeneously. Supra-and infraglottic airway widely patent. Osseous structures intact with minimal degenerative changes throughout the spine. Lung apices are clear. Impression: Normal CTA neck with contrast exam. Comment: Preliminary interpretation made by [facility]. No critical discrepancy.
--- NOTE | 2021-05-27 08:56 | XRAY ---
Indication: Dizziness, headache, and disorientated. Conventional contrast enhanced CTA head performed using 100 cc Isovue 370 contrast. Two-dimensional sagittal and coronal reformatted images obtained. Additional three-dimensional reformatted images obtained using a separate workstation. Comparison: None. Distal internal carotid arteries are bilaterally patent without AV malformation. Normal carotid terminus with normal branching A1 and M1 segments bilaterally. More distal anterior cerebral, middle cerebral, anterior communicating, and posterior communication arteries are normal in CT appearance. Posterior circulation demonstrates normal CTA appearance to the basilar, left/right posterior cerebral, and left/right superior cerebellar arteries. Venous drainage/sinuses are unremarkable. No abnormal enhancing intra-or extra-axial mass. Impression: Normal CTA head with contrast exam. Comment: Preliminary interpretation made by [facility]. No critical discrepancy.
[2021-05-27] MEDS ORDERED: DUONEB 0.5-3 MG/3 ml Neb IH ONE (09:14)
[2021-05-27] MEDS: DUONEB 0.5-3 MG/3 ml Neb IH PRN (09:15)
[2021-05-27] MEDS: Advair Hfa 115/21 Common canister IH SCH ×2 (09:16→18:41)
[2021-05-27] MEDS ORDERED: Toprol-Xl 25MG Tablets PO SCH (10:00)
[2021-05-27] MEDS ORDERED: ADVAIR/WIXELLA 250-50 DISKUS 14 DOSE IH SCH (10:00)
[2021-05-27] MEDS ORDERED: NON-FORMULARY ITEM (Fexofenadine Hcl [Allegra Allergy] 60 MG Tablet) PO SCH (10:00)
[2021-05-27] MEDS: Toprol Xl 50 MG PO SCH (10:40)
[2021-05-27] MEDS: CLARITIN 10 MG PO SCH (10:40)
[2021-05-27] MEDS: ACCOLATE 20 MG PO SCH ×2 (10:40→21:16)
[2021-05-27] MEDS: Zestril 10 MG PO SCH ×2 (10:41→21:17)
[2021-05-27] MEDS ORDERED: Ativan 2 MG/1 ML VIAL IV PRN (11:46)
--- NOTE | 2021-05-27 11:57 | XRAY ---
Indication: TIA. Two-dimensional sonogram and color Doppler imaging of the carotid arteries of the neck performed. Comparison: None Examination of the right carotid circulation demonstrates widely patent common carotid, carotid bulb, internal carotid, and external carotid arteries. PSV of the CCA is 141 cm/s. PSV of the ICA is 147 cm/s. ICA/CCA ratio is 1.0. Normal antegrade vertebral artery flow. Examination of the left carotid circulation demonstrates widely patent common carotid, carotid bulb, internal carotid, and external carotid arteries. PSV of the CCA is 139 cm/s. PSV of the ICA is 143 cm/s. ICA/CCA ratio is 1.0. Normal antegrade vertebral artery flow. Impression: Widely patent carotid arteries of the neck bilaterally. Velocity measurements and ratios are negative for hemodynamically significant flow-limiting stenosis.
--- NOTE | 2021-05-27 12:47 | PCM.SSS ---
History of Present Illness - Chief Complaint Chief Complaint: TIA History of Present Illness: is a 56 year old female pt of Amy Donahue with morbid obesity, asthma, hx dizziness, GERD, BERGER, HTN, hypokalemia, hx opiate withdrawal, fibromyalgia, seasonal allergies, and chronic back pain who was admitted through ER with TIA. She woke up last night not feeling well. Had a hx BPPV previously for a few weeks, but states this was worse, "unreal," with severe counterclockwise spinning that lasted seconds, then slowed and stopped. She couldn't talk for several minutes, and couldn't see initially. Speech and vision returned in several minutes spontaneously, then she asked her to take her to the ER. CTA head/neck was unremarkable. Teleneurology visit was done in ER and they recommended MRI brain and echocardiogram today, along with various labs. Pt is just c/o frontal BERGER this morning, but notes she hasn't slept. There is no FHx CVA. Her father did have some sort of genetic heart condition. - Review of Systems Ears, Nose, & Throat: Sinus Drainage (3 weeks ago) Respiratory: Cough (3 weeks ago - was covid neg) Neurological: Dizziness, Headache, Sensory Changes, Speech Changes All Other Systems: Reviewed and Negative Medications & Allergies Home Medications: Home Medication List Lisinopril 10 mg [Zestril 10 MG] 10 mg PO BID 02/28/13 [History Confirmed 05/27/21] Fluticasone/Salmeterol [Advair 250-50 Diskus] 2 puff IH BID 01/15/15 [History Confirmed 05/27/21] Ipratropium/Albuterol Sulfate [Combivent Respimat Inhal [place]] 4 gm IH QID PRN 01/27/18 [History Confirmed 05/27/21] EPINEPHrine [Epipen 0.3 MG] 0.3 mg IM DAILY PRN PRN #1 pack 03/04/19 [Rx Confirmed 05/27/21] Fexofenadine HCl [Anna Allergy] 60 mg PO DAILY 05/27/21 [History Confirmed 05/27/21] Metoprolol Succinate 25 mg Xl* [Toprol-Xl 25MG Tablets] 50 mg PO DAILY 05/27/21 [History Confirmed 05/27/21] Zafirlukast 20 mg [Accolate 20 mg] 10 mg PO BID 05/27/21 [History Confirmed 05/27/21] Allergies/Adverse Reactions: Allergies Allergy/AdvReac Type Severity Reaction Status Date / Time codeine [Codeine] Allergy Mild Verified 05/27/21 01:06 doxycycline Allergy Mild Verified 05/27/21 01:06 Penicillins Allergy Mild Verified 05/27/21 01:06 aspirin Allergy Unknown Difficulty Verified 05/27/21 01:06 Breathing - Past Medical History Past Medical History: Yes Neurological History: Migraines, Peripheral Neuropathy ENT History: Other Cardiac History: Hypertension Respiratory History: Asthma, Pneumonia Endocrine Medical History: Hypoglycemia Musculoskelatal History: Fibromyalgia GI Medical History: GERD, Gallbladder Disease, Other History: Other Pyscho-Social History: No Pertinent History Reproductive Disorders: No Pertinent History Comment: neuropathy. chronic fatigue. acute kidney failure. fibroid cyst in uterous 9 cm. epidural for back pain thru Dr. Sanches, January 2021, May 2021. - Female History Are you now?: No - Past Surgical History Past Surgical History: Yes Neuro Surgical History: No Pertinent History Cardiac History: No Pertinent History Respiratory Surgery: No Pertinent History GI Surgical History: Cholecystectomy Genitourinary Surgical Hx: No Pertinent History Musculskeletal Surgical Hx: No Pertinent History Female Surgical History: Dilation & Curettage Other Surgical History: sinus, d & c - Social History Smoking Status: Never smoker Exposure to second hand smoke: No Alcohol: None Drug Use: none Significant Family History: diabetes, hypertension - Physical Exam Vital Signs: Vital Signs - 24 hr Temp Pulse Resp BP Pulse Ox 05/27/21 09:15 96 H 20 93 L 05/27/21 08:00 97.0 F 91 H 17 125/60 94 L 05/27/21 06:01 96.4 F 93 H 16 133/71 97 05/27/21 05:00 93 H 16 118/85 98 05/27/21 04:39 97 05/27/21 04:00 98 H 18 150/82 99 05/27/21 03:57 92 H 127/74 98 05/27/21 02:00 86 18 144/87 97 05/27/21 01:48 87 143/92 95 05/27/21 00:36 97.2 F 95 H 20 164/87 96 General Appearance: no apparent distress, obese Neurologic Exam: oriented x 3, cooperative, mill set up II-XII nml as tested Eye Exam: PERRL/EOMI, eyes nml inspection Ears, Nose, Throat Exam: pharynx normal, moist mucous membranes, No pharyngeal erythema Neck Exam: normal inspection, non-tender, No lymphadenopathy Respiratory Exam: normal breath sounds, lungs clear, No crackles/rales, No rhonchi, No wheezing Cardiovascular Exam: regular rate/rhythm, normal heart sounds, No murmur Gastrointestinal/Abdomen Exam: soft, normal bowel sounds, No tenderness, No distention, No mass, No guarding, No rebound Back Exam: normal inspection, No CVA tenderness Extremity Exam: normal inspection, No pedal edema, No swelling Skin Exam: normal color, warm, dry, No rash Results - Labs Lab/Micro Results: Lab Results-Last 24 Hours 05/27/21 05/27/21 05/27/21 Range/Units 01:30 01:30 01:30 WBC 11.3 H (4.0-10.5) K/mm3 RBC 4.45 (4.1-5.4) M/mm3 Hgb 13.9 (12.0-16.0) gm/dl Hct 43.0 (35-47) % MCV 96.6 (78-100) fl MCH 31.2 (26-32) pg MCHC 32.3 (32-36) g/dl RDW 14.6 H (11.5-14.0) % Plt Count 310 (150-450) K/mm3 MPV 9.1 (7.5-11.0) fl Gran % 64.9 (36.0-66.0) % Eos # (Auto) 0.17 (0-0.5) Absolute Lymphs (auto) 2.78 (1.0-4.6) Absolute Monos (auto) 0.97 (0.0-1.3) Lymphocytes % 24.7 (24.0-44.0) % Monocytes % 8.6 (0.0-12.0) % Eosinophils % 1.5 (0.00-5.0) % Basophils % 0.3 (0.0-0.4) % Absolute Granulocytes 7.30 H (1.4-6.9) Basophils # 0.03 (0-0.4) Sodium 141 (137-145) mmol/L Potassium 4.1 (3.5-5.1) mmol/L Chloride 103 (98-107) mmol/L Carbon Dioxide 27 (22-30) mmol/L Anion Gap 14.7 (5-15) MEQ/L BUN 19 H (7-17) mg/dL Creatinine 0.72 (0.52-1.04) mg/dL Estimated GFR > 60.0 ML/MIN Glucose 109 H (74-106) mg/dL Hemoglobin A1c (4.5-6.0) % Calcium 9.6 (8.4-10.2) mg/dL Total Bilirubin 0.40 (0.2-1.3) mg/dL AST 30 (14-36) U/L ALT 55 H (0-35) U/L Alkaline Phosphatase 122 (38-126) U/L Troponin I < 0.012 (0.000-0.034) ng/mL NT-Pro-B Natriuret Pep 21.1 (0-900) pg/mL Serum Total Protein 7.1 (6.3-8.2) g/dL Albumin 4.2 (3.5-5.0) g/dL Influenza Type A Ag (NEGATIVE) Influenza Type B Ag (NEGATIVE) RSV (PCR) (Negative) SARS-CoV-2 (PCR) (NEGATIVE) 05/27/21 05/27/21 05/27/21 Range/Units 01:40 04:35 07:33 WBC (4.0-10.5) K/mm3 RBC (4.1-5.4) M/mm3 Hgb (12.0-16.0) gm/dl Hct (35-47) % MCV (78-100) fl MCH (26-32) pg MCHC (32-36) g/dl RDW (11.5-14.0) % Plt Count (150-450) K/mm3 MPV (7.5-11.0) fl Gran % (36.0-66.0) % Eos # (Auto) (0-0.5) Absolute Lymphs (auto) (1.0-4.6) Absolute Monos (auto) (0.0-1.3) Lymphocytes % (24.0-44.0) % Monocytes % (0.0-12.0) % Eosinophils % (0.00-5.0) % Basophils % (0.0-0.4) % Absolute Granulocytes (1.4-6.9) Basophils # (0-0.4) Sodium (137-145) mmol/L Potassium (3.5-5.1) mmol/L Chloride (98-107) mmol/L Carbon Dioxide (22-30) mmol/L Anion Gap (5-15) MEQ/L BUN (7-17) mg/dL Creatinine (0.52-1.04) mg/dL Estimated GFR ML/MIN Glucose (74-106) mg/dL Hemoglobin A1c (4.5-6.0) % Calcium (8.4-10.2) mg/dL Total Bilirubin (0.2-1.3) mg/dL AST (14-36) U/L ALT (0-35) U/L Alkaline Phosphatase (38-126) U/L Troponin I < 0.012 < 0.012 (0.000-0.034) ng/mL NT-Pro-B Natriuret Pep (0-900) pg/mL Serum Total Protein (6.3-8.2) g/dL Albumin (3.5-5.0) g/dL Influenza Type A Ag NEGATIVE (NEGATIVE) Influenza Type B Ag NEGATIVE (NEGATIVE) RSV (PCR) NEGATIVE (Negative) SARS-CoV-2 (PCR) NEGATIVE (NEGATIVE) 05/27/21 05/27/21 Range/Units 10:58 Unknown WBC (4.0-10.5) K/mm3 RBC (4.1-5.4) M/mm3 Hgb (12.0-16.0) gm/dl Hct (35-47) % MCV (78-100) fl MCH (26-32) pg MCHC (32-36) g/dl RDW (11.5-14.0) % Plt Count (150-450) K/mm3 MPV (7.5-11.0) fl Gran % (36.0-66.0) % Eos # (Auto) (0-0.5) Absolute Lymphs (auto) (1.0-4.6) Absolute Monos (auto) (0.0-1.3) Lymphocytes % (24.0-44.0) % Monocytes % (0.0-12.0) % Eosinophils % (0.00-5.0) % Basophils % (0.0-0.4) % Absolute Granulocytes (1.4-6.9) Basophils # (0-0.4) Sodium (137-145) mmol/L Potassium (3.5-5.1) mmol/L Chloride (98-107) mmol/L Carbon Dioxide (22-30) mmol/L Anion Gap (5-15) MEQ/L BUN (7-17) mg/dL Creatinine (0.52-1.04) mg/dL Estimated GFR ML/MIN Glucose (74-106) mg/dL Hemoglobin A1c 6.48 H (4.5-6.0) % Calcium (8.4-10.2) mg/dL Total Bilirubin (0.2-1.3) mg/dL AST (14-36) U/L ALT (0-35) U/L Alkaline Phosphatase (38-126) U/L Troponin I < 0.012 (0.000-0.034) ng/mL NT-Pro-B Natriuret Pep (0-900) pg/mL Serum Total Protein (6.3-8.2) g/dL Albumin (3.5-5.0) g/dL Influenza Type A Ag (NEGATIVE) Influenza Type B Ag (NEGATIVE) RSV (PCR) (Negative) SARS-CoV-2 (PCR) (NEGATIVE) - Radiology Impressions Radiology Exams & Impressions: Radiology Procedures Category Date Time Status CAROTID BILATERAL [US] Routine Exams 05/27/[address] ANGIOGRAPHY NECK [CT] Stat Exams 05/27/21 01:31 Completed CTA HEAD W AND/OR WO CONTRAST [CT] Stat Exams 05/27/21 01:31 Completed ECHO W/2D AND DOPPLER [US] Routine Exams 05/27/21 05:23 Taken HEAD WITHOUT CONTRAST [CT] Stat Exams 05/27/21 01:29 Completed MRI BRAIN W & W/O CONTRAST [MRI] Routine Exams 05/27/21 09:01 Ordered - Other Procedures and Tests Respiratory Therapy 05/27/21 08:10 Respiratory Therapy Assessment DAILY 05/27/21 09:25 EKG ROUTINE 05/28/21 05:00 EKG IN AM 05/29/21 05:00 EKG IN AM Assessment/Plan (1) TIA (transient ischemic attack) Current Visit: Yes Status: Acute Assessment & Plan: finish imaging and labs, and may be able to send pt home later this afternoon if she is feeling well and testing is ok. F/u with PCP. May need to d/c home on plavix. Code(s): G45.9 - TRANSIENT CEREBRAL ISCHEMIC ATTACK, UNSPECIFIED (2) Dizziness Current Visit: No Status: Chronic Assessment & Plan: acute exacerbation resolved. Code(s): R42 - DIZZINESS AND GIDDINESS [facility] - Hospital Course Hospital Course: Pt is 56 yo morbidly obese female admitted through ER with TIA sx that had resolved. CTA head/neck wnl. She is getting MRI brain, echocardiogram, and several labs. May need to have lipid panel done outpatient. She was given plavix x 1 in ER and may need to start plavix daily if indicated by MRI results. If pt remains stable and testing is done, may be able to discharge her to home later this evening. - Vitals & Intake/Output Vital Signs: Vital Signs Temperature 97.0 F 05/27/21 08:00 Pulse Rate 96 H 05/27/21 09:15 Respiratory Rate 20 05/27/21 09:15 Blood Pressure 125/60 05/27/21 08:00 O2 Sat by Pulse Oximetry 93 L 05/27/21 09:15 Intake & Output: Intake & Output 05/25/21 05/26/21 05/27/21 05/28/21 11:59 11:59 11:59 11:59 Intake Total 240 Balance 240 Weight 114.7 kg - Lab Result Diagrams: 05/27/21 01:30 05/27/21 01:30 Lab Results-Last 24 Hrs: Lab Results-Last 24 Hours 05/27/21 05/27/21 05/27/21 Range/Units 01:30 01:30 01:30 WBC 11.3 H (4.0-10.5) K/mm3 RBC 4.45 (4.1-5.4) M/mm3 Hgb 13.9 (12.0-16.0) gm/dl Hct 43.0 (35-47) % MCV 96.6 (78-100) fl MCH 31.2 (26-32) pg MCHC 32.3 (32-36) g/dl RDW 14.6 H (11.5-14.0) % Plt Count 310 (150-450) K/mm3 MPV 9.1 (7.5-11.0) fl Gran % 64.9 (36.0-66.0) % Eos # (Auto) 0.17 (0-0.5) Absolute Lymphs (auto) 2.78 (1.0-4.6) Absolute Monos (auto) 0.97 (0.0-1.3) Lymphocytes % 24.7 (24.0-44.0) % Monocytes % 8.6 (0.0-12.0) % Eosinophils % 1.5 (0.00-5.0) % Basophils % 0.3 (0.0-0.4) % Absolute Granulocytes 7.30 H (1.4-6.9) Basophils # 0.03 (0-0.4) Sodium 141 (137-145) mmol/L Potassium 4.1 (3.5-5.1) mmol/L Chloride 103 (98-107) mmol/L Carbon Dioxide 27 (22-30) mmol/L Anion Gap 14.7 (5-15) MEQ/L BUN 19 H (7-17) mg/dL Creatinine 0.72 (0.52-1.04) mg/dL Estimated GFR > 60.0 ML/MIN Glucose 109 H (74-106) mg/dL Hemoglobin A1c (4.5-6.0) % Calcium 9.6 (8.4-10.2) mg/dL Total Bilirubin 0.40 (0.2-1.3) mg/dL AST 30 (14-36) U/L ALT 55 H (0-35) U/L Alkaline Phosphatase 122 (38-126) U/L Troponin I < 0.012 (0.000-0.034) ng/mL NT-Pro-B Natriuret Pep 21.1 (0-900) pg/mL Serum Total Protein 7.1 (6.3-8.2) g/dL Albumin 4.2 (3.5-5.0) g/dL Influenza Type A Ag (NEGATIVE) Influenza Type B Ag (NEGATIVE) RSV (PCR) (Negative) SARS-CoV-2 (PCR) (NEGATIVE) 05/27/21 05/27/21 05/27/21 Range/Units 01:40 04:35 07:33 WBC (4.0-10.5) K/mm3 RBC (4.1-5.4) M/mm3 Hgb (12.0-16.0) gm/dl Hct (35-47) % MCV (78-100) fl MCH (26-32) pg MCHC (32-36) g/dl RDW (11.5-14.0) % Plt Count (150-450) K/mm3 MPV (7.5-11.0) fl Gran % (36.0-66.0) % Eos # (Auto) (0-0.5) Absolute Lymphs (auto) (1.0-4.6) Absolute Monos (auto) (0.0-1.3) Lymphocytes % (24.0-44.0) % Monocytes % (0.0-12.0) % Eosinophils % (0.00-5.0) % Basophils % (0.0-0.4) % Absolute Granulocytes (1.4-6.9) Basophils # (0-0.4) Sodium (137-145) mmol/L Potassium (3.5-5.1) mmol/L Chloride (98-107) mmol/L Carbon Dioxide (22-30) mmol/L Anion Gap (5-15) MEQ/L BUN (7-17) mg/dL Creatinine (0.52-1.04) mg/dL Estimated GFR ML/MIN Glucose (74-106) mg/dL Hemoglobin A1c (4.5-6.0) % Calcium (8.4-10.2) mg/dL Total Bilirubin (0.2-1.3) mg/dL AST (14-36) U/L ALT (0-35) U/L Alkaline Phosphatase (38-126) U/L Troponin I < 0.012 < 0.012 (0.000-0.034) ng/mL NT-Pro-B Natriuret Pep (0-900) pg/mL Serum Total Protein (6.3-8.2) g/dL Albumin (3.5-5.0) g/dL Influenza Type A Ag NEGATIVE (NEGATIVE) Influenza Type B Ag NEGATIVE (NEGATIVE) RSV (PCR) NEGATIVE (Negative) SARS-CoV-2 (PCR) NEGATIVE (NEGATIVE) 05/27/21 05/27/21 Range/Units 10:58 Unknown WBC (4.0-10.5) K/mm3 RBC (4.1-5.4) M/mm3 Hgb (12.0-16.0) gm/dl Hct (35-47) % MCV (78-100) fl MCH (26-32) pg MCHC (32-36) g/dl RDW (11.5-14.0) % Plt Count (150-450) K/mm3 MPV (7.5-11.0) fl Gran % (36.0-66.0) % Eos # (Auto) (0-0.5) Absolute Lymphs (auto) (1.0-4.6) Absolute Monos (auto) (0.0-1.3) Lymphocytes % (24.0-44.0) % Monocytes % (0.0-12.0) % Eosinophils % (0.00-5.0) % Basophils % (0.0-0.4) % Absolute Granulocytes (1.4-6.9) Basophils # (0-0.4) Sodium (137-145) mmol/L Potassium (3.5-5.1) mmol/L Chloride (98-107) mmol/L Carbon Dioxide (22-30) mmol/L Anion Gap (5-15) MEQ/L BUN (7-17) mg/dL Creatinine (0.52-1.04) mg/dL Estimated GFR ML/MIN Glucose (74-106) mg/dL Hemoglobin A1c 6.48 H (4.5-6.0) % Calcium (8.4-10.2) mg/dL Total Bilirubin (0.2-1.3) mg/dL AST (14-36) U/L ALT (0-35) U/L Alkaline Phosphatase (38-126) U/L Troponin I < 0.012 (0.000-0.034) ng/mL NT-Pro-B Natriuret Pep (0-900) pg/mL Serum Total Protein (6.3-8.2) g/dL Albumin (3.5-5.0) g/dL Influenza Type A Ag (NEGATIVE) Influenza Type B Ag (NEGATIVE) RSV (PCR) (Negative) SARS-CoV-2 (PCR) (NEGATIVE) - Radiology Exams Ordered Rad Exams-Entire Visit: Radiology Procedures Category Date Time Status CAROTID BILATERAL [US] Routine Exams 05/27/[address] ANGIOGRAPHY NECK [CT] Stat Exams 05/27/21 01:31 Completed CTA HEAD W AND/OR WO CONTRAST [CT] Stat Exams 05/27/21 01:31 Completed ECHO W/2D AND DOPPLER [US] Routine Exams 05/27/21 05:23 Taken HEAD WITHOUT CONTRAST [CT] Stat Exams 05/27/21 01:29 Completed MRI BRAIN W & W/O CONTRAST [MRI] Routine Exams 05/27/21 09:01 Ordered - Procedures and Test Procedures and Tests throughout Hospitalization: Therapy Orders & Screens 05/27/21 08:10 Respiratory Therapy Assessment DAILY Comment: Diagnosis: TIA 05/27/21 09:25 EKG ROUTINE Comment: Diagnosis: TIA 05/28/21 05:00 EKG IN AM Comment: Diagnosis: TIA 05/29/21 05:00 EKG IN AM Comment: Diagnosis: TIA - Discharge Disposition: Home, Self-Care Condition: Stable Prescriptions: No Action Lisinopril 10 mg [Zestril 10 MG] 10 mg PO BID Fluticasone/Salmeterol [Advair 250-50 Diskus] 2 puff IH BID Ipratropium/Albuterol Sulfate [Combivent Respimat Inhal [place]] 4 gm IH QID PRN EPINEPHrine [Epipen 0.3 MG] 0.3 mg IM DAILY PRN PRN #1 pack PRN Reason: Allergies Zafirlukast 20 mg [Accolate 20 mg] 10 mg PO BID Metoprolol Succinate 25 mg Xl* [Toprol-Xl 25MG Tablets] 50 mg PO DAILY Fexofenadine HCl [Anna Allergy] 60 mg PO DAILY Follow up with: AMY DONAHUE NP [Primary Care Provider] -
--- NOTE | 2021-05-27 14:26 | XRAY ---
Indication: TIA. History of fibromyalgia. Sagittal, coronal, and axial MRI brain performed using pre and post T1, T2, FLAIR, diffusion, and ADC sequences. 23 cc Dotarem contrast used. Comparison: None Ventriculosulcal pattern appears symmetric. No acute intracranial hemorrhage, abnormal extra-axial fluid collection, or mass effect. Diffusion images are negative for restricted signal. Following gadolinium, there is no abnormal enhancing intra or extra-axial mass. Fourth ventricle is midline without hydrocephalus. 7/8 cranial nerve complex bilaterally symmetric. Normal flow void signal within the major intracerebral circulation. Normal appearing craniocervical junction and sella turcica. Mild mucosal thickening of both maxillary sinuses without fluid leveling. Impression: 1. Negative MRI brain with contrast exam. 2. Incidental bilateral maxillary sinus disease.
[2021-05-27] MEDS: Sodium Chloride 0.9% 500 ML 500 ML IV SCH (21:21)
[2021-05-28] MEDS: Sodium Chloride 0.9% 500 ML 500 ML IV SCH (03:11)
[2021-05-28 05:58] LABS: Risk Ratio 3.5
[2021-05-28] MEDS: DUONEB 0.5-3 MG/3 ml Neb IH PRN (06:56)
[2021-05-28] MEDS: Advair Hfa 115/21 Common canister IH SCH (06:59)
[2021-05-28 07:32] VITALS: BP 113/68; PULSE 73; O2SAT 96
--- NOTE | 2021-05-28 08:15 | PCM.DS ---
Discharge Summary Date of Admission: 05/27/21 05:17 Admitting Physician: ANUSHA SUBRAMANIAN Primary Care Provider: AMY DONAHUE Allergies Allergies codeine [Codeine] Allergy (Mild, Verified 05/27/21 01:06) doxycycline Allergy (Mild, Verified 05/27/21 01:06) Penicillins Allergy (Mild, Verified 05/27/21 01:06) aspirin Allergy (Unknown, Verified 05/27/21 01:06) Difficulty Breathing Patient states she has a sensitivity to aspirin. Hospital Summary - Hospital Course Hospital Course: is a 56 year old female pt of Amy Donahue with morbid obesity, asthma, hx dizziness, GERD, BERGER, HTN, hypokalemia, hx opiate withdrawal, fibromyalgia, seasonal allergies, and chronic back pain who was admitted through ER with TIA sx. She woke up last night not feeling well. Had a hx BPPV previously for a few weeks, but states this was worse, "unreal," with severe counterclockwise spinning that lasted seconds, then slowed and stopped. She couldn't talk for several minutes, and couldn't see initially. Speech and vision returned in several minutes spontaneously, then she asked her to take her to the ER. CTA head/neck was unremarkable. MRI brain was normal. Teleneurology visit was done in ER. Pt was given 1 dose of plavix initially in ER. We discussed ASA vs Plavix today, and aspirin makes her asthma worse, so will send her home on plavix although her MRI head was negative. She will f/u with neurology outpatient. Pt had BERGER and some lingering dizziness yesterday, but is feeling well today. D/c to home today. - Vitals & Intake/Output Vital Signs: Vital Signs Temperature 96.9 F 05/28/21 07:31 Pulse Rate 73 05/28/21 07:31 Respiratory Rate 18 05/28/21 07:31 Blood Pressure 113/68 05/28/21 07:31 O2 Sat by Pulse Oximetry 96 05/28/21 07:31 Intake & Output: Intake & Output 05/25/21 05/26/21 05/27/21 05/28/21 11:59 11:59 11:59 11:59 Intake Total 240 2128 Output Total 1100 Balance 240 1028 Weight 114.7 kg 115.1 kg - Lab Result Diagrams: 05/27/21 01:30 05/27/21 01:30 Lab Results-Last 24 Hrs: Lab Results-Last 24 Hours 05/27/21 05/27/21 05/27/21 Range/Units 07:33 10:58 13:05 Hemoglobin A1c (4.5-6.0) % Troponin I < 0.012 < 0.012 < 0.012 (0.000-0.034) ng/mL Triglycerides (30-150) mg/dL Cholesterol (50-200) mg/dL LDL Cholesterol (30-100) mg/dL HDL Cholesterol (40-60) mg/dL Heart Disease Risk Ratio 05/27/21 05/28/21 Range/Units Unknown 05:13 Hemoglobin A1c 6.48 H (4.5-6.0) % Troponin I (0.000-0.034) ng/mL Triglycerides 137 (30-150) mg/dL Cholesterol 154 (50-200) mg/dL LDL Cholesterol 81 (30-100) mg/dL HDL Cholesterol 44 (40-60) mg/dL Heart Disease Risk Ratio 3.5 - Radiology Exams Ordered Rad Exams-Entire Visit: Radiology Procedures Category Date Time Status CAROTID BILATERAL [US] Routine Exams 05/27/[address] ANGIOGRAPHY NECK [CT] Stat Exams 05/27/21 01:31 Completed CTA HEAD W AND/OR WO CONTRAST [CT] Stat Exams 05/27/21 01:31 Completed ECHO W/2D AND DOPPLER [US] Routine Exams 05/27/21 05:23 Taken HEAD WITHOUT CONTRAST [CT] Stat Exams 05/27/21 01:29 Completed MRI BRAIN W & W/O CONTRAST [MRI] Routine Exams 05/27/21 09:01 Completed - Procedures and Test Procedures and Tests throughout Hospitalization: Therapy Orders & Screens 05/27/21 08:10 Respiratory Therapy Assessment DAILY Comment: Diagnosis: TIA 05/28/21 05:00 EKG IN AM Comment: Diagnosis: TIA 05/29/21 05:00 EKG IN AM Comment: Diagnosis: TIA Discharge Exam General Appearance: no apparent distress, alert, obese Neurologic Exam: oriented x 3, cooperative, other (moves extremities normally, grossly) Eye Exam: eyes nml inspection Ears, Nose, Throat Exam: moist mucous membranes Neck Exam: normal inspection Respiratory Exam: normal breath sounds, lungs clear, No crackles/rales, No rhonchi, No wheezing Cardiovascular Exam: regular rate/rhythm, normal heart sounds, No murmur Back Exam: normal inspection, No CVA tenderness Extremity Exam: normal inspection, No pedal edema, No swelling Skin Exam: normal color, warm, dry, No rash Final Diagnosis/Problem List - Final Discharge Diagnosis/Problem (1) TIA (transient ischemic attack) Current Visit: Yes Status: Acute Assessment & Plan: Possibly - home on plavix as she cannot yennifer asa. F/u with neurology outpatient. Code(s): G45.9 - TRANSIENT CEREBRAL ISCHEMIC ATTACK, UNSPECIFIED (2) Dizziness Current Visit: No Status: Resolved Code(s): R42 - DIZZINESS AND GIDDINESS - Discharge Disposition: Home, Self-Care Condition: Good Prescriptions: New Clopidogrel Bisulfate 75 mg [PLAVIX 75 MG Tablet] 75 mg PO DAILY #30 tablet Continue Lisinopril 10 mg [Zestril 10 MG] 10 mg PO BID Fluticasone/Salmeterol [Advair 250-50 Diskus] 2 puff IH BID Ipratropium/Albuterol Sulfate [Combivent Respimat Inhal [place]] 4 gm IH QID PRN EPINEPHrine [Epipen 0.3 MG] 0.3 mg IM DAILY PRN PRN #1 pack PRN Reason: Allergies Zafirlukast 20 mg [Accolate 20 mg] 10 mg PO BID Metoprolol Succinate 25 mg Xl* [Toprol-Xl 25MG Tablets] 50 mg PO DAILY Fexofenadine HCl [Anna Allergy] 60 mg PO DAILY Follow up with: AMY DONAHUE NP [Primary Care Provider] -
[2021-05-28] MEDS: Toprol Xl 50 MG PO SCH (09:14)
[2021-05-28] MEDS: CLARITIN 10 MG PO SCH (09:14)
[2021-05-28] MEDS: ACCOLATE 20 MG PO SCH (09:14)
[2021-05-28] MEDS: Zestril 10 MG PO SCH (09:14)
[2021-05-28] MEDS ORDERED: Sodium Chloride 0.9% 1000 ML 1,000 ML IV SCH (13:00)
== END 2021-05-28 10:00 | disposition home or self-care (01) ==
LOC: ED 00:36 → MED SURG 05:17
PROVIDERS: ADMIT Family Medicine; ATTEND Family Medicine
DX: G45.9 Transient cerebral ischemic attack, unspecified (principal); R42 Dizziness and giddiness; I10 Essential (primary) hypertension; E87.6 Hypokalemia; J45.909 Unspecified asthma, uncomplicated; E66.9 Obesity, unspecified; Z79.899 Other long term (current) drug therapy; Z20.828 Contact with and (suspected) exposure to other viral communicable diseases
CPT/HCPCS: 0241U; 36000; 36415; 70450; 70496; 70498; 70553; 80053; 80061; 83036; 83721; 83880; 84484; 85025; 93005; 93041; 93268; 93306; 93880; 94640; 94760; 99285; G0378; Q3014; J2060; A9270-GY

== ENCOUNTER 2022-04-08 18:26 | Emergency (ER) | payer OTHER ==
[2022-04-08] MEDS ORDERED: DUONEB 0.5-3 MG/3 ml Neb IH ONE ×2 (19:19→19:25)
[2022-04-08 19:41] LABS: Absolute Neutrophil Ct (ANC) 6.42 x10^3/uL (1.4-6.9); Basophil (Absolute #) 0.05 x10^3/uL (0-0.4); Eosinophil % 2.2 % (0.00-5.0); Eosinophil (Absolute #) 0.23 x10^3/uL (0-0.5); Hematocrit 41.8 % (35-47); Hemoglobin 13.5 g/dL (12.0-16.0); Lymphocyte (Absolute #) 2.88 x10^3/uL (1.0-4.6); Lymphocytes % 27.8 % (24.0-44.0); Mean Cell Volume 95.7 fL (78-100); Mean Corpuscular Hemoglobin 30.9 pg (26-32); Mean Corpuscular Hgb Concent. 32.3 g/dL (32-36); Mean Platelet Volume 8.9 fL (7.5-11.0); Monocyte (Absolute #) 0.75 x10^3/uL (0.0-1.3); Monocytes % 7.2 % (0.0-12.0); Platelet Count 306 x10^3/uL (150-450); Red Blood Count 4.37 x10^6/uL (4.1-5.4); Red Cell Distribution Width 13.6 % (11.5-14.0); White Blood Count 10.4 x10^3/uL (4.0-10.5)
[2022-04-08 19:56] LABS: ALBUMIN 4.3 g/dL (3.5-5.0); ALKALINE PHOSPHATASE 113 U/L (38-126); ANION GAP 11.7 MEQ/L (5-15); BLOOD UREA NITROGEN 19 mg/dL (7-17); CHLORIDE 103 mmol/L (98-107); Carbon Dioxide 26 mmol/L (22-30); Creatinine 1 0.58 mg/dL (0.52-1.04); EST GLOMERULAR FILTRATION RATE > 60.0 ML/MIN; Glucose 127 mg/dL (74-106); Potassium 3.5 mmol/L (3.5-5.1); SGOT/AST 34 U/L (14-36); SGPT/ALT 46 U/L (0-35); SODIUM 137 mmol/L (137-145); Total Protein 7.6 g/dL (6.3-8.2)
--- NOTE | 2022-04-08 19:57 | ERPHSYRPT ---
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 pt states she has some ki nd of enviornmental allergy that is still unknown, but the aggrigate causes these sx. last attack 3 years ago. use of medications at home with no relief. rates 8/10 pain in center of chest that does not radiate. audible wheezes noted Physician History: 57 yo wf w h/o asthma presents w dyspnea X1Hr. Pt has had a mild cough/coryza x 2 wks and was treated for strep w a Zpak the day after Thanksgiving. She has mild mid-sternal chest pain which she describes as sharp wo radiation. Pt states that the pain is 8/10, and nothing makes it better or worse. Fever/N/V/diaphoresis are all denied. Timing/Duration: other (1Hour) Activities at Onset: rest Severity of Dyspnea-Max: moderate Severity of Dyspnea-Current: mild Possible Cause: occasional episodes Modifying Factors: Improves With: nothing Associated Symptoms: denies symptoms, cough, chest pain/discomfort, wheezing, tightness Allergies/Adverse Reactions: codeine [Codeine] Allergy (Mild, Verified 04/08/22 18:29) doxycycline Allergy (Mild, Verified 04/08/22 18:29) Penicillins Allergy (Mild, Verified 04/08/22 18:29) aspirin Allergy (Unknown, Verified 04/08/22 18:29) Difficulty Breathing Patient states she has a sensitivity to aspirin. Home Medications: Lisinopril 10 mg [Zestril 10 MG] 10 mg PO BID 02/28/13 [History] Fluticasone/Salmeterol [Advair 250-50 Diskus] 2 puff IH BID 01/15/15 [History] Ipratropium/Albuterol Sulfate [Combivent Respimat Inhal [place]] 4 gm IH QID PRN 01/27/18 [History] Fexofenadine HCl [Anna Allergy] 60 mg PO DAILY 05/27/21 [History] Metoprolol Succinate 25 mg Xl* [Toprol-Xl 25MG Tablets] 50 mg PO DAILY 05/27/21 [History] Zafirlukast 20 mg [Accolate 20 mg] 10 mg PO BID 05/27/21 [History] Hx Tetanus, Diphtheria Vaccination/Date Given: No Hx Influenza Vaccination/Date Given: No Hx Pneumococcal Vaccination/Date Given: No Immunizations Up to Date: No Travel Risk - International Travel Have you traveled outside of the country in past 3 weeks: No - Coronavirus Screening Are you exhibiting any of the following symptoms?: Yes Symptoms: Shortness of Breath Close contact with a COVID-19 positive Pt in past 14-21 Days: No - Vaccine Status Have you recieved a Covid-19 vaccination: No - Review of Systems Constitutional: No Symptoms Eyes: No Symptoms Ears, Nose, & Throat: No Symptoms, Nose Congestion, Nose Discharge Respiratory: No Symptoms, Cough Cardiac: No Symptoms, Chest Pain Abdominal/Gastrointestinal: No Symptoms Genitourinary Symptoms: No Symptoms Musculoskeletal: No Symptoms Skin: No Symptoms Neurological: No Symptoms Psychological: No Symptoms Endocrine: No Symptoms Hematologic/Lymphatic: No Symptoms Immunological/Allergic: No Symptoms - Past Medical History Pertinent Past Medical History: Yes Neurological History: Migraines, Peripheral Neuropathy ENT History: Other Cardiac History: Hypertension Respiratory History: Asthma, Pneumonia Endocrine Medical History: Hypoglycemia Musculoskeletal History: Fibromyalgia GI Medical History: GERD, Gallbladder Disease, Other History: Other Psycho-Social History: No Pertinent History Female Reproductive Disorders: No Pertinent History Other Medical History: neuropathy. chronic fatigue. acute kidney failure. fibroid cyst in uterous 9 cm. epidural for back pain thru Dr. Sanches, January 2021, May 2021. - Past Surgical History Past Surgical History: Yes Neuro Surgical History: No Pertinent History Cardiac: No Pertinent History Respiratory: No Pertinent History Gastrointestinal: Cholecystectomy Genitourinary: No Pertinent History Musculoskeletal: No Pertinent History Female Surgical History: Dilation & Curettage Other Surgical History: sinus, d & c - Social History Smoking Status: Never smoker Exposure to second hand smoke: No Drug Use: none Patient Lives Alone: No Significant Family History: diabetes, hypertension - Nursing Vital Signs Nursing Vital Signs: Initial Vital Signs Temperature 98.4 F 04/08/22 18:29 Pulse Rate 137 H 04/08/22 18:29 Respiratory Rate 25 H 04/08/22 18:29 Blood Pressure 112/69 04/08/22 18:29 O2 Sat by Pulse Oximetry 93 L 04/08/22 18:29 Pain Scale Pain Intensity 6 Tachy/Borderline sats/Tachypneic - Physical Exam General Appearance: no apparent distress Eye Exam: PERRL/EOMI, eyes nml inspection Ears, Nose, Throat Exam: hearing grossly normal, normal ENT inspection, normal pharynx Neck Exam: normal inspection, non-tender, supple, full range of motion, No Brudzinski, No Kernig's, No meningismus Respiratory Exam: wheezing (Scattered wheezes B w prolonged expirations) Cardiovascular/Chest Exam: tachycardia, No murmur Abdominal/Gastrointestinal Exam: soft, normal bowel sounds, No tenderness Extremity Exam: non-tender, normal range of motion, normal inspection, normal capillary refill, no calf tenderness, no pedal edema Peripheral Pulses Exam: carotid (R): 2+, carotid (L): 2+ Neurologic Exam: alert, oriented x 3, cooperative, carver and checkerer specials II-XII nml as tested, normal mood/affect, nml cerebellar function, nml station & gait, sensation nml, No motor deficits, No sensory deficit Skin Exam: normal color, warm, dry, No rash Lymphatic Exam: No adenopathy SpO2 Interpretation: borderline oxygenation SpO2: 95 O2 Delivery: Room Air - Course Nursing assessment & vital signs reviewed: Yes EKG Interpreted by Me: RATE (Sinus tach/[id number]/Borderline prolonged QTc/Low voltage/Qwaves lead3 and AVF) - Radiology Exams Chest X-ray Interpretation: Interpreted by me (CXR NAD) - CT Exams Chest CT Interpretation: Discussed w/radiologist (CTA of chest/No PE/small HH/JUSTICE) Ordered Tests: Active Orders 24 hr Category Date Time Status EKG-ER Only STAT Care 04/08/22 19:19 Completed CHEST 1 VIEW (PORTABLE) Stat Exams 04/08/22 19:20 Taken CHEST WITH CONTRAST [CT] Stat Exams 04/08/22 20:47 Taken CBC W DIFF Stat Lab 04/08/22 18:45 Completed CMP Stat Lab 04/08/22 18:45 Completed D-DIMER QUANTITATIVE Stat Lab 04/08/22 18:45 Completed NT PRO BNP Stat Lab 04/08/22 18:45 Completed TROPONIN Q4H Lab 04/08/22 18:45 Completed TROPONIN Q4H Lab 04/08/22 22:17 Completed Respiratory Therapy Assessment DAILY RT 04/08/22 19:33 Completed Medication Summary Discontinued Medications Generic Name Dose Route Start Last Admin Trade Name Sahil PRN Reason Stop Dose Admin Albuterol/Ipratropium 3 ml 04/08/22 19:19 04/08/22 19:27 Ipratropium/Albuterol Sulfate 3 Ml Ampul.Neb IH 04/08/22 19:20 3 ml STAT ONE Administration Albuterol/Ipratropium Confirm 04/08/22 19:25 Ipratropium/Albuterol Sulfate 3 Ml Ampul.Neb Administered 04/08/22 19:26 Dose 3 ml IH .STK-MED ONE Methylprednisolone Sodium 0 mg 04/08/22 22:47 04/08/22 22:52 Succinate 125 mg/ Sterile IV 04/08/22 22:48 125 mg Water 2 ml STAT ONE Administration Lab/Rad Data: Laboratory Result Diagrams 04/08/22 18:45 04/08/22 18:45 Laboratory Results 04/08/22 04/08/22 04/08/22 Range/Units 22:17 19:35 18:45 WBC (4.0-10.5) x10^3/uL RBC (4.1-5.4) x10^6/uL Hgb (12.0-16.0) g/dL Hct (35-47) % MCV (78-100) fL MCH (26-32) pg MCHC (32-36) g/dL RDW (11.5-14.0) % Plt Count (150-450) x10^3/uL MPV (7.5-11.0) fL Gran % (36.0-66.0) % Immature Gran % (Auto) (0.00-0.4) % Nucleat RBC Rel Count (0.00-0.1) % Eos # (Auto) (0-0.5) x10^3/uL Immature Gran # (Auto) (0.00-0.03) x10^3u/L Absolute Lymphs (auto) (1.0-4.6) x10^3/uL Absolute Monos (auto) (0.0-1.3) x10^3/uL Absolute Nucleated RBC (0.00-0.01) x10^3u/L Lymphocytes % (24.0-44.0) % Monocytes % (0.0-12.0) % Eosinophils % (0.00-5.0) % Basophils % (0.0-0.4) % Absolute Granulocytes (1.4-6.9) x10^3/uL Basophils # (0-0.4) x10^3/uL D-Dimer 0.58 H (0.0-0.50) mg/L Sodium (137-145) mmol/L Potassium (3.5-5.1) mmol/L Chloride (98-107) mmol/L Carbon Dioxide (22-30) mmol/L Anion Gap (5-15) MEQ/L BUN (7-17) mg/dL Creatinine (0.52-1.04) mg/dL Estimated GFR ML/MIN Glucose (74-106) mg/dL Calcium (8.4-10.2) mg/dL Total Bilirubin (0.2-1.3) mg/dL AST (14-36) U/L ALT (0-35) U/L Alkaline Phosphatase (38-126) U/L Troponin I < 0.012 (0.000-0.034) ng/mL NT-Pro-B Natriuret Pep (0-900) pg/mL Serum Total Protein (6.3-8.2) g/dL Albumin (3.5-5.0) g/dL Influenza Type A Ag NEGATIVE (NEGATIVE) Influenza Type B Ag NEGATIVE (NEGATIVE) RSV (PCR) NEGATIVE (Negative) SARS-CoV-2 (PCR) NEGATIVE (NEGATIVE) 04/08/22 04/08/22 04/08/22 Range/Units 18:45 18:45 18:45 WBC (4.0-10.5) x10^3/uL RBC (4.1-5.4) x10^6/uL Hgb (12.0-16.0) g/dL Hct (35-47) % MCV (78-100) fL MCH (26-32) pg MCHC (32-36) g/dL RDW (11.5-14.0) % Plt Count (150-450) x10^3/uL MPV (7.5-11.0) fL Gran % (36.0-66.0) % Immature Gran % (Auto) (0.00-0.4) % Nucleat RBC Rel Count (0.00-0.1) % Eos # (Auto) (0-0.5) x10^3/uL Immature Gran # (Auto) (0.00-0.03) x10^3u/L Absolute Lymphs (auto) (1.0-4.6) x10^3/uL Absolute Monos (auto) (0.0-1.3) x10^3/uL Absolute Nucleated RBC (0.00-0.01) x10^3u/L Lymphocytes % (24.0-44.0) % Monocytes % (0.0-12.0) % Eosinophils % (0.00-5.0) % Basophils % (0.0-0.4) % Absolute Granulocytes (1.4-6.9) x10^3/uL Basophils # (0-0.4) x10^3/uL D-Dimer (0.0-0.50) mg/L Sodium 137 (137-145) mmol/L Potassium 3.5 (3.5-5.1) mmol/L Chloride 103 (98-107) mmol/L Carbon Dioxide 26 (22-30) mmol/L Anion Gap 11.7 (5-15) MEQ/L BUN 19 H (7-17) mg/dL Creatinine 0.58 (0.52-1.04) mg/dL Estimated GFR > 60.0 ML/MIN Glucose 127 H (74-106) mg/dL Calcium 9.0 (8.4-10.2) mg/dL Total Bilirubin 0.40 (0.2-1.3) mg/dL AST 34 (14-36) U/L ALT 46 H (0-35) U/L Alkaline Phosphatase 113 (38-126) U/L Troponin I < 0.012 (0.000-0.034) ng/mL NT-Pro-B Natriuret Pep 28.6 (0-900) pg/mL Serum Total Protein 7.6 (6.3-8.2) g/dL Albumin 4.3 (3.5-5.0) g/dL Influenza Type A Ag (NEGATIVE) Influenza Type B Ag (NEGATIVE) RSV (PCR) (Negative) SARS-CoV-2 (PCR) (NEGATIVE) 04/08/22 Range/Units 18:45 WBC 10.4 (4.0-10.5) x10^3/uL RBC 4.37 (4.1-5.4) x10^6/uL Hgb 13.5 (12.0-16.0) g/dL Hct 41.8 (35-47) % MCV 95.7 (78-100) fL MCH 30.9 (26-32) pg MCHC 32.3 (32-36) g/dL RDW 13.6 (11.5-14.0) % Plt Count 306 (150-450) x10^3/uL MPV 8.9 (7.5-11.0) fL Gran % 62.0 (36.0-66.0) % Immature Gran % (Auto) 0.3 (0.00-0.4) % Nucleat RBC Rel Count 0.0 (0.00-0.1) % Eos # (Auto) 0.23 (0-0.5) x10^3/uL Immature Gran # (Auto) 0.03 (0.00-0.03) x10^3u/L Absolute Lymphs (auto) 2.88 (1.0-4.6) x10^3/uL Absolute Monos (auto) 0.75 (0.0-1.3) x10^3/uL Absolute Nucleated RBC 0.00 (0.00-0.01) x10^3u/L Lymphocytes % 27.8 (24.0-44.0) % Monocytes % 7.2 (0.0-12.0) % Eosinophils % 2.2 (0.00-5.0) % Basophils % 0.5 (0.0-0.4) % Absolute Granulocytes 6.42 (1.4-6.9) x10^3/uL Basophils # 0.05 (0-0.4) x10^3/uL D-Dimer (0.0-0.50) mg/L Sodium (137-145) mmol/L Potassium (3.5-5.1) mmol/L Chloride (98-107) mmol/L Carbon Dioxide (22-30) mmol/L Anion Gap (5-15) MEQ/L BUN (7-17) mg/dL Creatinine (0.52-1.04) mg/dL Estimated GFR ML/MIN Glucose (74-106) mg/dL Calcium (8.4-10.2) mg/dL Total Bilirubin (0.2-1.3) mg/dL AST (14-36) U/L ALT (0-35) U/L Alkaline Phosphatase (38-126) U/L Troponin I (0.000-0.034) ng/mL NT-Pro-B Natriuret Pep (0-900) pg/mL Serum Total Protein (6.3-8.2) g/dL Albumin (3.5-5.0) g/dL Influenza Type A Ag (NEGATIVE) Influenza Type B Ag (NEGATIVE) RSV (PCR) (Negative) SARS-CoV-2 (PCR) (NEGATIVE) - Progress Air Movement: poor Progress Note: 04/08/22 22:48 Duoneb x1 w marked improvement 125mg IV Solumedrol 04/08/22 23:29 Lungs CTA on serial exams after Duoneb Counseled pt/family regarding: lab results, diagnosis, need for follow-up, rad results - Departure Departure Disposition: Home Clinical Impression: Exacerbation of asthma Condition: Stable Critical Care Time: No Referrals: AMY MITCHELL NP [Primary Care Provider] - Follow up/PCP as directed Instructions: Asthma, Adult (DC) Additional Instructions: Continue current asthma treatment Follow up with your family MD in 1-2 days Return to ER for increasing shortness of breath or temperature greater than 100.5
[2022-04-08 20:17] LABS: INFLUENZA A NEGATIVE (NEGATIVE); INFLUENZA B NEGATIVE (NEGATIVE); RESPIRATORY SYNCTIAL VIRUS NEGATIVE (Negative); SARS-CoV-2 Xpert Express NEGATIVE (NEGATIVE)
[2022-04-08 22:10] VITALS: BP 166/87
[2022-04-08 22:20] VITALS: O2SAT 95
[2022-04-08] MEDS ORDERED: solu-MEDROL 125 MG, Sterile H2O 10 ml 2 ML IV ONE ×2 (22:47)
[2022-04-08 22:55] VITALS: PULSE 111
--- NOTE | 2022-04-09 08:40 | XRAY ---
Indication: Short of breath and elevated d-dimer. Pulmonary was. Multiple contiguous axial images obtained through the chest using 100 cc Isovue 370 contrast and PE protocol. Comparison: March 11, 2017 There is suboptimal opacification of the pulmonary arteries limiting evaluation of the more distal lobar and segmental branches. No obvious pulmonary embolus. Heart is not enlarged. Aorta is normal in course and caliber. Stable chunky mediastinal and right hilar calcified nodes. No pathologic mediastinal/hilar lymphadenopathy. Again small hiatal hernia. Lungs inflated again with minimal bibasilar fibrosis/scarring. No suspicious pulmonary mass, infiltrate, or effusion. Bony thorax intact again with minimal degenerative changes throughout the spine. Limited upper abdomen again demonstrates fatty liver and tiny splenic calcified granulomas. Impression: 1. Pulmonary embolus evaluation limited by suboptimal contrast opacification. No obvious pulmonary embolus. 2. Again bibasilar fibrosis/scarring, small hiatal hernia, fatty liver, and old granulomatous disease. 3. Remaining CT chest with contrast exam is negative.
--- NOTE | 2022-04-09 08:42 | XRAY ---
Indication: Short of breath. Comparison: February 07, 2018 Portable chest remains inflated and clear. Heart not enlarged. Bony thorax intact again with minimal degenerative changes. No new/acute findings.
== END 2022-04-08 23:08 | disposition home or self-care (01) ==
LOC: ED 18:26
DX: J45.901 Unspecified asthma with (acute) exacerbation (principal); R06.00 Dyspnea, unspecified; R07.89 Other chest pain; R05.9 Cough, unspecified; I10 Essential (primary) hypertension; Z79.899 Other long term (current) drug therapy; Z28.310 Unvaccinated for COVID-19; Z20.828 Contact with and (suspected) exposure to other viral communicable diseases
CPT/HCPCS: 0241U; 36415; 71045; 71260; 80053; 83880; 84484; 85025; 85379; 93005; 94640; 96374; 99284; J2930; A9270-GY

== ENCOUNTER 2022-10-17 15:45 | Emergency (ER) | payer OTHER ==
[2022-10-17] MEDS ORDERED: VISTARIL 100MG/2ML IM STA (16:57)
--- NOTE | 2022-10-17 17:00 | ERPHSYRPT ---
- History of Present Illness Time Seen by Provider: 10/17/22 16:58 Source: patient Exam Limitations: no limitations Patient Subjective Stated Complaint: Pt reports she has been experiencing vertigo for approx 2 months. She has been taking multiple rounds of steroids and antibiotics. Last night dizziness got worse and has continued to worsen today. Triage Nursing Assessment: Pt alert and oriented x3. No apparent respiratory distress. Ambulated to ED cot without difficulty. BETO. Physician History: Pt reports she has been experiencing vertigo for approx 2 months. She has been taking multiple rounds of steroids and antibiotics. Last night dizziness got worse and has continued to worsen today. Timing/Duration: gradual onset Severity: mild Prearrival Treatment: prescription meds Modifying Factors: Improves With: activity Associated Symptoms: denies symptoms Allergies/Adverse Reactions: codeine [Codeine] Allergy (Mild, Verified 10/17/22 16:19) doxycycline Allergy (Mild, Verified 10/17/22 16:19) Penicillins Allergy (Mild, Verified 10/17/22 16:19) aspirin Allergy (Unknown, Verified 10/17/22 16:19) Difficulty Breathing Patient states she has a sensitivity to aspirin. Home Medications: Lisinopril 10 mg [Zestril 10 MG] 10 mg PO BID 02/28/13 [History] Fluticasone/Salmeterol [Advair 250-50 Diskus] 2 puff IH BID 01/15/15 [History] Ipratropium/Albuterol Sulfate [Combivent Respimat Inhal [place]] 4 gm IH QID PRN 01/27/18 [History] Fexofenadine HCl [Anna Allergy] 60 mg PO DAILY 05/27/21 [History] Metoprolol Succinate 25 mg Xl* [Toprol-Xl 25MG Tablets] 50 mg PO DAILY 05/27/21 [History] Zafirlukast 20 mg [Accolate 20 mg] 10 mg PO BID 05/27/21 [History] Hx Tetanus, Diphtheria Vaccination/Date Given: No Hx Influenza Vaccination/Date Given: No Hx Pneumococcal Vaccination/Date Given: No Travel Risk - International Travel Have you traveled outside of the country in past 3 weeks: No - Coronavirus Screening Are you exhibiting any of the following symptoms?: No Close contact with a COVID-19 positive Pt in past 14-21 Days: No - Vaccine Status Have you recieved a Covid-19 vaccination: No - Review of Systems Constitutional: No Fever, No Chills Eyes: No Symptoms Ears, Nose, & Throat: No Symptoms Respiratory: No Cough, No Dyspnea Cardiac: No Chest Pain, No Edema, No Syncope Abdominal/Gastrointestinal: No Abdominal Pain, No Nausea, No Vomiting, No Diarrhea Genitourinary Symptoms: No Dysuria Musculoskeletal: No Back Pain, No Neck Pain Skin: No Rash Neurological: Dizziness, No Focal Weakness, No Headache, No Sensory Changes Psychological: No Symptoms Endocrine: No Symptoms All Other Systems: Reviewed and Negative - Past Medical History Pertinent Past Medical History: Yes Neurological History: Migraines, Peripheral Neuropathy ENT History: Other Cardiac History: Hypertension Respiratory History: Asthma, Pneumonia Endocrine Medical History: Hypoglycemia Musculoskeletal History: Fibromyalgia GI Medical History: GERD, Gallbladder Disease, Other History: Other Psycho-Social History: No Pertinent History Female Reproductive Disorders: No Pertinent History Other Medical History: neuropathy. chronic fatigue. acute kidney failure. fibroid cyst in uterous 9 cm. epidural for back pain thru Dr. Sanches, January 2021, May 2021. - Past Surgical History Past Surgical History: Yes Neuro Surgical History: No Pertinent History Cardiac: No Pertinent History Respiratory: No Pertinent History Gastrointestinal: Cholecystectomy Genitourinary: No Pertinent History Musculoskeletal: No Pertinent History Female Surgical History: Dilation & Curettage Other Surgical History: sinus, d & c - Social History Smoking Status: Never smoker Exposure to second hand smoke: No Drug Use: none Patient Lives Alone: No Significant Family History: diabetes, hypertension - Nursing Vital Signs Nursing Vital Signs: Initial Vital Signs Temperature 97.8 F 10/17/22 16:18 Pulse Rate 108 H 10/17/22 16:18 Respiratory Rate 19 10/17/22 16:18 Blood Pressure 125/80 10/17/22 16:18 O2 Sat by Pulse Oximetry 97 10/17/22 16:18 Pain Scale Pain Intensity 0 - Physical Exam General Appearance: no apparent distress, alert Eye Exam: bilateral eye: PERRL, EOMI Nasal Exam: normal inspection Throat Exam: pharynx normal, moist mucus membranes, No tonsillar exudate Neck Exam: supple Cardiovascular/Respiratory Exam: normal breath sounds, regular rate/rhythm Abdominal Exam: non-tender, soft Neurologic Exam: alert, oriented x 3, sensation nml, No motor deficits Skin Exam: normal color, warm, dry SpO2: 97 - Course Nursing assessment & vital signs reviewed: Yes Ordered Tests: Medication Summary Generic Name Dose Route Start Last Admin Trade Name Sahil PRN Reason Stop Dose Admin Hydroxyzine HCl 50 mg 10/17/22 16:57 Hydroxyzine Hcl 100 Mg/2 Ml Vial IM 10/17/22 16:58 ONCE STA - Progress Progress: improved Counseled pt/family regarding: diagnosis, need for follow-up - Departure Departure Disposition: Home Clinical Impression: Vertigo Condition: Stable Critical Care Time: No Referrals: AMY MITCHELL, [employer] TECHNOLOGIST [Primary Care Provider] - Follow up/PCP as directed Instructions: Vertigo (a Type of Dizziness) (DC) Additional Instructions: Discharge/Care Plan ASHLEY YOUSSEF was seen on 10/17/22 in the Emergency Room. The patient was counseled regarding Diagnosis,Lab results, Imaging studies, need for follow up and when to return to the Emergency Room. Prescriptions given: Discharge Note I have spoken with the patient and/or caregivers. I have explained the patient's condition, diagnosis and treatment plan based on the information available to me at this time. I have answered the patient's and/or caregiver's questions and addressed any concerns. The patient and/or caregivers have as good understanding of the patient's diagnosis, condition and treatment plan as can be expected at this point. The vital signs have been stable. The patient's condition is stable and appropriate for discharge from the emergency department. The patient will pursue further outpatient evaluation with the primary care physician or other designated or consulting physician as outlined in the discharge instructions. The patient and/or caregivers are agreeable to this plan of care and follow-up instructions have been explained in detail. The patient and/or caregivers have received these instruction. The patient/and or caregivers are aware that any significant change in condition or worsening of symptoms should prompt an immediate return to this or the closest emergency department or call 911. ASHLEY YOUSSEF was seen on 10/17/22 n the Emergency Room. At that time you were treated for an emergent condition, during your visit Laboratory, Radiology and/or other procedures may have been ordered. It is very important that you follow-up with your Primary Care Physician AMY MITCHELL within the next 24-48 hours to review your Emergency Room visit and the final results of testing that was ordered. Some test results such as Urine Cultures, Blood Cultures, and other cultures if ordered will not be finalized for 24-48 hours. If you do not have a Primary Care Provider please call the medical records department at [phone] ext [phone] to obtain a copy of your results or you may sign into our patient portal to obtain these results by visiting us @ [email or web address] and completing the following steps: 1. Click on the Patient Portal link 2. Click the Patient Self Enrollment Link to complete the enrollment form and entering your 3. Once the enrollment form is completed you will receive an email with a temporary ID and password at the email address you provided. 4. Next choose a user name and password. Your user name must be at least 4 characters long and your password must be at least 4 characters long. 5. Choose a security question from the list and provide your answer to the question. If you already have signed into the Health Portal you may access your Health Care Information 23/11 by the following steps: 1. Login to our website @ [email or web address] 2. Enter your original user name and password. FAQS The [facility] Health Portal is an online tool that contains your Lab Results, Radiology Reports, Visit History, Discharge Instructions and Health Summary Lab and Radiology Results will not be available for 72 hours on the portal. The Portal is a secure site, passwords are encryted and URLs are re-written so they cannot be copied and pasted. You and authorized family members are the only ones who can access your Portal. Also there is a timeout feature that protects your information if you leave the Portal page open. If you have technical difficulty please use the Contact Us link on the page this will allow you to submit any questions you have regarding the Portal or you may contact the Medical Record Department at [phone] ext [phone].
[2022-10-17] MEDS ORDERED: VISTARIL 100MG/2ML IM ONE (17:04)
[2022-10-17 17:23] VITALS: BP 113/81; PULSE 91; O2SAT 95
== END 2022-10-17 17:29 | disposition home or self-care (01) ==
LOC: ED 15:45
DX: R42 Dizziness and giddiness (principal); I10 Essential (primary) hypertension; Z79.899 Other long term (current) drug therapy; Z28.310 Unvaccinated for COVID-19
CPT/HCPCS: 96372; 99282; J3410

== ENCOUNTER 2022-10-26 10:21 | Emergency (ER) | payer OTHER ==
--- NOTE | 2022-10-26 10:28 | ERPHSYRPT ---
- History of Present Illness Time Seen by Provider: 10/26/22 10:28 Source: patient, family Exam Limitations: no limitations Physician History: This is a morbidly obese 57-year-old white female patient of nurse practitioner Godfrey who has been having chronic vertigo since August 2022. She denies head injury. She has been treated in the last 2+ months for sinus infection and ear infection with at least 3 rounds of antibiotics without significant benefit for it. She is on a scopolamine patch but this medication does not appear to be helping her much per her report. Patient denies chest pain. Patient denies shortness of breath. She has no abdominal pain. Patient is to see an qual research manager but she does not have the appointment date or time yet. She has not seen a neurologist for this. She has never had episodes like this in the past. Timing/Duration: week(s) (Since August 2022) Severity: moderate Character of Deficits: none Deficits: no difficulties Baseline/Normal Cognition: alert oriented x 3 Current Cognition: alert oriented x 3 Baseline Gait: walks w/o assistance Associated Symptoms: denies symptoms Allergies/Adverse Reactions: codeine [Codeine] Allergy (Mild, Verified 10/26/22 10:42) doxycycline Allergy (Mild, Verified 10/26/22 10:42) Penicillins Allergy (Mild, Verified 10/26/22 10:42) aspirin Allergy (Unknown, Verified 10/26/22 10:42) Difficulty Breathing Patient states she has a sensitivity to aspirin. Home Medications: Lisinopril 10 mg [Zestril 10 MG] 10 mg PO BID 02/28/13 [History] Fluticasone/Salmeterol [Advair 250-50 Diskus] 2 puff IH BID 01/15/15 [History] Ipratropium/Albuterol Sulfate [Combivent Respimat Inhal Moncure] 4 gm IH QID PRN 01/27/18 [History] Fexofenadine HCl [Anna Allergy] 60 mg PO DAILY 05/27/21 [History] Metoprolol Succinate 25 mg Xl* [Toprol-Xl 25MG Tablets] 50 mg PO DAILY 05/27/21 [History] Zafirlukast 20 mg [Accolate 20 mg] 10 mg PO BID 05/27/21 [History] Hx Tetanus, Diphtheria Vaccination/Date Given: No Hx Influenza Vaccination/Date Given: No Hx Pneumococcal Vaccination/Date Given: No Travel Risk - International Travel Have you traveled outside of the country in past 3 weeks: No - Coronavirus Screening Are you exhibiting any of the following symptoms?: No Close contact with a COVID-19 positive Pt in past 14-21 Days: No - Vaccine Status Have you recieved a Covid-19 vaccination: No - Review of Systems Constitutional: No Symptoms Eyes: No Symptoms Ears, Nose, & Throat: No Symptoms Respiratory: No Symptoms Cardiac: No Symptoms Abdominal/Gastrointestinal: No Symptoms Genitourinary Symptoms: No Symptoms Musculoskeletal: No Symptoms Skin: No Symptoms Neurological: Dizziness Psychological: No Symptoms Endocrine: No Symptoms Hematologic/Lymphatic: No Symptoms Immunological/Allergic: No Symptoms All Other Systems: Reviewed and Negative - Past Medical History Pertinent Past Medical History: Yes Neurological History: Migraines, Peripheral Neuropathy ENT History: Other Cardiac History: Hypertension Respiratory History: Asthma, Pneumonia Endocrine Medical History: Hypoglycemia Musculoskeletal History: Fibromyalgia GI Medical History: GERD, Gallbladder Disease, Other History: Other Psycho-Social History: No Pertinent History Female Reproductive Disorders: No Pertinent History Other Medical History: neuropathy. chronic fatigue. acute kidney failure. fibroid cyst in uterous 9 cm. epidural for back pain thru Dr. Sanches, January 2021, May 2021. - Past Surgical History Past Surgical History: Yes Neuro Surgical History: No Pertinent History Cardiac: No Pertinent History Respiratory: No Pertinent History Gastrointestinal: Cholecystectomy Genitourinary: No Pertinent History Musculoskeletal: No Pertinent History Female Surgical History: Dilation & Curettage Other Surgical History: sinus, d & c - Social History Smoking Status: Never smoker Exposure to second hand smoke: No Drug Use: none Patient Lives Alone: No Significant Family History: diabetes, hypertension - Nursing Vital Signs Nursing Vital Signs: Initial Vital Signs Pulse Rate 110 H 10/26/22 10:41 Respiratory Rate 18 10/26/22 10:41 Blood Pressure 137/85 10/26/22 10:41 O2 Sat by Pulse Oximetry 97 10/26/22 10:41 Pain Scale Pain Intensity 0 - Gaurang Coma Scale Best Eye Response ([place]): (4) open spontaneously Best Verbal Response ([place]): (5) oriented Best Motor Response ([place]): (6) obeys commands Gaurang Total: 15 - Physical Exam General Appearance: no apparent distress, alert, anxiety, obese Eye Exam: bilateral eye: normal inspection, PERRL, EOMI Ears, Nose, Throat Exam: normal ENT inspection, moist mucous membranes Neck Exam: normal inspection, non-tender, supple, full range of motion Respiratory: normal breath sounds, lungs clear, airway intact, No chest tenderness, No respiratory distress Cardiovascular: regular rate/rhythm, normal heart sounds, normal peripheral pulses Gastrointestinal: soft, normal bowel sounds, No tenderness Pelvic Exam: not done Rectal Exam: not done Back Exam: normal inspection, normal range of motion, No CVA tenderness, No vertebral tenderness Extremity Exam: normal inspection, normal range of motion, pelvis stable Mental Status: alert, oriented x 3, 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 Exam: normal hearing, normal speech, PERRL, tongue midline Coordination/Gait: normal finger to nose, normal gait, normal cerebellar function Motor/Sensory: no motor deficit, no sensory deficit, no pronator drift Skin Exam: normal color, warm, dry O2 Delivery: Room Air - Course Nursing assessment & vital signs reviewed: Yes EKG Interpreted by Me: RATE (96), Sinus Rhythm, NORMAL AXIS, NORMAL INTERVALS, NORMAL QRS, NORMAL ST-T, Other (No evidence for acute ischemia on today's twelve-lead EKG.) Ordered Tests: Active Orders 24 hr Category Date Time Status Separating Machine Operator STAT Care 10/26/22 11:01 Active EKG-ER Only STAT Care 10/26/22 11:00 Active IV Insertion STAT Care 10/26/22 11:00 Active HEAD WITHOUT CONTRAST [CT] Stat Exams 10/26/22 11:01 Completed CBC W DIFF Stat Lab 10/26/22 11:00 Completed CMP Stat Lab 10/26/22 11:00 Completed MAGNESIUM Stat Lab 10/26/22 11:00 Completed TROPONIN Q4H Lab 10/26/22 11:00 Completed TROPONIN Q4H Lab 10/26/22 11:00 Completed TROPONIN Q4H Lab 10/26/22 19:00 Ordered UA W/RFX UR CULTURE Stat Lab 10/26/22 12:53 Completed Lab/Rad Data: Laboratory Result Diagrams 10/26/22 11:00 10/26/22 11:00 Laboratory Results 10/26/22 10/26/22 10/26/22 Range/Units 12:53 11:00 11:00 WBC (4.0-10.5) x10^3/uL RBC (4.1-5.4) x10^6/uL Hgb (12.0-16.0) g/dL Hct (35-47) % MCV (78-100) fL MCH (26-32) pg MCHC (32-36) g/dL RDW (11.5-14.0) % Plt Count (150-450) x10^3/uL MPV (7.5-11.0) fL Gran % (36.0-66.0) % Immature Gran % (Auto) (0.00-0.4) % Nucleat RBC Rel Count (0.00-0.1) % Eos # (Auto) (0-0.5) x10^3/uL Immature Gran # (Auto) (0.00-0.03) x10^3u/L Absolute Lymphs (auto) (1.0-4.6) x10^3/uL Absolute Monos (auto) (0.0-1.3) x10^3/uL Absolute Nucleated RBC (0.00-0.01) x10^3u/L Lymphocytes % (24.0-44.0) % Monocytes % (0.0-12.0) % Eosinophils % (0.00-5.0) % Basophils % (0.0-0.4) % Absolute Granulocytes (1.4-6.9) x10^3/uL Basophils # (0-0.4) x10^3/uL Sodium 136 L (137-145) mmol/L Potassium 5.9 H (3.5-5.1) mmol/L Chloride 104 (98-107) mmol/L Carbon Dioxide 23 (22-30) mmol/L Anion Gap 14.9 (5-15) MEQ/L BUN 13 (7-17) mg/dL Creatinine 0.51 L (0.52-1.04) mg/dL Estimated GFR > 60.0 ML/MIN Glucose 121 H (74-106) mg/dL Calcium 9.1 (8.4-10.2) mg/dL Magnesium 2.3 (1.6-2.3) mg/dL Total Bilirubin 1.10 (0.2-1.3) mg/dL AST 57 H (14-36) U/L ALT 52 H (0-35) U/L Alkaline Phosphatase 77 (38-126) U/L Troponin I 0.013 < 0.012 (0.000-0.034) ng/mL Serum Total Protein 8.1 (6.3-8.2) g/dL Albumin 4.4 (3.5-5.0) g/dL Urine Color Yellow (Yellow) Urine Appearance Clear (Clear) Urine pH 6.5 (4.6-8.0) Ur Specific Howard <=1.005 (1.005-1.030) Urine Protein Negative (Negative) Urine Glucose (UA) Negative (Negative) mg/dL Urine Ketones Negative (Negative) Urine Blood Negative (Negative) Urine Nitrite Negative (Negative) Urine Bilirubin Negative (Negative) Urine Urobilinogen 0.2 (0.2) mg/dL Ur Leukocyte Esterase Negative (Negative) U Hyaline Cast (Auto) NONE SEEN (0-2) /LPF Urine Microscopic RBC 0-2 (0-5) /HPF Urine Microscopic WBC 0-2 (0-5) /HPF Ur Epithelial Cells None Seen (None Seen) /HPF Urine Bacteria None Seen (None Seen) /HPF Urine Culture Reflexed NO (NO) 10/26/22 Range/Units 11:00 WBC 8.4 (4.0-10.5) x10^3/uL RBC 4.46 (4.1-5.4) x10^6/uL Hgb 13.7 (12.0-16.0) g/dL Hct 43.0 (35-47) % MCV 96.4 (78-100) fL MCH 30.7 (26-32) pg MCHC 31.9 L (32-36) g/dL RDW 14.6 H (11.5-14.0) % Plt Count 251 (150-450) x10^3/uL MPV 8.6 (7.5-11.0) fL Gran % 65.6 (36.0-66.0) % Immature Gran % (Auto) 0.4 (0.00-0.4) % Nucleat RBC Rel Count 0.0 (0.00-0.1) % Eos # (Auto) 0.15 (0-0.5) x10^3/uL Immature Gran # (Auto) 0.03 (0.00-0.03) x10^3u/L Absolute Lymphs (auto) 2.04 (1.0-4.6) x10^3/uL Absolute Monos (auto) 0.63 (0.0-1.3) x10^3/uL Absolute Nucleated RBC 0.00 (0.00-0.01) x10^3u/L Lymphocytes % 24.3 (24.0-44.0) % Monocytes % 7.5 (0.0-12.0) % Eosinophils % 1.8 (0.00-5.0) % Basophils % 0.4 (0.0-0.4) % Absolute Granulocytes 5.52 (1.4-6.9) x10^3/uL Basophils # 0.03 (0-0.4) x10^3/uL Sodium (137-145) mmol/L Potassium (3.5-5.1) mmol/L Chloride (98-107) mmol/L Carbon Dioxide (22-30) mmol/L Anion Gap (5-15) MEQ/L BUN (7-17) mg/dL Creatinine (0.52-1.04) mg/dL Estimated GFR ML/MIN Glucose (74-106) mg/dL Calcium (8.4-10.2) mg/dL Magnesium (1.6-2.3) mg/dL Total Bilirubin (0.2-1.3) mg/dL AST (14-36) U/L ALT (0-35) U/L Alkaline Phosphatase (38-126) U/L Troponin I (0.000-0.034) ng/mL Serum Total Protein (6.3-8.2) g/dL Albumin (3.5-5.0) g/dL Urine Color (Yellow) Urine Appearance (Clear) Urine pH (4.6-8.0) Ur Specific Howard (1.005-1.030) Urine Protein (Negative) Urine Glucose (UA) (Negative) mg/dL Urine Ketones (Negative) Urine Blood (Negative) Urine Nitrite (Negative) Urine Bilirubin (Negative) Urine Urobilinogen (0.2) mg/dL Ur Leukocyte Esterase (Negative) U Hyaline Cast (Auto) (0-2) /LPF Urine Microscopic RBC (0-5) /HPF Urine Microscopic WBC (0-5) /HPF Ur Epithelial Cells (None Seen) /HPF Urine Bacteria (None Seen) /HPF Urine Culture Reflexed (NO) - Progress Progress: improved, re-examined Progress Note: 10/26/22 13:[address] scan shows no acute intracranial abnormality. This study was interpreted by the radiologist and I reviewed the impression. This patient's medical issue is 1 of moderate complexity. The level complexity and the work-up performed is based on the review of the patient's past medical history, review the patient's medication list, review of the patient's drug allergy list, history of present illness and physical findings on examination. This work-up includes CT scan of the head, twelve-lead EKG, urinalysis, CBC, CMP, troponin level. I reviewed the results of the studies and the patient does not have any acute or emergent medical issue at this time based on the work-up performed. Patient is to follow-up with her primary care provider for further evaluation and management Counseled pt/family regarding: lab results, diagnosis, need for follow-up, rad results Medical Desision Making - Diagnostic Testing Diagnostic test were ordered, analyzed, and reviewed by me: Yes Radiological Interpretation: Reviewed by me, Teleradiologist Report - Risk of complications Low Risk: Low risk of morbidity from additional dx testing or treatment - Departure Departure Disposition: Home Clinical Impression: Chronic vertigo Condition: Stable Critical Care Time: No Referrals: AMY MITCHELL NP [Primary Care Provider] - Follow up/PCP as directed Additional Instructions: Take your medications as prescribed. Call your primary care provider today, 10/26/2022 to make arrangements for follow-up and referral to ENT and neurologist if indicated.
[2022-10-26 11:10] LABS: Absolute Neutrophil Ct (ANC) 5.52 x10^3/uL (1.4-6.9); BASOPHIL % 0.4 % (0.0-0.4); Basophil (Absolute #) 0.03 x10^3/uL (0-0.4); Eosinophil % 1.8 % (0.00-5.0); Eosinophil (Absolute #) 0.15 x10^3/uL (0-0.5); Hemoglobin 13.7 g/dL (12.0-16.0); IMMATURE GRAN # 0.03 x10^3u/L (0.00-0.03); IMMATURE GRAN % 0.4 % (0.00-0.4); Lymphocyte (Absolute #) 2.04 x10^3/uL (1.0-4.6); Lymphocytes % 24.3 % (24.0-44.0); Mean Cell Volume 96.4 fL (78-100); Mean Corpuscular Hemoglobin 30.7 pg (26-32); Mean Corpuscular Hgb Concent. 31.9 g/dL (32-36); Mean Platelet Volume 8.6 fL (7.5-11.0); Monocyte (Absolute #) 0.63 x10^3/uL (0.0-1.3); Monocytes % 7.5 % (0.0-12.0); Neutrophil % 65.6 % (36.0-66.0); Platelet Count 251 x10^3/uL (150-450); Red Blood Count 4.46 x10^6/uL (4.1-5.4); Red Cell Distribution Width 14.6 % (11.5-14.0); White Blood Count 8.4 x10^3/uL (4.0-10.5)
[2022-10-26 11:36] LABS: ALBUMIN 4.4 g/dL (3.5-5.0); ALKALINE PHOSPHATASE 77 U/L (38-126); ANION GAP 14.9 MEQ/L (5-15); BLOOD UREA NITROGEN 13 mg/dL (7-17); CHLORIDE 104 mmol/L (98-107); Calcium 9.1 mg/dL (8.4-10.2); Carbon Dioxide 23 mmol/L (22-30); Creatinine 1 0.51 mg/dL (0.52-1.04); EST GLOMERULAR FILTRATION RATE > 60.0 ML/MIN; Glucose 121 mg/dL (74-106); MAGNESIUM 2.3 mg/dL (1.6-2.3); SGOT/AST 57 U/L (14-36); SGPT/ALT 52 U/L (0-35); SODIUM 136 mmol/L (137-145); TROPONIN < 0.012 ng/mL (0.000-0.034); Total Protein 8.1 g/dL (6.3-8.2)
[2022-10-26 11:37] LABS: Potassium 5.9 mmol/L (3.5-5.1)
--- NOTE | 2022-10-26 12:09 | XRAY ---
Indication: Persistent vertigo. No known injury. Multiple contiguous axial images obtained through the head without contrast. Comparison: July 08, 2017 and May 27, 2021 Normal appearing brain parenchyma, ventricles, and bony calvarium. Visualized paranasal sinuses and mastoid air cells are clear. Impression: Continued normal CT head without contrast exam.
[2022-10-26 13:16] LABS: Appearance Clear (Clear); Bacteria None Seen /HPF (None Seen); Bilirubin Negative (Negative); Blood Negative (Negative); Epithelial Cells None Seen /HPF (None Seen); Glucose, Urine Negative (Negative); Hyaline Casts NONE SEEN /LPF (0-2); Ketones Negative (Negative); Leukocyte Esterase Negative (Negative); Nitrite Negative (Negative); Ph 6.5 (4.6-8.0); Protein,Urine Dip Negative (Negative); RBC 0-2 /HPF (0-5); Specific Gravity <=1.005 (1.005-1.030); Urobilinogen 0.2 mg/dL (0.2); WBC 0-2 /HPF (0-5)
[2022-10-26 13:27] LABS: ADD URINE CULTURE? NO (NO)
[2022-10-26 14:08] VITALS: BP 132/83; PULSE 75; O2SAT 92
== END 2022-10-26 14:21 | disposition home or self-care (01) ==
LOC: ED 10:21
DX: R42 Dizziness and giddiness (principal); I10 Essential (primary) hypertension; Z79.899 Other long term (current) drug therapy; Z28.310 Unvaccinated for COVID-19
CPT/HCPCS: 36000; 36415; 70450; 80053; 81001; 83735; 84484; 85025; 93005; 93041; 99284

== ENCOUNTER 2022-11-28 14:15 | Emergency (ER) | payer OTHER ==
--- NOTE | 2022-11-28 14:27 | ERPHSYRPT ---
- History of Present Illness Time Seen by Provider: 11/28/22 14:27 Source: patient Exam Limitations: no limitations Physician History: This is a morbidly obese 57-year-old female who has a nurse practitioner Godfrey overseeing her care. Patient was seen in this emergency department on 10/26/2022 because of vertigo and dizziness symptoms. She has been having these types of symptoms since August 2022. She has been treated with several rounds of antibiotics for ear and nasal infections without much help. Patient has appointment to see search and rescue officer. Patient's primary complaint today is that she feels as though she is going to pass out and very fatigued and weak. She does not have much in the way of new vertigo or dizziness symptoms. She has mild headache. This patient arrives with vital signs that are stable except for slightly elevated heart rate and 101 to 104 bpm. She has a history of morbid obesity, hypertension, peripheral neuropathy, migraine headaches, chronic fatigue syndrome, hypoglycemia, gastroesophageal reflux disease. She denies chest pain. She denies abdominal pain. She denies shortness of breath. Associated Symptoms: headaches, malaise, weakness, No nausea, No vomiting, No shortness of breath, No chest pain, No fever Allergies/Adverse Reactions: codeine [Codeine] Allergy (Mild, Verified 11/28/22 14:27) doxycycline Allergy (Mild, Verified 11/28/22 14:27) Penicillins Allergy (Mild, Verified 11/28/22 14:27) aspirin Allergy (Unknown, Verified 11/28/22 14:27) Difficulty Breathing Patient states she has a sensitivity to aspirin. Home Medications: Lisinopril 10 mg [Zestril 10 MG] 10 mg PO BID 02/28/13 [History] Fluticasone/Salmeterol [Advair 250-50 Diskus] 2 puff IH BID 01/15/15 [History] Ipratropium/Albuterol Sulfate [Combivent Respimat Inhal [place]] 4 gm IH QID PRN 01/27/18 [History] Fexofenadine HCl [Anna Allergy] 60 mg PO DAILY 05/27/21 [History] Metoprolol Succinate 25 mg Xl* [Toprol-Xl 25MG Tablets] 50 mg PO DAILY 05/27/21 [History] Zafirlukast 20 mg [Accolate 20 mg] 10 mg PO BID 05/27/21 [History] Hx Tetanus, Diphtheria Vaccination/Date Given: No Hx Influenza Vaccination/Date Given: No Hx Pneumococcal Vaccination/Date Given: No Travel Risk - International Travel Have you traveled outside of the country in past 3 weeks: No - Coronavirus Screening Are you exhibiting any of the following symptoms?: Yes Close contact with a COVID-19 positive Pt in past 14-21 Days: No - Vaccine Status Have you recieved a Covid-19 vaccination: No - Review of Systems Constitutional: Weakness Eyes: No Symptoms Ears, Nose, & Throat: No Symptoms Respiratory: No Symptoms Cardiac: No Symptoms Abdominal/Gastrointestinal: No Symptoms Genitourinary Symptoms: No Symptoms Musculoskeletal: Arthralgias, Myalgias Skin: No Symptoms Neurological: Dizziness, Headache, Lethargy Psychological: No Symptoms Endocrine: No Symptoms Hematologic/Lymphatic: No Symptoms Immunological/Allergic: No Symptoms All Other Systems: Reviewed and Negative - Past Medical History Pertinent Past Medical History: Yes Neurological History: Migraines, Peripheral Neuropathy ENT History: Other Cardiac History: Hypertension Respiratory History: Asthma, Pneumonia Endocrine Medical History: Hypoglycemia Musculoskeletal History: Fibromyalgia GI Medical History: GERD, Gallbladder Disease, Other History: Other Psycho-Social History: No Pertinent History Female Reproductive Disorders: No Pertinent History Other Medical History: neuropathy. chronic fatigue. acute kidney failure. fibroid cyst in uterous 9 cm. epidural for back pain thru Dr. Sanches, January 2021, May 2021. - Past Surgical History Past Surgical History: Yes Neuro Surgical History: No Pertinent History Cardiac: No Pertinent History Respiratory: No Pertinent History Gastrointestinal: Cholecystectomy Genitourinary: No Pertinent History Musculoskeletal: No Pertinent History Female Surgical History: Dilation & Curettage Other Surgical History: sinus, d & c - Social History Smoking Status: Never smoker Exposure to second hand smoke: No Drug Use: none Patient Lives Alone: No Significant Family History: diabetes, hypertension - Nursing Vital Signs Nursing Vital Signs: Initial Vital Signs Temperature 97.6 F 11/28/22 14:27 Pulse Rate 111 H 11/28/22 14:27 Respiratory Rate 18 11/28/22 14:27 Blood Pressure 142/91 11/28/22 14:27 O2 Sat by Pulse Oximetry 98 11/28/22 14:27 Pain Scale Pain Intensity 0 - Physical Exam General Appearance: no apparent distress, alert, obese Eye Exam: PERRL/EOMI, eyes nml inspection Ears, Nose, Throat Exam: normal ENT inspection, moist mucous membranes Neck Exam: normal inspection, non-tender, supple, full range of motion Respiratory Exam: normal breath sounds, lungs clear, airway intact, No chest tenderness, No respiratory distress Cardiovascular Exam: tachycardia Gastrointestinal/Abdomen Exam: soft, normal bowel sounds, No tenderness Rectal Exam: not done Back Exam: normal inspection, normal range of motion, No CVA tenderness, No vertebral tenderness Extremity Exam: normal inspection, normal range of motion, pelvis stable Neurologic Exam: alert, oriented x 3, cooperative, [employer] 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 consultant II-XII nml as tested, normal mood/affect, nml cerebellar function, nml station & gait, sensation nml Skin Exam: normal color, warm, dry Lymphatic Exam: No adenopathy SpO2 Interpretation: normal O2 Delivery: Room Air - Course Nursing assessment & vital signs reviewed: Yes EKG Interpreted by Me: RATE ([id number]), Sinus Tach, NORMAL AXIS, NORMAL INTERVALS, NORMAL QRS, NORMAL ST-T, Other (No acute ischemic changes on today's twelve-lead EKG.) Ordered Tests: Active Orders 24 hr Category Date Time Status EKG-ER Only STAT Care 11/28/22 15:13 Active IV Insertion STAT Care 11/28/22 15:13 Active HEAD WITHOUT CONTRAST [CT] Stat Exams 11/28/22 15:14 Completed CBC W DIFF Stat Lab 11/28/22 15:45 Completed CMP Stat Lab 11/28/22 15:45 Completed CULTURE,URINE Stat Lab 11/28/22 15:33 Received Lactic Acid Stat Lab 11/28/22 15:13 Completed MONO SCREEN Stat Lab 11/28/22 15:33 Completed T4 (Thyroxine) Stat Lab 11/28/22 15:45 Completed TROPONIN Q4H Lab 11/28/22 15:45 Completed TROPONIN Q4H Lab 11/28/22 19:15 Ordered TROPONIN Q4H Lab 11/28/22 23:15 Ordered TSH [TSH, 3RD Generation] Stat Lab 11/28/22 15:45 Completed UA W/RFX UR CULTURE Stat Lab 11/28/22 15:33 Completed Medication Summary Discontinued Medications Generic Name Dose Route Start Last Admin Trade Name Freq PRN Reason Stop Dose Admin Sodium Chloride 1,000 mls @ 999 mls/hr 11/28/22 15:13 11/28/22 16:54 Sodium Chloride 0.9% 1000 Ml IV 11/28/22 16:13 Infused .Q1H1M STA Infusion Sodium Chloride Confirm 11/28/22 15:42 Sodium Chloride 0.9% 1000 Ml Administered 11/28/22 15:43 Dose 1,000 mls @ ud .ROUTE .STK-MED ONE Lab/Rad Data: Laboratory Result Diagrams 11/28/22 15:45 11/28/22 15:45 Laboratory Results 11/28/22 11/28/22 11/28/22 Range/Units 15:55 15:45 15:45 WBC (4.0-10.5) x10^3/uL RBC (4.1-5.4) x10^6/uL Hgb (12.0-16.0) g/dL Hct (35-47) % MCV (78-100) fL MCH (26-32) pg MCHC (32-36) g/dL RDW (11.5-14.0) % Plt Count (150-450) x10^3/uL MPV (7.5-11.0) fL Gran % (36.0-66.0) % Immature Gran % (Auto) (0.00-0.4) % Nucleat RBC Rel Count (0.00-0.1) % Eos # (Auto) (0-0.5) x10^3/uL Immature Gran # (Auto) (0.00-0.03) x10^3u/L Absolute Lymphs (auto) (1.0-4.6) x10^3/uL Absolute Monos (auto) (0.0-1.3) x10^3/uL Absolute Nucleated RBC (0.00-0.01) x10^3u/L Lymphocytes % (24.0-44.0) % Monocytes % (0.0-12.0) % Eosinophils % (0.00-5.0) % Basophils % (0.0-0.4) % Absolute Granulocytes (1.4-6.9) x10^3/uL Basophils # (0-0.4) x10^3/uL Sodium (137-145) mmol/L Potassium (3.5-5.1) mmol/L Chloride (98-107) mmol/L Carbon Dioxide (22-30) mmol/L Anion Gap (5-15) MEQ/L BUN (7-17) mg/dL Creatinine (0.52-1.04) mg/dL Estimated GFR ML/MIN Glucose (74-106) mg/dL Lactic Acid (0.4-2.0) Calcium (8.4-10.2) mg/dL Total Bilirubin (0.2-1.3) mg/dL AST (14-36) U/L ALT (0-35) U/L Alkaline Phosphatase (38-126) U/L Troponin I < 0.012 (0.000-0.034) ng/mL Serum Total Protein (6.3-8.2) g/dL Albumin (3.5-5.0) g/dL Thyroxine (T4) 9.71 (5.53-10.96) ug/dL TSH 3rd Generation 1.380 (0.47-4.68) mIU/L Urine Color (Yellow) Urine Appearance (Clear) Urine pH (4.6-8.0) Ur Specific [place] (1.005-1.030) Urine Protein (Negative) Urine Glucose (UA) (Negative) mg/dL Urine Ketones (Negative) Urine Blood (Negative) Urine Nitrite (Negative) Urine Bilirubin (Negative) Urine Urobilinogen (0.2) mg/dL Ur Leukocyte Esterase (Negative) U Hyaline Cast (Auto) (0-2) /LPF Urine Microscopic RBC (0-5) /HPF Urine Microscopic WBC (0-5) /HPF Ur Epithelial Cells (None Seen) /HPF Urine Bacteria (None Seen) /HPF Urine Culture Reflexed (NO) Monoscreen (NEGATIVE) Influenza Type A Ag NEGATIVE (NEGATIVE) Influenza Type B Ag NEGATIVE (NEGATIVE) RSV (PCR) NEGATIVE (NEGATIVE) SARS-CoV-2 (PCR) NEGATIVE (NEGATIVE) 11/28/22 11/28/22 11/28/22 Range/Units 15:45 15:45 15:33 WBC 7.5 (4.0-10.5) x10^3/uL RBC 4.22 (4.1-5.4) x10^6/uL Hgb 13.5 (12.0-16.0) g/dL Hct 42.4 (35-47) % MCV 100.5 H (78-100) fL MCH 32.0 (26-32) pg MCHC 31.8 L (32-36) g/dL RDW 14.6 H (11.5-14.0) % Plt Count 256 (150-450) x10^3/uL MPV 8.9 (7.5-11.0) fL Gran % 66.5 H (36.0-66.0) % Immature Gran % (Auto) 0.5 H (0.00-0.4) % Nucleat RBC Rel Count 0.0 (0.00-0.1) % Eos # (Auto) 0.09 (0-0.5) x10^3/uL Immature Gran # (Auto) 0.04 H (0.00-0.03) x10^3u/L Absolute Lymphs (auto) 1.63 (1.0-4.6) x10^3/uL Absolute Monos (auto) 0.73 (0.0-1.3) x10^3/uL Absolute Nucleated RBC 0.00 (0.00-0.01) x10^3u/L Lymphocytes % 21.6 L (24.0-44.0) % Monocytes % 9.7 (0.0-12.0) % Eosinophils % 1.2 (0.00-5.0) % Basophils % 0.5 (0.0-0.4) % Absolute Granulocytes 5.01 (1.4-6.9) x10^3/uL Basophils # 0.04 (0-0.4) x10^3/uL Sodium 139 (137-145) mmol/L Potassium 3.5 (3.5-5.1) mmol/L Chloride 108 H (98-107) mmol/L Carbon Dioxide 21 L (22-30) mmol/L Anion Gap 14.4 (5-15) MEQ/L BUN 13 (7-17) mg/dL Creatinine 0.53 (0.52-1.04) mg/dL Estimated GFR > 60.0 ML/MIN Glucose 122 H (74-106) mg/dL Lactic Acid (0.4-2.0) Calcium 8.4 (8.4-10.2) mg/dL Total Bilirubin 0.40 (0.2-1.3) mg/dL AST 42 H (14-36) U/L ALT 50 H (0-35) U/L Alkaline Phosphatase 79 (38-126) U/L Troponin I (0.000-0.034) ng/mL Serum Total Protein 6.7 (6.3-8.2) g/dL Albumin 3.9 (3.5-5.0) g/dL Thyroxine (T4) (5.53-10.96) ug/dL TSH 3rd Generation (0.47-4.68) mIU/L Urine Color (Yellow) Urine Appearance (Clear) Urine pH (4.6-8.0) Ur Specific [place] (1.005-1.030) Urine Protein (Negative) Urine Glucose (UA) (Negative) mg/dL Urine Ketones (Negative) Urine Blood (Negative) Urine Nitrite (Negative) Urine Bilirubin (Negative) Urine Urobilinogen (0.2) mg/dL Ur Leukocyte Esterase (Negative) U Hyaline Cast (Auto) (0-2) /LPF Urine Microscopic RBC (0-5) /HPF Urine Microscopic WBC (0-5) /HPF Ur Epithelial Cells (None Seen) /HPF Urine Bacteria (None Seen) /HPF Urine Culture Reflexed (NO) Monoscreen NEGATIVE (NEGATIVE) Influenza Type A Ag (NEGATIVE) Influenza Type B Ag (NEGATIVE) RSV (PCR) (NEGATIVE) SARS-CoV-2 (PCR) (NEGATIVE) 11/28/22 11/28/22 Range/Units 15:33 15:13 WBC (4.0-10.5) x10^3/uL RBC (4.1-5.4) x10^6/uL Hgb (12.0-16.0) g/dL Hct (35-47) % MCV (78-100) fL MCH (26-32) pg MCHC (32-36) g/dL RDW (11.5-14.0) % Plt Count (150-450) x10^3/uL MPV (7.5-11.0) fL Gran % (36.0-66.0) % Immature Gran % (Auto) (0.00-0.4) % Nucleat RBC Rel Count (0.00-0.1) % Eos # (Auto) (0-0.5) x10^3/uL Immature Gran # (Auto) (0.00-0.03) x10^3u/L Absolute Lymphs (auto) (1.0-4.6) x10^3/uL Absolute Monos (auto) (0.0-1.3) x10^3/uL Absolute Nucleated RBC (0.00-0.01) x10^3u/L Lymphocytes % (24.0-44.0) % Monocytes % (0.0-12.0) % Eosinophils % (0.00-5.0) % Basophils % (0.0-0.4) % Absolute Granulocytes (1.4-6.9) x10^3/uL Basophils # (0-0.4) x10^3/uL Sodium (137-145) mmol/L Potassium (3.5-5.1) mmol/L Chloride (98-107) mmol/L Carbon Dioxide (22-30) mmol/L Anion Gap (5-15) MEQ/L BUN (7-17) mg/dL Creatinine (0.52-1.04) mg/dL Estimated GFR ML/MIN Glucose (74-106) mg/dL Lactic Acid 2.4 H (0.4-2.0) Calcium (8.4-10.2) mg/dL Total Bilirubin (0.2-1.3) mg/dL AST (14-36) U/L ALT (0-35) U/L Alkaline Phosphatase (38-126) U/L Troponin I (0.000-0.034) ng/mL Serum Total Protein (6.3-8.2) g/dL Albumin (3.5-5.0) g/dL Thyroxine (T4) (5.53-10.96) ug/dL TSH 3rd Generation (0.47-4.68) mIU/L Urine Color Yellow (Yellow) Urine Appearance Clear (Clear) Urine pH 6.5 (4.6-8.0) Ur Specific [place] 1.015 (1.005-1.030) Urine Protein Negative (Negative) Urine Glucose (UA) 100 A (Negative) mg/dL Urine Ketones Negative (Negative) Urine Blood Negative (Negative) Urine Nitrite Negative (Negative) Urine Bilirubin Negative (Negative) Urine Urobilinogen 0.2 (0.2) mg/dL Ur Leukocyte Esterase Moderate A (Negative) U Hyaline Cast (Auto) NONE SEEN (0-2) /LPF Urine Microscopic RBC 0-2 (0-5) /HPF Urine Microscopic WBC 21-50 A (0-5) /HPF Ur Epithelial Cells Rare (None Seen) /HPF Urine Bacteria None Seen (None Seen) /HPF Urine Culture Reflexed YES (NO) Monoscreen (NEGATIVE) Influenza Type A Ag (NEGATIVE) Influenza Type B Ag (NEGATIVE) RSV (PCR) (NEGATIVE) SARS-CoV-2 (PCR) (NEGATIVE) - Progress Progress: improved, re-examined Progress Note: 11/28/22 17:24 Patient's medical issue is 1 of moderate complexity. The level of complexity and the work-up performed is based on the review of the patient's past medical history, review of the patient's medication list, review of the patient's drug allergy list, history of present illness and physical findings on examination. The work-up in this patient includes CT scan of the head without contrast, twelve-lead EKG, troponin level, urinalysis, CBC, CMP. The patient has a urinary tract infection. It is moderate. We will place her on Levaquin here in the emergency department followed by remotely sending a prescription for Cipro 500 mg twice a day for 7 days to her pharmacy. Patient is to follow-up with her primary care physician for further evaluation management. 11/28/22 17:25 CT scan of the head without contrast was interpreted by the radiologist and the patient has no acute intracranial abnormality. Counseled pt/family regarding: lab results, diagnosis, need for follow-up, rad results Medical Desision Making - Independent Historian Additional History obtained from: Spouse - Diagnostic Testing Diagnostic test were ordered, analyzed, and reviewed by me: Yes Radiological Interpretation: Reviewed by me, Teleradiologist Report - Risk of complications The pt has a mod risk of morbidity or mortality based on: Need for prescription drug management - Departure Departure Disposition: Home Clinical Impression: Urinary tract infection Condition: Stable Critical Care Time: No Referrals: AMY MITCHELL NP [Primary Care Provider] - Follow up/PCP as directed Additional Instructions: Drink plenty of fluids. Take your antibiotics as prescribed. Take your other medication as prescribed. Call your primary care physician on 09/30/2022 for further evaluation and management. Prescriptions: Ciprofloxacin [Cipro 500 MG] 500 mg PO BID #14 tablet
[2022-11-28 14:34] VITALS: BP 142/91; PULSE 111; RESP 18; TEMP 97.6; O2SAT 98
[2022-11-28] MEDS ORDERED: Sodium Chloride 0.9% 1000 ML 1,000 ML IV STA (15:13)
[2022-11-28] MEDS ORDERED: Sodium Chloride 0.9% 1000 ML 1,000 ML ONE (15:42)
[2022-11-28 15:54] LABS: Absolute Neutrophil Ct (ANC) 5.01 x10^3/uL (1.4-6.9); BASOPHIL % 0.5 % (0.0-0.4); Basophil (Absolute #) 0.04 x10^3/uL (0-0.4); Eosinophil % 1.2 % (0.00-5.0); Eosinophil (Absolute #) 0.09 x10^3/uL (0-0.5); Hematocrit 42.4 % (35-47); Hemoglobin 13.5 g/dL (12.0-16.0); IMMATURE GRAN # 0.04 x10^3u/L (0.00-0.03); IMMATURE GRAN % 0.5 % (0.00-0.4); Lymphocyte (Absolute #) 1.63 x10^3/uL (1.0-4.6); Lymphocytes % 21.6 % (24.0-44.0); Mean Cell Volume 100.5 fL (78-100); Mean Corpuscular Hgb Concent. 31.8 g/dL (32-36); Mean Platelet Volume 8.9 fL (7.5-11.0); Monocyte (Absolute #) 0.73 x10^3/uL (0.0-1.3); Monocytes % 9.7 % (0.0-12.0); Neutrophil % 66.5 % (36.0-66.0); Platelet Count 256 x10^3/uL (150-450); Red Blood Count 4.22 x10^6/uL (4.1-5.4); Red Cell Distribution Width 14.6 % (11.5-14.0); White Blood Count 7.5 x10^3/uL (4.0-10.5)
[2022-11-28 16:02] LABS: Appearance Clear (Clear); Bacteria None Seen /HPF (None Seen); Bilirubin Negative (Negative); Blood Negative (Negative); Epithelial Cells Rare /HPF (None Seen); Glucose, Urine 100 mg/dL (Negative); Hyaline Casts NONE SEEN /LPF (0-2); Ketones Negative (Negative); Leukocyte Esterase Moderate (Negative); Nitrite Negative (Negative); Ph 6.5 (4.6-8.0); Protein,Urine Dip Negative (Negative); RBC 0-2 /HPF (0-5); Specific Gravity 1.015 (1.005-1.030); Urobilinogen 0.2 mg/dL (0.2); WBC 21-50 /HPF (0-5)
[2022-11-28 16:06] LABS: ADD URINE CULTURE? YES (NO)
[2022-11-28 16:34] LABS: INFLUENZA A NEGATIVE (NEGATIVE); INFLUENZA B NEGATIVE (NEGATIVE); RESPIRATORY SYNCTIAL VIRUS NEGATIVE (NEGATIVE); SARS-CoV-2 Xpert Express NEGATIVE (NEGATIVE)
[2022-11-28 16:46] LABS: ALBUMIN 3.9 g/dL (3.5-5.0); ALKALINE PHOSPHATASE 79 U/L (38-126); ANION GAP 14.4 MEQ/L (5-15); BLOOD UREA NITROGEN 13 mg/dL (7-17); CHLORIDE 108 mmol/L (98-107); Calcium 8.4 mg/dL (8.4-10.2); Carbon Dioxide 21 mmol/L (22-30); Creatinine 1 0.53 mg/dL (0.52-1.04); EST GLOMERULAR FILTRATION RATE > 60.0 ML/MIN; Glucose 122 mg/dL (74-106); Potassium 3.5 mmol/L (3.5-5.1); SGOT/AST 42 U/L (14-36); SGPT/ALT 50 U/L (0-35); SODIUM 139 mmol/L (137-145); Total Protein 6.7 g/dL (6.3-8.2)
--- NOTE | 2022-11-28 16:49 | XRAY ---
CLINICAL HISTORY:Headache; vertigo COMPARISON:None. TECHNIQUE:Axial noncontrast CT scan of the brain was performed from the skull base to the high parietal region, with coronal and sagittal reformats. FINDINGS: The visualized brain parenchyma shows normal appearance. Cesar-white matter differentiation is maintained. No midline shifts or deformity. No intracerebral or extra axial hematoma. Normal size and configuration of the cerebral ventricles. Normal CT appearance of the posterior fossa structures namely the cerebellar hemispheres, brainstem and cerebellar peduncles. Normal temporal bones. The IACs are unremarkable. The cerebello-pontine angles are clear. The pituitary gland, the pineal gland, the optic chiasm is unremarkable. The osseous structures in the skull base are unremarkable. No definite calvarium fractures. The scanned paranasal sinuses are clear. Small interhemispheric lipoma anteriorly measuring about 3X 4 mm. IMPRESSION: No acute intracranial abnormality. Electronically Signed by: Lucille Steen MD. (11/28/2022 15:48:09 DEPUTY TREASURER)
[2022-11-28 17:17] LABS: TROPONIN < 0.012 ng/mL (0.000-0.034)
[2022-11-28] MEDS ORDERED: Levofloxacin 500 MG Tablet PO ONE (17:26)
[2022-11-28] MEDS ORDERED: Levofloxacin 500 MG Tablet ONE (17:35)
== END 2022-11-28 17:49 | disposition home or self-care (01) ==
LOC: ED 14:15
DX: N39.0 Urinary tract infection, site not specified (principal); R53.1 Weakness; R53.83 Other fatigue; R51.9 Headache, unspecified; I10 Essential (primary) hypertension; Z79.899 Other long term (current) drug therapy; Z28.310 Unvaccinated for COVID-19
CPT/HCPCS: 0241U; 36000; 36415; 70450; 80053; 81001; 83605; 84436; 84443; 84484; 85025; 86308; 87086; 93005; 96360; 99284; A9270-GY

== ENCOUNTER 2023-04-03 15:28 | Emergency (ER) | payer OTHER ==
--- NOTE | 2023-04-03 15:39 | ERPHSYRPT ---
- History of Present Illness Time Seen by Provider: 04/03/23 15:39 Source: patient, family Exam Limitations: no limitations Physician History: This is a morbidly obese white female patient of nurse practitioner Godfrey who was diagnosed with COVID-19 viral infection 3 days ago. She had a sore throat at that time but today the sore throat acutely worsened. Patient has not been coughing. She does not have any stridor or wheezing. Patient states that no strep test was performed. Patient has a history of asthma, hypertension, COPD and seasonal allergies. She currently has no chest pain. She is not short of breath. She has no abdominal pain. She has had no vomiting or diarrhea symptoms. Patient states that she has taken hydrocodone and steroids in the past without any adverse effects. Timing/Duration: worse Cough Quality/Degree: no cough Possible Cause: no prior episodes Associated Symptoms: sore throat Allergies/Adverse Reactions: codeine [Codeine] Allergy (Mild, Verified 04/03/23 15:33) doxycycline Allergy (Mild, Verified 04/03/23 15:33) Penicillins Allergy (Mild, Verified 04/03/23 15:33) aspirin Allergy (Unknown, Verified 04/03/23 15:33) Difficulty Breathing Patient states she has a sensitivity to aspirin. Home Medications: Lisinopril 10 mg [Zestril 10 MG] 10 mg PO BID 02/28/13 [History] Fluticasone/Salmeterol [Advair 250-50 Diskus] 2 puff IH BID 01/15/15 [History] Ipratropium/Albuterol Sulfate [Combivent Respimat Inhal [place]] 4 gm IH QID PRN 01/27/18 [History] Fexofenadine HCl [Anna Allergy] 60 mg PO DAILY 05/27/21 [History] Metoprolol Succinate 25 mg Xl* [Toprol-Xl 25MG Tablets] 50 mg PO DAILY 05/27/21 [History] Zafirlukast 20 mg [Accolate 20 mg] 10 mg PO BID 05/27/21 [History] Hx Tetanus, Diphtheria Vaccination/Date Given: No Hx Influenza Vaccination/Date Given: No Hx Pneumococcal Vaccination/Date Given: No Travel Risk - International Travel Have you traveled outside of the country in past 3 weeks: No - Coronavirus Screening Are you exhibiting any of the following symptoms?: Yes Close contact with a COVID-19 positive Pt in past 14-21 Days: No - Vaccine Status Have you recieved a Covid-19 vaccination: No - Review of Systems Constitutional: No Symptoms Eyes: No Symptoms Ears, Nose, & Throat: Throat Pain Respiratory: No Symptoms Cardiac: No Symptoms Abdominal/Gastrointestinal: No Symptoms Genitourinary Symptoms: No Symptoms Musculoskeletal: No Symptoms Skin: No Symptoms Neurological: No Symptoms Psychological: No Symptoms Endocrine: No Symptoms Hematologic/Lymphatic: No Symptoms Immunological/Allergic: No Symptoms All Other Systems: Reviewed and Negative - Past Medical History Pertinent Past Medical History: Yes Neurological History: Migraines, Peripheral Neuropathy ENT History: Other Cardiac History: Hypertension Respiratory History: Asthma, Pneumonia Endocrine Medical History: Hypoglycemia Musculoskeletal History: Degenerative Disk Disease, Fibromyalgia, Osteoarthritis GI Medical History: GERD, Gallbladder Disease, Other History: Other Psycho-Social History: No Pertinent History Female Reproductive Disorders: No Pertinent History Other Medical History: PMHX: GERD, GALLBLADDER DISEASE CHRONIC FATIGUE SYNDROME, ACUTE KIDNEY FAILURE, SPIDURAL FOR BACK PAIN 02/20, 05/24 - Past Surgical History Past Surgical History: Yes Neuro Surgical History: No Pertinent History Cardiac: No Pertinent History Respiratory: No Pertinent History Gastrointestinal: Cholecystectomy Genitourinary: No Pertinent History Musculoskeletal: No Pertinent History Female Surgical History: Dilation & Curettage Other Surgical History: sinus, d & c - Social History Smoking Status: Never smoker Exposure to second hand smoke: No Drug Use: none Patient Lives Alone: No Significant Family History: diabetes, hypertension - Nursing Vital Signs Nursing Vital Signs: Initial Vital Signs Temperature 98.3 F 04/03/23 15:49 Pulse Rate 81 04/03/23 15:49 Respiratory Rate 14 04/03/23 15:49 Blood Pressure 133/73 04/03/23 15:49 O2 Sat by Pulse Oximetry 95 04/03/23 15:49 Pain Scale Pain Intensity 7 - Physical Exam General Appearance: no apparent distress, alert, anxiety, obese Eye Exam: PERRL/EOMI, eyes nml inspection Ears, Nose, Throat Exam: pharyngeal erythema, No tonsillar exudate Neck Exam: normal inspection, non-tender, supple, full range of motion Respiratory Exam: normal breath sounds, lungs clear, airway intact, No chest tenderness, No respiratory distress Cardiovascular Exam: regular rate/rhythm, normal heart sounds, normal peripheral pulses Gastrointestinal/Abdomen Exam: soft, normal bowel sounds, No tenderness Pelvic Exam: not done Rectal Exam: not done Back Exam: normal inspection, normal range of motion, No CVA tenderness Extremity Exam: normal inspection, normal range of motion, pelvis stable Neurologic Exam: alert, oriented x 3, cooperative, test analyst II-XII nml as tested, normal mood/affect, nml cerebellar function, nml station & gait, sensation nml Skin Exam: normal color, warm, dry Lymphatic Exam: No adenopathy SpO2 Interpretation: normal O2 Delivery: Room Air - Course Nursing assessment & vital signs reviewed: Yes Ordered Tests: Medication Summary Discontinued Medications Generic Name Dose Route Start Last Admin Trade Name Freq PRN Reason Stop Dose Admin Hydrocodone Bitart/Acetaminophen 10 ml 04/03/23 16:33 Hydrocodone/Acetaminophen 5 Ml Udcup PO 04/03/23 16:34 STAT STA Methylprednisolone Sodium 0 mg 04/03/23 16:33 Succinate 125 mg/ Sterile IM 04/03/23 16:34 Water 2 ml STAT ONE Lab/Rad Data: Laboratory Results 04/03/23 Range/Units 16:00 Group A Strep Antibody NOT DETECTED (NEGATIVE) - Progress Progress: improved Air Movement: good Progress Note: 04/03/23 16:38 This patient's medical issue is 1 of low complexity. The level of complexity in the workup performed is based on review the patient's past medical history, review of the patient's medication list, review the patient's drug allergy list, history of present illness and physical findings on examination. The workup in this patient includes group A strep swab. If this is positive we will start her on a Z-Domenico. Patient will benefit from a single dose of Solu-Medrol injection here in the emergency department as well as hydrocodone elixir. We will also remotely send a prescription for hydrocodone elixir to her pharmacy. Blood Culture(s) Obtained: No Counseled pt/family regarding: lab results, diagnosis, need for follow-up Medical Desision Making - Independent Historian Additional History obtained from: Spouse - Diagnostic Testing Diagnostic test were ordered, analyzed, and reviewed by me: Yes - Risk of complications The pt has a mod risk of morbidity or mortality based on: Need for prescription drug management - Departure Departure Disposition: Home Clinical Impression: Pharyngitis Condition: Stable Critical Care Time: No Referrals: AMY MITCHELL NP [Primary Care Provider] - Follow up/PCP as directed Additional Instructions: Drink plenty of cool liquids. Take your medications as prescribed. May also gargle with salt water or Listerine type of mouthwashes. Prescriptions: Hydrocodone/Acetaminophen [Hydrocodone-Acetamn 7.5-325/15] 10 ml PO Q8H PRN #120 ml MDD 30 ml PRN Reason: Cough
[2023-04-03 15:54] VITALS: TEMP 98.3; O2SAT 95
[2023-04-03] MEDS ORDERED: HYDROCODONE-ACETAMIN 2.5-108/5 ML SOLUTION PO STA (16:33)
[2023-04-03] MEDS ORDERED: solu-MEDROL 125 MG, Sterile H2O 10 ml 2 ML IM ONE ×2 (16:33)
[2023-04-03] MEDS ORDERED: solu-MEDROL ONE (16:55)
[2023-04-03] MEDS ORDERED: Sterile H2O 10 ml IJ ONE (16:55)
[2023-04-03] MEDS ORDERED: HYDROCODONE-ACETAMIN 2.5-108/5 ML SOLUTION ONE (16:55)
[2023-04-03 17:05] VITALS: BP 140/87; PULSE 77; RESP 20
== END 2023-04-03 17:25 | disposition home or self-care (01) ==
LOC: ED 15:28
DX: J02.9 Acute pharyngitis, unspecified (principal); I10 Essential (primary) hypertension; Z79.891 Long term (current) use of opiate analgesic; Z79.899 Other long term (current) drug therapy; Z28.310 Unvaccinated for COVID-19
CPT/HCPCS: 87651; 96372; 99283; J2930; A9270-GY

== ENCOUNTER 2023-04-15 10:26 | Emergency (ER) | payer OTHER ==
[2023-04-15 10:29] VITALS: TEMP 97.3
--- NOTE | 2023-04-15 10:33 | ERPHSYRPT ---
- History of Present Illness Time Seen by Provider: 04/15/23 10:33 Source: patient, EMS, old records Exam Limitations: no limitations Physician History: This is a morbidly obese 58-year-old white female patient of nurse practitioner Godfrey who presents with what she thinks is an asthmatic attack that came on suddenly this morning. Her shortness of breath and wheezing did not respond to her nebulizer albuterol treatments. On 04/01/2023, patient was diagnosed with COVID-19 infection. Patient has a history of asthma, hypertension, COPD, seasonal allergies, migraine headaches, peripheral neuropathy, degenerative disc disease, fibromyalgia and gastroesophageal reflux disease. Patient is on chronic Plavix. Activities at Onset: none Severity of Dyspnea-Max: mild (To moderate) Severity of Dyspnea-Current: mild (To moderate) Possible Cause: occasional episodes Modifying Factors: Improves With: oxygen (Improved), rest (Improved) Associated Symptoms: chest pain/discomfort (Vague discomfort that she typically gets when she has an asthmatic attack. It is central/substernal without radiation), No ankle swelling, No heaviness Allergies/Adverse Reactions: codeine [Codeine] Allergy (Mild, Verified 04/15/23 10:29) doxycycline Allergy (Mild, Verified 04/15/23 10:29) Penicillins Allergy (Mild, Verified 04/15/23 10:29) aspirin Allergy (Unknown, Verified 04/15/23 10:29) Difficulty Breathing Patient states she has a sensitivity to aspirin. Home Medications: Lisinopril 10 mg [Zestril 10 MG] 10 mg PO BID 02/28/13 [History] Fluticasone/Salmeterol [Advair 250-50 Diskus] 2 puff IH BID 01/15/15 [History] Ipratropium/Albuterol Sulfate [Combivent Respimat Inhal Nancy] 4 gm IH QID PRN 01/27/18 [History] Fexofenadine HCl [Anna Allergy] 60 mg PO DAILY 05/27/21 [History] Metoprolol Succinate 25 mg Xl* [Toprol-Xl 25MG Tablets] 50 mg PO DAILY 0 05/27/21 [History] Zafirlukast 20 mg [Accolate 20 mg] 10 mg PO BID 05/27/21 [History] Hx Tetanus, Diphtheria Vaccination/Date Given: No Hx Influenza Vaccination/Date Given: No Hx Pneumococcal Vaccination/Date Given: No Travel Risk - International Travel Have you traveled outside of the country in past 3 weeks: No - Coronavirus Screening Are you exhibiting any of the following symptoms?: Yes Symptoms: Shortness of Breath Close contact with a COVID-19 positive Pt in past 14-21 Days: No - Vaccine Status Have you recieved a Covid-19 vaccination: No - Review of Systems Constitutional: No Symptoms Eyes: No Symptoms Ears, Nose, & Throat: No Symptoms Respiratory: Dyspnea, Wheezing Cardiac: Chest Pain (Scribed as a central, substernal, nonradiating discomfort) Abdominal/Gastrointestinal: No Symptoms Genitourinary Symptoms: No Symptoms Musculoskeletal: No Symptoms Skin: No Symptoms Neurological: No Symptoms Psychological: No Symptoms Endocrine: No Symptoms Hematologic/Lymphatic: No Symptoms Immunological/Allergic: No Symptoms All Other Systems: Reviewed and Negative - Past Medical History Pertinent Past Medical History: Yes Neurological History: Migraines, Peripheral Neuropathy ENT History: Other Cardiac History: Hypertension Respiratory History: Asthma, Pneumonia Endocrine Medical History: Hypoglycemia Musculoskeletal History: Degenerative Disk Disease, Fibromyalgia, Osteoarthritis GI Medical History: GERD, Gallbladder Disease, Other History: Other Psycho-Social History: No Pertinent History Female Reproductive Disorders: No Pertinent History Other Medical History: PMHX: GERD, GALLBLADDER DISEASE CHRONIC FATIGUE SYNDROME, ACUTE KIDNEY FAILURE, SPIDURAL FOR BACK PAIN 02/20, 05/24 - Past Surgical History Past Surgical History: Yes Neuro Surgical History: No Pertinent History Cardiac: No Pertinent History Respiratory: No Pertinent History Gastrointestinal: Cholecystectomy Genitourinary: No Pertinent History Musculoskeletal: No Pertinent History Female Surgical History: Dilation & Curettage Other Surgical History: sinus, d & c - Social History Smoking Status: Never smoker Exposure to second hand smoke: No Drug Use: none Patient Lives Alone: No Significant Family History: diabetes, hypertension - Nursing Vital Signs Nursing Vital Signs: Initial Vital Signs Temperature 97.3 F 04/15/23 10:28 Pulse Rate 120 H 04/15/23 10:28 Respiratory Rate 16 04/15/23 10:28 Blood Pressure 129/97 04/15/23 10:28 O2 Sat by Pulse Oximetry 94 L 04/15/23 10:28 Pain Scale Pain Intensity 5 - Physical Exam General Appearance: no apparent distress, alert, obese Eye Exam: PERRL/EOMI, eyes nml inspection Ears, Nose, Throat Exam: hearing grossly normal, normal ENT inspection, normal pharynx Neck Exam: normal inspection, non-tender, supple, full range of motion Respiratory Exam: lungs clear, airway intact, wheezing (Mild bilateral upper airway), No chest tenderness, No respiratory distress Cardiovascular/Chest Exam: tachycardia (Most likely secondary to 3 albuterol treatments she received prior to coming to the emergency department) Abdominal/Gastrointestinal Exam: soft, normal bowel sounds, No tenderness Rectal Exam: not done Extremity Exam: non-tender, normal range of motion, normal inspection, normal capillary refill, no calf tenderness, no pedal edema, pelvis stable Neurologic Exam: alert, oriented x 3, cooperative, supervisor sign shop II-XII nml as tested, normal mood/affect, nml cerebellar function, nml station & gait, sensation nml Skin Exam: normal color, warm, dry Lymphatic Exam: No adenopathy SpO2 Interpretation: borderline oxygenation SpO2: 94 O2 Delivery: Room Air - Course Nursing assessment & vital signs reviewed: Yes EKG Interpreted by Me: RATE ([id number]), Sinus Tach, NORMAL AXIS, prolonged QT interval (Borderline), NORMAL QRS, Other (no acute ischemia) Ordered Tests: Active Orders 24 hr Category Date Time Status EKG-ER Only STAT Care 04/15/23 11:08 Active IV Insertion STAT Care 04/15/23 11:08 Active Pulse Oximetry (ED) STAT Care 04/15/23 11:08 Active CHEST 1 VIEW (PORTABLE) Stat Exams 04/15/23 11:08 Completed CBC W DIFF Stat Lab 04/15/23 11:08 Completed CMP Stat Lab 04/15/23 11:20 Completed NT PRO BNPII Stat Lab 04/15/23 11:20 Completed TROPONIN Q4H Lab 04/15/23 11:20 Completed TROPONIN Q4H Lab 04/15/23 15:15 Ordered TROPONIN Q4H Lab 04/15/23 19:15 Ordered Respiratory Therapy Assessment DAILY RT 04/15/23 11:21 Active Medication Summary Discontinued Medications Generic Name Dose Route Start Last Admin Trade Name Freq PRN Reason Stop Dose Admin Albuterol/Ipratropium 3 ml 04/15/23 11:08 04/15/23 11:19 Ipratropium/Albuterol Sulfate 3 Ml Ampul.Neb IH 04/15/23 11:09 3 ml STAT ONE Administration Albuterol/Ipratropium Confirm 04/15/23 11:16 Ipratropium/Albuterol Sulfate 3 Ml Ampul.Neb Administered 04/15/23 11:17 Dose 3 ml IH .STK-MED ONE Lab/Rad Data: Laboratory Result Diagrams 04/15/23 11:08 04/15/23 11:20 Laboratory Results 04/15/23 04/15/23 04/15/23 Range/Units 11:25 11:20 11:20 WBC (4.0-10.5) x10^3/uL RBC (4.1-5.4) x10^6/uL Hgb (12.0-16.0) g/dL Hct (35-47) % MCV (78-100) fL MCH (26-32) pg MCHC (32-36) g/dL RDW (11.5-14.0) % Plt Count (150-450) x10^3/uL MPV (7.5-11.0) fL Gran % (36.0-66.0) % Immature Gran % (Auto) (0.00-0.4) % Nucleat RBC Rel Count (0.00-0.1) % Eos # (Auto) (0-0.5) x10^3/uL Immature Gran # (Auto) (0.00-0.03) x10^3u/L Absolute Lymphs (auto) (1.0-4.6) x10^3/uL Absolute Monos (auto) (0.0-1.3) x10^3/uL Absolute Nucleated RBC (0.00-0.01) x10^3u/L Lymphocytes % (24.0-44.0) % Monocytes % (0.0-12.0) % Eosinophils % (0.00-5.0) % Basophils % (0.0-0.4) % Absolute Granulocytes (1.4-6.9) x10^3/uL Basophils # (0-0.4) x10^3/uL Sodium 138 (137-145) mmol/L Potassium 3.4 L (3.5-5.1) mmol/L Chloride 107 (98-107) mmol/L Carbon Dioxide 22 (22-30) mmol/L Anion Gap 12.6 (5-15) MEQ/L BUN 17 (7-17) mg/dL Creatinine 0.53 (0.52-1.04) mg/dL Estimated GFR 108.5 ML/MIN Glucose 130 H (74-106) mg/dL Calcium 8.9 (8.4-10.2) mg/dL Total Bilirubin 0.60 (0.2-1.3) mg/dL AST 40 H (14-36) U/L ALT 53 H (0-35) U/L Alkaline Phosphatase 81 (38-126) U/L Troponin I < 0.012 (0.000-0.034) ng/mL NT-Pro-B Natriuret Pep < 20.0 (<300) pg/mL Serum Total Protein 7.1 (6.3-8.2) g/dL Albumin 4.1 (3.5-5.0) g/dL Influenza Type A Ag NEGATIVE (NEGATIVE) Influenza Type B Ag NEGATIVE (NEGATIVE) RSV (PCR) NEGATIVE (NEGATIVE) SARS-CoV-2 (PCR) POSITIVE A (NEGATIVE) 04/15/23 Range/Units 11:08 WBC 9.4 (4.0-10.5) x10^3/uL RBC 4.45 (4.1-5.4) x10^6/uL Hgb 13.6 (12.0-16.0) g/dL Hct 42.6 (35-47) % MCV 95.7 (78-100) fL MCH 30.6 (26-32) pg MCHC 31.9 L (32-36) g/dL RDW 14.3 H (11.5-14.0) % Plt Count 301 (150-450) x10^3/uL MPV 8.9 (7.5-11.0) fL Gran % 58.3 (36.0-66.0) % Immature Gran % (Auto) 0.8 H (0.00-0.4) % Nucleat RBC Rel Count 0.0 (0.00-0.1) % Eos # (Auto) 0.20 (0-0.5) x10^3/uL Immature Gran # (Auto) 0.08 H (0.00-0.03) x10^3u/L Absolute Lymphs (auto) 2.93 (1.0-4.6) x10^3/uL Absolute Monos (auto) 0.70 (0.0-1.3) x10^3/uL Absolute Nucleated RBC 0.00 (0.00-0.01) x10^3u/L Lymphocytes % 31.1 (24.0-44.0) % Monocytes % 7.4 (0.0-12.0) % Eosinophils % 2.1 (0.00-5.0) % Basophils % 0.3 (0.0-0.4) % Absolute Granulocytes 5.48 (1.4-6.9) x10^3/uL Basophils # 0.03 (0-0.4) x10^3/uL Sodium (137-145) mmol/L Potassium (3.5-5.1) mmol/L Chloride (98-107) mmol/L Carbon Dioxide (22-30) mmol/L Anion Gap (5-15) MEQ/L BUN (7-17) mg/dL Creatinine (0.52-1.04) mg/dL Estimated GFR ML/MIN Glucose (74-106) mg/dL Calcium (8.4-10.2) mg/dL Total Bilirubin (0.2-1.3) mg/dL AST (14-36) U/L ALT (0-35) U/L Alkaline Phosphatase (38-126) U/L Troponin I (0.000-0.034) ng/mL NT-Pro-B Natriuret Pep (<300) pg/mL Serum Total Protein (6.3-8.2) g/dL Albumin (3.5-5.0) g/dL Influenza Type A Ag (NEGATIVE) Influenza Type B Ag (NEGATIVE) RSV (PCR) (NEGATIVE) SARS-CoV-2 (PCR) (NEGATIVE) - Progress Progress: improved, re-examined Air Movement: fair Progress Note: 04/15/23 11:37 This patient's medical issue is 1 of moderate complexity. Level complex in the workup performed is based on review the patient's past medical history, review the patient's medication list, history of present illness and physical findings on examination. The workup in this patient includes placement of intravenous line, CBC, CMP, troponin level, BNP level, twelve-lead EKG, chest x-ray, respiratory therapy evaluation and treatment, Solu-Medrol 125 mg intravenously. Will also repeat viral swabs in this patient. 04/15/23 12:03 Chest x-ray was interpreted by the radiologist and I reviewed the impression. The patient states nonacute chest x-ray with chronic features. 04/15/23 12:08 Patient still testing positive for COVID-19 infection. She was initially positive approximately 2 weeks ago. Blood Culture(s) Obtained: Yes Counseled pt/family regarding: lab results, diagnosis, need for follow-up, rad results Medical Desision Making - Independent Historian Additional History obtained from: Spouse - Diagnostic Testing Diagnostic test were ordered, analyzed, and reviewed by me: Yes Radiological Interpretation: Reviewed by me, Teleradiologist Report - Risk of complications The pt has a mod risk of morbidity or mortality based on: Need for prescription drug management - Departure Departure Disposition: Home Clinical Impression: COVID-19 virus infection Condition: Stable Critical Care Time: No Referrals: AMY MITCHELL BUSINESS SERVICES ADMINISTRATOR [Primary Care Provider] - Follow up/PCP as directed Additional Instructions: Drink plenty of fluids. Take your medications as prescribed. Use your nebuli zer treatments every 4 hours while awake. Return to the emergency department if symptoms worsen. Prescriptions: Prednisone 10 mg [Deltasone 10 mg] 10 mg PO TID #12 tablet
[2023-04-15] MEDS ORDERED: DUONEB 0.5-3 MG/3 ml Neb IH ONE ×2 (11:08→11:16)
[2023-04-15 11:27] LABS: Absolute Neutrophil Ct (ANC) 5.48 x10^3/uL (1.4-6.9); BASOPHIL % 0.3 % (0.0-0.4); Basophil (Absolute #) 0.03 x10^3/uL (0-0.4); Eosinophil % 2.1 % (0.00-5.0); Hematocrit 42.6 % (35-47); Hemoglobin 13.6 g/dL (12.0-16.0); IMMATURE GRAN # 0.08 x10^3u/L (0.00-0.03); IMMATURE GRAN % 0.8 % (0.00-0.4); Lymphocyte (Absolute #) 2.93 x10^3/uL (1.0-4.6); Lymphocytes % 31.1 % (24.0-44.0); Mean Cell Volume 95.7 fL (78-100); Mean Corpuscular Hemoglobin 30.6 pg (26-32); Mean Corpuscular Hgb Concent. 31.9 g/dL (32-36); Mean Platelet Volume 8.9 fL (7.5-11.0); Monocytes % 7.4 % (0.0-12.0); Neutrophil % 58.3 % (36.0-66.0); Platelet Count 301 x10^3/uL (150-450); Red Blood Count 4.45 x10^6/uL (4.1-5.4); Red Cell Distribution Width 14.3 % (11.5-14.0); White Blood Count 9.4 x10^3/uL (4.0-10.5)
--- NOTE | 2023-04-15 11:43 | XRAY ---
Indication: Short of breath. Comparison: April 08, 2022 Portable chest remains inflated and clear. Heart not enlarged again with small mediastinal calcified nodes. Bony thorax intact again with mild degenerative changes and minimal scoliosis. Impression: Continued nonacute chest with chronic features.
[2023-04-15 11:48] LABS: ALBUMIN 4.1 g/dL (3.5-5.0); ALKALINE PHOSPHATASE 81 U/L (38-126); ANION GAP 12.6 MEQ/L (5-15); BLOOD UREA NITROGEN 17 mg/dL (7-17); CHLORIDE 107 mmol/L (98-107); Calcium 8.9 mg/dL (8.4-10.2); Carbon Dioxide 22 mmol/L (22-30); Creatinine 1 0.53 mg/dL (0.52-1.04); EST GLOMERULAR FILTRATION RATE 108.5 ML/MIN; Glucose 130 mg/dL (74-106); NT PRO BNPII < 20.0 pg/mL (<300); Potassium 3.4 mmol/L (3.5-5.1); SGOT/AST 40 U/L (14-36); SGPT/ALT 53 U/L (0-35); SODIUM 138 mmol/L (137-145); Total Protein 7.1 g/dL (6.3-8.2)
[2023-04-15 12:01] VITALS: BP 120/83
[2023-04-15 12:02] LABS: INFLUENZA A NEGATIVE (NEGATIVE); INFLUENZA B NEGATIVE (NEGATIVE); RESPIRATORY SYNCTIAL VIRUS NEGATIVE (NEGATIVE)
[2023-04-15 12:06] LABS: SARS-CoV-2 Xpert Express POSITIVE (NEGATIVE)
[2023-04-15] MEDS ORDERED: solu-MEDROL 125 MG, Sterile H2O 10 ml 2 ML IV ONE ×2 (12:14)
[2023-04-15] MEDS ORDERED: solu-MEDROL ONE (12:19)
[2023-04-15] MEDS ORDERED: Sterile H2O 10 ml IJ ONE (12:19)
[2023-04-15 12:26] VITALS: PULSE 100; RESP 18; O2SAT 95
== END 2023-04-15 12:36 | disposition home or self-care (01) ==
LOC: ED 10:26
DX: U07.1 COVID-19 (principal); R06.02 Shortness of breath; J45.909 Unspecified asthma, uncomplicated; I10 Essential (primary) hypertension; Z79.52 Long term (current) use of systemic steroids; Z79.02 Long term (current) use of antithrombotics/antiplatelets; Z79.899 Other long term (current) drug therapy; Z28.310 Unvaccinated for COVID-19
CPT/HCPCS: 0241U; 36000; 36415; 71045; 80053; 83880; 84484; 85025; 93005; 94640; 94760; 96374; 99284; J2930; A9270-GY

== ENCOUNTER 2023-06-10 15:15 | Emergency (ER) | payer OTHER ==
[2023-06-10 15:27] VITALS: RESP 20
[2023-06-10] MEDS ORDERED: TORAdol 30 mg Injection ONE (15:58)
[2023-06-10] MEDS ORDERED: Norflex 60 MG/2 ML ONE (15:58)
[2023-06-10] MEDS: TORAdol 30 mg Injection IM ONE (16:05)
[2023-06-10] MEDS: Norflex 60 MG/2 ML IM ONE (16:05)
--- NOTE | 2023-06-10 16:46 | XRAY ---
Indication: Low back pain radiating both legs. Multiple contiguous axial images obtained through the lumbar spine. Sagittal and coronal reformatted images obtained. Comparison: CT abdomen/pelvis November 12, 2018 Gross is stable minimal L1-S1 broad-based disc osteophyte complex without obvious spinal canal stenosis. Facets are symmetric. Sagittal and coronal reformatted images again demonstrate normal lumbar lordosis with minimal levoscoliosis centered at L3. Vertebral body heights/disc spaces maintained. No acute compression fracture supposition. Visualized noncontrasted soft tissues are unremarkable. Impression: Stable minimal L1-S1 degenerative disc disease better evaluated with outpatient MRI if clinically warranted. Stable levoscoliosis. No new/acute findings.
[2023-06-10 17:18] VITALS: BP 122/76; PULSE 84; TEMP 97.2
[2023-06-10 17:20] VITALS: O2SAT 97
--- NOTE | 2023-06-10 17:20 | ERPHSYRPT ---
- History of Present Illness Time Seen by Provider: 06/10/23 15:38 Source: patient Exam Limitations: no limitations Patient Subjective Stated Complaint: Pt states "I have had problems with my lower back before but I have been fine for the past two years. About a month ago I was really sick and then my lower back started to hurt again. I have been to the clinic and I have been to [facility] but the pain is so much I need something done." Triage Nursing Assessment: Pt presented alert and oriented X 3, skin pwd. Pt ambulates with a slow gait. Pt able to speak in clear full sentences. Pt resting on the bed unable to sit with her back against the bed. Physician History: 58 years old female with multiple medical problems including hypertension, diabetes mellitus, chronic back pain needing injections in the low back was doing fine for 2 years after injection until a month ago when she started to have some low back pain with radiation to both lower hips, more with ambulation and better with resting. Patient denies any numbness tingling or weakness of lower extremities, no loss of bowel or bladder control/perineal numbness. No saddle anesthesia. Patient denies any fall or direct trauma to the back. She has been seen outpatient and taking Flexeril with no significant improvement. Denies any fever chills. Allergies/Adverse Reactions: codeine [Codeine] Allergy (Mild, Verified 04/15/23 10:29) doxycycline Allergy (Mild, Verified 04/15/23 10:29) Penicillins Allergy (Mild, Verified 04/15/23 10:29) aspirin Allergy (Unknown, Verified 04/15/23 10:29) Difficulty Breathing Patient states she has a sensitivity to aspirin. Home Medications: Lisinopril 10 mg [Zestril 10 MG] 10 mg PO BID 02/28/13 [History] Fluticasone/Salmeterol [Advair 250-50 Diskus] 2 puff IH BID 01/15/15 [History] Ipratropium/Albuterol Sulfate [Combivent Respimat Inhal [place]anan] 4 gm IH QID PRN 01/27/18 [History] Fexofenadine HCl [Anna Allergy] 60 mg PO DAILY 05/27/21 [History] Metoprolol Succinate 25 mg Xl* [Toprol-Xl 25MG Tablets] 50 mg PO DAILY 05/27/21 [History] Zafirlukast 20 mg [Accolate 20 mg] 10 mg PO BID 05/27/21 [History] Cyclobenzaprine HCl 5 mg PO DAILY 06/10/23 [History] Empagliflozin [Jardiance] 10 mg PO DAILY 06/10/23 [History] Hx Tetanus, Diphtheria Vaccination/Date Given: No Hx Influenza Vaccination/Date Given: No Hx Pneumococcal Vaccination/Date Given: No Immunizations Up to Date: No Travel Risk - International Travel Have you traveled outside of the country in past 3 weeks: No - Coronavirus Screening Are you exhibiting any of the following symptoms?: No Close contact with a COVID-19 positive Pt in past 14-21 Days: No - Vaccine Status Have you recieved a Covid-19 vaccination: No - Review of Systems Constitutional: No Symptoms Eyes: No Symptoms Ears, Nose, & Throat: No Symptoms Respiratory: No Symptoms Cardiac: No Symptoms Abdominal/Gastrointestinal: No Symptoms Genitourinary Symptoms: No Symptoms Musculoskeletal: Back Pain Skin: No Symptoms Neurological: No Symptoms Hematologic/Lymphatic: No Symptoms Immunological/Allergic: No Symptoms - Past Medical History Pertinent Past Medical History: Yes Neurological History: Migraines, Peripheral Neuropathy ENT History: Other Cardiac History: Hypertension Respiratory History: Asthma, Pneumonia Endocrine Medical History: Hypoglycemia Musculoskeletal History: Degenerative Disk Disease, Fibromyalgia, Osteoarthritis GI Medical History: GERD, Gallbladder Disease, Other History: Other Psycho-Social History: No Pertinent History Female Reproductive Disorders: No Pertinent History Other Medical History: PMHX: GERD, GALLBLADDER DISEASE CHRONIC FATIGUE SYNDROME, ACUTE KIDNEY FAILURE, SPIDURAL FOR BACK PAIN 02/20, 05/24. diabetes II - Past Surgical History Past Surgical History: Yes Neuro Surgical History: No Pertinent History Cardiac: No Pertinent History Respiratory: No Pertinent History Gastrointestinal: Cholecystectomy Genitourinary: No Pertinent History Musculoskeletal: No Pertinent History Female Surgical History: Dilation & Curettage Other Surgical History: sinus, d & c - Social History Smoking Status: Never smoker Exposure to second hand smoke: Yes Drug Use: none Patient Lives Alone: No Significant Family History: diabetes, hypertension - Nursing Vital Signs Nursing Vital Signs: Initial Vital Signs Temperature 97.1 F 06/10/23 15:21 Pulse Rate 98 H 06/10/23 15:21 Respiratory Rate 20 06/10/23 15:21 Blood Pressure 135/75 06/10/23 15:21 O2 Sat by Pulse Oximetry 97 06/10/23 15:21 Pain Scale Pain Intensity 4 - Physical Exam General Appearance: no apparent distress, alert Eye Exam: PERRL/EOMI Ears, Nose, Throat Exam: normal ENT inspection Neck Exam: normal inspection, full range of motion Respiratory Exam: normal breath sounds, lungs clear Cardiovascular Exam: regular rate/rhythm, normal heart sounds Gastrointestinal Exam: soft, No tenderness Back Exam: normal inspection, normal range of motion, vertebral tenderness ( Lower lumbar/sacral area), decreased range of motion, muscle spasm, point tenderness (Bilateral sacroiliac area) Extremity Exam: normal inspection, normal range of motion Neurologic Exam: alert, oriented x 3, cooperative, staff reporter II-XII nml as tested, sensation nml, No motor deficits Skin Exam: normal color SpO2 Interpretation: normal SpO2: 97 O2 Delivery: Room Air Ordered Tests: Active Orders 24 hr Category Date Time Status LUMBAR SPINE W/O [CT] Stat Exams 06/10/23 15:55 Completed Medication Summary Discontinued Medications Generic Name Dose Route Start Last Admin Trade Name Sahil PRN Reason Stop Dose Admin Ketorolac Tromethamine 30 mg 06/10/23 15:56 06/10/23 16:05 Ketorolac Tromethamine 30 Mg/Ml Inj IM 06/10/23 15:57 30 mg STAT ONE Administration Ketorolac Tromethamine Confirm 06/10/23 15:58 Ketorolac Tromethamine 30 Mg/Ml Inj Administered 06/10/23 15:59 Dose 30 mg .ROUTE .STK-MED ONE Orphenadrine Citrate 60 mg 06/10/23 15:55 06/10/23 16:05 Orphenadrine Citrate 60 Mg/2 Ml Vial IM 06/10/23 15:56 60 mg STAT ONE Administration Orphenadrine Citrate Confirm 06/10/23 15:58 Orphenadrine Citrate 60 Mg/2 Ml Vial Administered 06/10/23 15:59 Dose 60 mg .ROUTE .STK-MED ONE - Progress Progress: improved, re-examined Progress Note: 06/10/23 17:20 58-year-old female with history of chronic back pain needing epidural injections in the past is evaluated for increasing back pain for almost a month. She got injection last time almost 2 years ago. Patient has negative neuro exam in lower extremities. She is given Toradol and Norflex, on reevaluation she is feeling much better. CT lumbar spine is obtained which is negative for acute fracture subluxation or disc herniation, abscess/hematoma. I believe patient has acute on chronic low back pain exacerbation. I have recommended continue with muscle relaxant and will give her tramadol to help with acute phase of pain and outpatient follow-up with primary care and pain management. Discussed signs symptoms of worsening needing return to ER which she seems understanding. Counseled pt/family regarding: diagnosis, need for follow-up, rad results Medical Desision Making - Independent Historian Additional History obtained from: Spouse - Diagnostic Testing Diagnostic test were ordered, analyzed, and reviewed by me: Yes Radiological Interpretation: Reviewed by me - Risk of complications The pt has a mod risk of morbidity or mortality based on: Need for prescription drug management - Departure Departure Disposition: Home Clinical Impression: Acute exacerbation of chronic low back pain Condition: Stable Critical Care Time: No Referrals: AMY MITCHELL NP [Primary Care Provider] - Follow up with PCP 1 day YAMILETH GRIMES MD [CONSULTING PHYSICIAN] - Follow up/PCP as directed (Call tomorrow for appointment for reevaluation) Instructions: Low Back Pain (DC) Prescriptions: Tramadol HCl 50 mg [Ultram 50 mg] 50 mg PO Q6HPRN PRN 3 Days #12 tablet PRN Reason: Pain
== END 2023-06-10 17:35 | disposition home or self-care (01) ==
LOC: ED 15:15
DX: G89.29 Other chronic pain (principal); M54.50 Low back pain, unspecified; I10 Essential (primary) hypertension; E11.42 Type 2 diabetes mellitus with diabetic polyneuropathy; Z79.891 Long term (current) use of opiate analgesic; Z79.84 Long term (current) use of oral hypoglycemic drugs; Z79.899 Other long term (current) drug therapy; Z28.310 Unvaccinated for COVID-19
CPT/HCPCS: 72131; 96372; 99283; J1885; J2360

== ENCOUNTER 2023-08-11 08:06 | Day surgery (SDC) | payer OTHER ==
[2023-08-11] MEDS ORDERED: BUPIVACAINE 0.5% VIAL IJ ONE (08:07)
[2023-08-11] MEDS ORDERED: Depo-Medrol 40 MG/ML IM ONE (08:07)
[2023-08-11] MEDS ORDERED: Lactated Ringers 1,000 ML IV ONE (09:43)
[2023-08-11] MEDS ORDERED: DIPRIVAN 200 MG/20 ML IV ONE ×2 (10:01→10:06)
--- NOTE | 2023-08-11 11:49 | XRAY ---
Indication: Bilateral SI joint injection. Intraoperative fluoroscopy provided for 37 seconds. 3 digital spot images submitted for interpretation demonstrates posterior needle tips projecting over the left and right SI joint. Small amount of contrast injected for needle tip placement. Correlate with intraoperative findings/report.
--- NOTE | 2023-08-11 12:20 | XRAY ---
37 seconds of fluoroscopy was used in surgery for a bilateral sacroiliac joint injection.
== END 2023-08-11 10:35 | disposition home or self-care (01) ==
LOC: SDC-PAIN 08:06
PROVIDERS: ATTEND Psychiatry & Neurology Pain Medicine
DX: M46.1 Sacroiliitis, not elsewhere classified (principal); E11.9 Type 2 diabetes mellitus without complications
CPT/HCPCS: 27096; 72202; 77002; 82947; G0260; J1010; J2704; Q9966; J1030

== ENCOUNTER 2023-08-18 20:11 | Emergency (ER) | payer OTHER ==
[2023-08-18 20:31] VITALS: TEMP 98.2
[2023-08-18 21:34] VITALS: O2SAT 95
[2023-08-18] MEDS ORDERED: DECADRON 10MG INJ. ONE (21:36)
[2023-08-18] MEDS ORDERED: TORAdol 30 mg Injection ONE (21:36)
[2023-08-18] MEDS: DECADRON 10MG INJ. IM ONE (21:39)
[2023-08-18] MEDS: TORAdol 30 mg Injection IM ONE (21:39)
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
[2023-08-18 22:24] VITALS: BP 117/68; PULSE 80; RESP 19
== END 2023-08-18 22:38 | disposition home or self-care (01) ==
LOC: ED 20:11
DX: M54.50 Low back pain, unspecified (principal)
CPT/HCPCS: 96372; 99283; J1100; J1885

== ENCOUNTER 2023-10-13 07:52 | Day surgery (SDC) | payer OTHER ==
[2023-10-13] MEDS ORDERED: DIPRIVAN 200 MG/20 ML IV ONE (09:28)
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
--- NOTE | 2023-10-13 10:50 | XRAY ---
13 seconds of fluoroscopy was used in surgery for a bilateral L4-S1 MBB.
[2023-10-13] MEDS ORDERED: Lactated Ringers 1,000 ML IV ONE (15:01)
== END 2023-10-13 09:53 | disposition home or self-care (01) ==
LOC: SDC-PAIN 07:52
PROVIDERS: ATTEND Psychiatry & Neurology Pain Medicine
DX: M47.816 Spondylosis without myelopathy or radiculopathy, lumbar region (principal); E11.9 Type 2 diabetes mellitus without complications
CPT/HCPCS: 64493; 64494; 72020; 77002; 82947; J2704